=== PATIENT | female | born 1935 | race Hispanic/Latino ===

== ENCOUNTER 2020-12-16 18:44 | Inpatient (IN) | payer MEDICARE ==
[2020-12-16] MEDS ORDERED: SODIUM CHLORIDE 0.9% 1000 ML 1,000 ML ONE (18:53)
[2020-12-16] MEDS ORDERED: SODIUM CHLORIDE 0.9% 1000 ML 1,000 ML IV ONE ×3 (18:55→20:25)
[2020-12-16] MEDS ORDERED: methylPREDNISolone Sod Succinate 125 MG/2 ML INJ IV ONE (18:56)
[2020-12-16] MEDS ORDERED: IPRATROPIUM 0.02% NEBU 2.5 ML IH ONE (18:56)
[2020-12-16] MEDS ORDERED: ALBUTEROL 2.5 MG/3 ML NEBU IH ONE (18:56)
--- NOTE | 2020-12-16 19:00 | Emergency Department Report ---
ED Shortness of Breath HPI - General Stated Complaint: YENNY Time Seen by Provider: 12/16/20 18:53 Source: EMS - History of Present Illness Initial Comments: Patient is 85 years old female, longterm. Patient with history of COPD, dementia and recent diagnosis of COVID-19. Patient brought to the emergency room for evaluation of shortness of breath and tachypnea. Patient is not communicating. Patient found to have a blood pressure of 90/42. Sepsis protocol immediately initiated and patient started on normal saline, Zosyn, albuterol, Atrovent and Solu-Medrol. Complaint: shortness of breath -: days(s) Known History Of: COPD Context: recent URI - Related Data Allergies Allergy/AdvReac Type Severity Reaction Status Date / Time codeine AdvReac Unknown Verified 12/16/20 19:09 diphenhydramine AdvReac Unknown Verified 12/16/20 19:09 [From Benadryl] oxycodone AdvReac Unknown Verified 12/16/20 19:09 ED Review of Systems ROS: Stated complaint: YENNY Other details as noted in HPI Comment: Unobtainable due to pts medical conditions ED Physical Exam - General Limitations: Altered Mental Status General appearance: obtunded - Head Head exam: Present: atraumatic, normocephalic, normal inspection - Eye Eye exam: Present: normal appearance - ENT ENT exam: Present: mucous membranes dry - Neck Neck exam: Present: normal inspection, full ROM. Absent: tenderness, meningismus - Respiratory Respiratory exam: Present: respiratory distress, wheezes, rales, decreased breath sounds. Absent: rhonchi, accessory muscle use, prolonged expiratory - Cardiovascular Cardiovascular Exam: Present: tachycardia - GI/Abdominal GI/Abdominal exam: Present: soft, normal bowel sounds. Absent: distended, tenderness, guarding, rebound, rigid, organomegaly, mass, bruit, pulsatile mass, hernia - Extremities Exam Extremities exam: Absent: calf tenderness - Neurological Exam Neurological exam: Present: altered - Skin Skin exam: Present: warm, dry ED Course Vital Signs 12/16/20 12/16/20 12/16/20 18:48 19:00 19:02 Temperature 98.8 F Pulse Rate 125 H 119 H 118 H Pulse Rate [ Bilateral Throughout] Pulse Rate [ From Monitor] Respiratory 45 H 38 H 42 H Rate Respiratory Rate [Bilateral Throughout] Blood Pressure 101/37 81/43 O2 Sat by Pulse 96 91 Oximetry 12/16/20 12/16/20 12/16/20 19:10 19:15 19:20 Temperature Pulse Rate 118 H 115 H 114 H Pulse Rate [ 127 H Bilateral Throughout] Pulse Rate [ From Monitor] Respiratory 33 H 31 H 34 H Rate Respiratory 24 Rate [Bilateral Throughout] Blood Pressure 99/35 101/22 111/30 O2 Sat by Pulse 99 98 98 Oximetry 12/16/20 12/16/20 12/16/20 19:25 19:30 19:35 Temperature Pulse Rate 115 H 111 H 112 H Pulse Rate [ Bilateral Throughout] Pulse Rate [ From Monitor] Respiratory 32 H 54 H 39 H Rate Respiratory Rate [Bilateral Throughout] Blood Pressure 80/25 90/24 82/21 O2 Sat by Pulse 98 97 Oximetry 12/16/20 12/16/20 12/16/20 19:41 19:45 19:50 Temperature Pulse Rate 112 H 113 H 112 H Pulse Rate [ Bilateral Throughout] Pulse Rate [ From Monitor] Respiratory 53 H 40 H 74 H Rate Respiratory Rate [Bilateral Throughout] Blood Pressure 76/19 78/22 82/16 O2 Sat by Pulse 96 95 95 Oximetry 12/16/20 12/16/20 12/16/20 19:55 20:00 20:05 Temperature Pulse Rate 113 H 113 H 114 H Pulse Rate [ Bilateral Throughout] Pulse Rate [ From Monitor] Respiratory 68 H 55 H 48 H Rate Respiratory Rate [Bilateral Throughout] Blood Pressure 72/23 77/30 79/23 O2 Sat by Pulse 95 94 95 Oximetry 12/16/20 12/16/20 12/16/20 20:10 20:15 20:20 Temperature Pulse Rate 113 H 114 H 116 H Pulse Rate [ Bilateral Throughout] Pulse Rate [ From Monitor] Respiratory 69 H 54 H 39 H Rate Respiratory Rate [Bilateral Throughout] Blood Pressure 81/29 71/27 72/24 O2 Sat by Pulse 94 95 96 Oximetry 12/16/20 12/16/20 12/16/20 20:25 20:30 20:35 Temperature Pulse Rate 116 H 112 H 117 H Pulse Rate [ Bilateral Throughout] Pulse Rate [ From Monitor] Respiratory 69 H 37 H 35 H Rate Respiratory Rate [Bilateral Throughout] Blood Pressure 64/26 62/26 79/16 O2 Sat by Pulse 95 96 96 Oximetry 12/16/20 12/16/20 12/16/20 20:40 20:45 20:51 Temperature Pulse Rate 115 H 120 H 121 H Pulse Rate [ Bilateral Throughout] Pulse Rate [ From Monitor] Respiratory 36 H 37 H 78 H Rate Respiratory Rate [Bilateral Throughout] Blood Pressure 88/19 102/27 102/27 O2 Sat by Pulse 96 95 92 Oximetry 12/16/20 12/16/20 12/16/20 20:55 21:01 21:05 Temperature Pulse Rate 115 H 116 H 118 H Pulse Rate [ Bilateral Throughout] Pulse Rate [ From Monitor] Respiratory 34 H 29 H 28 H Rate Respiratory Rate [Bilateral Throughout] Blood Pressure 102/27 114/96 114/96 O2 Sat by Pulse 94 94 Oximetry 12/16/20 12/16/20 12/16/20 21:11 21:15 21:21 Temperature Pulse Rate 128 H 120 H 118 H Pulse Rate [ Bilateral Throughout] Pulse Rate [ From Monitor] Respiratory 33 H 27 H 34 H Rate Respiratory Rate [Bilateral Throughout] Blood Pressure 114/96 154/122 154/122 O2 Sat by Pulse 85 96 97 Oximetry 12/16/20 12/16/20 12/16/20 21:25 21:31 21:35 Temperature Pulse Rate 118 H 124 H 119 H Pulse Rate [ Bilateral Throughout] Pulse Rate [ From Monitor] Respiratory 49 H 41 H 28 H Rate Respiratory Rate [Bilateral Throughout] Blood Pressure 154/122 122/51 122/51 O2 Sat by Pulse 86 96 96 Oximetry 12/16/20 12/16/20 12/16/20 21:41 21:45 21:51 Temperature Pulse Rate 118 H 118 H 120 H Pulse Rate [ Bilateral Throughout] Pulse Rate [ From Monitor] Respiratory 63 H 25 H 23 Rate Respiratory Rate [Bilateral Throughout] Blood Pressure 113/13 113/13 113/13 O2 Sat by Pulse 97 97 95 Oximetry 12/16/20 12/16/20 12/16/20 21:55 22:01 22:05 Temperature Pulse Rate 120 H 120 H 120 H Pulse Rate [ Bilateral Throughout] Pulse Rate [ From Monitor] Respiratory 19 52 H 45 H Rate Respiratory Rate [Bilateral Throughout] Blood Pressure 95/25 95/25 95/25 O2 Sat by Pulse 96 96 98 Oximetry 12/16/20 12/16/20 12/16/20 22:11 22:15 22:21 Temperature Pulse Rate 124 H 124 H 117 H Pulse Rate [ Bilateral Throughout] Pulse Rate [ From Monitor] Respiratory 36 H 31 H 34 H Rate Respiratory Rate [Bilateral Throughout] Blood Pressure 56/13 56/13 56/13 O2 Sat by Pulse 95 95 96 Oximetry 12/16/20 12/16/20 12/16/20 22:25 22:31 22:35 Temperature Pulse Rate 120 H 121 H 121 H Pulse Rate [ Bilateral Throughout] Pulse Rate [ From Monitor] Respiratory 23 32 H 32 H Rate Respiratory Rate [Bilateral Throughout] Blood Pressure 84/33 84/33 80/26 O2 Sat by Pulse 96 94 96 Oximetry 12/16/20 12/16/20 12/16/20 22:41 22:45 22:51 Temperature Pulse Rate 120 H 124 H 124 H Pulse Rate [ Bilateral Throughout] Pulse Rate [ From Monitor] Respiratory 30 H 35 H 36 H Rate Respiratory Rate [Bilateral Throughout] Blood Pressure 80/26 80/26 80/26 O2 Sat by Pulse 96 97 97 Oximetry 12/16/20 12/16/20 12/16/20 22:55 23:00 23:05 Temperature Pulse Rate 124 H 118 H 115 H Pulse Rate [ Bilateral Throughout] Pulse Rate [ From Monitor] Respiratory 25 H 33 H 22 Rate Respiratory Rate [Bilateral Throughout] Blood Pressure 80/26 79/25 79/25 O2 Sat by Pulse 95 96 96 Oximetry 12/16/20 12/16/20 12/16/20 23:11 23:15 23:21 Temperature Pulse Rate 118 H 116 H 118 H Pulse Rate [ Bilateral Throughout] Pulse Rate [ From Monitor] Respiratory 33 H 24 43 H Rate Respiratory Rate [Bilateral Throughout] Blood Pressure 79/25 79/25 79/25 O2 Sat by Pulse 95 96 96 Oximetry 12/16/20 12/16/20 12/16/20 23:25 23:31 23:35 Temperature Pulse Rate 116 H 117 H 117 H Pulse Rate [ Bilateral Throughout] Pulse Rate [ From Monitor] Respiratory 31 H 23 21 Rate Respiratory Rate [Bilateral Throughout] Blood Pressure 79/25 84/48 84/48 O2 Sat by Pulse 97 96 96 Oximetry 12/16/20 12/16/20 12/16/20 23:41 23:45 23:51 Temperature Pulse Rate 121 H 120 H 121 H Pulse Rate [ Bilateral Throughout] Pulse Rate [ From Monitor] Respiratory 41 H 26 H 28 H Rate Respiratory Rate [Bilateral Throughout] Blood Pressure 84/48 84/48 72/42 O2 Sat by Pulse 95 96 96 Oximetry 12/16/20 12/17/20 12/17/20 23:55 00:01 00:05 Temperature Pulse Rate 121 H 122 H 122 H Pulse Rate [ Bilateral Throughout] Pulse Rate [ From Monitor] Respiratory 55 H 29 H 30 H Rate Respiratory Rate [Bilateral Throughout] Blood Pressure 72/42 72/42 78/28 O2 Sat by Pulse 96 96 96 Oximetry 12/17/20 12/17/20 12/17/20 00:11 00:15 00:21 Temperature Pulse Rate 122 H 122 H 121 H Pulse Rate [ Bilateral Throughout] Pulse Rate [ From Monitor] Respiratory 29 H 25 H 27 H Rate Respiratory Rate [Bilateral Throughout] Blood Pressure 58/37 84/48 84/48 O2 Sat by Pulse 96 96 96 Oximetry 12/17/20 12/17/20 12/17/20 00:25 00:31 00:35 Temperature Pulse Rate 117 H 114 H 116 H Pulse Rate [ Bilateral Throughout] Pulse Rate [ From Monitor] Respiratory 18 27 H 60 H Rate Respiratory Rate [Bilateral Throughout] Blood Pressure 84/48 96/38 96/38 O2 Sat by Pulse 95 97 97 Oximetry 12/17/20 12/17/20 12/17/20 00:41 00:51 01:01 Temperature Pulse Rate 116 H 114 H 112 H Pulse Rate [ Bilateral Throughout] Pulse Rate [ From Monitor] Respiratory 30 H 42 H 27 H Rate Respiratory Rate [Bilateral Throughout] Blood Pressure 96/38 92/48 84/34 O2 Sat by Pulse 96 98 98 Oximetry 12/17/20 12/17/20 12/17/20 01:10 01:55 01:57 Temperature 98.0 F Pulse Rate 114 H Pulse Rate [ Bilateral Throughout] Pulse Rate [ 119 H From Monitor] Respiratory 62 H Rate Respiratory Rate [Bilateral Throughout] Blood Pressure 84/34 O2 Sat by Pulse 97 95 Oximetry - Reevaluation(s) Reevaluation #1: 12/16/20 20:02 Patient blood pressure dropped to 69/40. Advised the nurse to start another IV lines and given another liter of fluids. Reevaluation #2: 12/16/20 21:03 Patient blood pressure now is improved significantly at 114/76. Oxygen saturation is 96% on 4 L. Patient improved after albuterol treatment. - Central Line Placement Right Femoral Consent Obtained: emergent situation Time Out Performed: Yes Patient Placed on Monitor/Pulse Ox: Yes MD Prep: mask, gown, gloves Central Line Prep: Povidone-Iodine 1%, Chlorhexidine scrub, sterile drapes applied Local Anesthesia Used: Lidocaine 1% Ultrasound Used for Placement: Yes Central Line Lumen Inserted: triple Reason for Insertion: Volume Resuscitation Bloods Obtained for Lab: No Central Line Position: good blood return, all ports aspirated, flus, sutured in place with 2-0 Dressing Applied: Tegaderm, sterile gauze/tape Patient Tolerated Procedure: well, no complications Complications: none ED Medical Decision Making - Lab Data Result diagrams: 12/17/20 07:59 12/17/20 07:59 - EKG Data -: EKG Interpreted by Me EKG shows normal: sinus rhythm Rate: tachycardia - EKG Data Interpretation: no acute changes - Radiology Data Radiology results: report reviewed - Medical Decision Making Patient is 85 years old female, longterm. Patient with history of COPD, dementia and recent diagnosis of COVID-19. Patient brought to the emergency room for evaluation of shortness of breath and tachypnea. Patient is not communicating. Patient found to have a blood pressure of 90/42. Sepsis protocol immediately initiated and patient started on normal saline, Zosyn, albuterol, Atrovent and Solu-Medrol. Chest x-ray showed right lower lobe pneumonia. Labs reviewed and showed a white blood cells of 18,000. Creatinine of 5.8 and potassium of 5.2. Patient is in acute renal failure secondary to sepsis. Patient received Zosyn and vancomycin. I discussed the patient with Dr. Garcia, he agreed to admit the patient to [facility] service for further management. Critical Care Time: Yes Critical care time in (mins) excluding proc time.: 30 Critical care attestation.: If time is entered above; I have spent that time in minutes in the direct care of this critically ill patient, excluding procedure time. ED Disposition Clinical Impression: Sepsis, Right lower lobe pneumonia, Acute renal failure, Acute hyperkalemia, Suspected COVID-19 virus infection Disposition: OP ADMIT IP TO THIS HOSP Is pt being admited?: Yes Condition: Stable
[2020-12-16 19:10] LABS: Basophils % (Auto) 0.2 % (0.0-1.8); Hematocrit 32.8 % (30.3-42.9); Hemoglobin 10.5 gm/dl (10.1-14.3); Lymphocytes # (Auto) 0.8 K/mm3 (1.2-5.4); Lymphocytes % (Auto) 4.1 % (13.4-35.0); Mean Corpuscular HGB Conc 32 % (30-34); Mean Corpuscular Volume 91 fl (79-97); Monocytes # (Auto) 1.1 K/mm3 (0.0-0.8); Monocytes % (Auto) 5.9 % (0.0-7.3)
[2020-12-16 19:11] LABS: Platelet Count 196 K/mm3 (140-440)
[2020-12-16] MEDS ORDERED: PIPERACILLIN/TAZOBACTAM 3.375 3.375 GM/50 ML BAG IV ONE (19:21)
--- NOTE | 2020-12-16 19:21 | XRay Report ---
CHEST 1 VIEW 12/16/2020 6:50 PM INDICATION / CLINICAL INFORMATION: Shortness of breath. COMPARISON: None available. FINDINGS: SUPPORT DEVICES: None. HEART / MEDIASTINUM: No significant abnormality. LUNGS / PLEURA: Hazy right basilar opacity that can indicate atelectasis and/or pneumonia. No pneumot horax. ADDITIONAL FINDINGS: No significant additional findings. IMPRESSION: 1. Hazy right basilar opacity that may indicate atelectasis and/or pneumonia. Signer Name: Edgar Nelson MD Signed: 12/16/2020 7:16 PM Workstation Name: [id number]
[2020-12-16 19:27] LABS: Alanine Aminotransferase 70 units/L (7-56); Albumin 3.1 g/dL (3.9-5); Calcium 8.8 mg/dL (8.4-10.2); Hemolysis Index 10
[2020-12-16 19:32] LABS: Bilirubin,Direct < 0.2 mg/dL (0-0.2)
[2020-12-16 19:33] LABS: BUN/Creatinine Ratio 33; Blood Urea Nitrogen 191 mg/dL (7-17)
[2020-12-16 19:36] LABS: ABG Base Excess -12.9 mmol/L (-2.0-3.0); ABG HCO3 12.7 mmol/L (20.0-26.0); ABG Methemoglobin 0.5 % (0.0-1.5); ABG Oxygen Saturation 93.4 % (95.0-99.0); ABG PCO2 28.5 mm Hg; ABG PH 7.266 pH Units (7.350-7.450); ABG PO2 72.2 mm Hg (80.0-90.0)
[2020-12-16 19:54] LABS: Chol/HDL Ratio 4.12 %
[2020-12-16] MEDS ORDERED: VANCOMYCIN/NS 1 GM/250 ML 1 GM/250 ML BAG IV ONE (20:26)
[2020-12-16 21:42] LABS: C-Reactive Protein 11.3 mg/dL (0.00-1.30)
[2020-12-16] MEDS ORDERED: ONDANSETRON 4 MG/2 ML INJ IV PRN (22:02)
[2020-12-16] MEDS ORDERED: MAGNESIUM HYDROXIDE (MOM) ORAL LIQD UDC PO PRN (22:02)
--- NOTE | 2020-12-16 22:15 | History and Physical Report ---
History of Present Illness Date of examination: 12/16/20 Date of admission: 12/16/2020 Chief complaint: Shortness of Breath History of present illness: 85-year-old female with known history of COPD, dementia and a recent history of COVID-19 who is resident of a intermediate presents to the emergency room today for evaluation of shortness of breath and tachypnea. Patient is nonverbal most of the history was obtained from the ER staff. Upon arrival in the emergency room patient was found to be hypotensive with a blood pressure of 69/40. Patient was immediately placed on IV fluid with improvement of blood pressure to the low 100s systolic. Work-up in the emergency room reveals a right lower lobe pneumonia. Labs reveals hyperkalemia of 5.2, elevated BUN and creatinine of 191 and 5.8 respectively. Patient is being admitted with pneumonia, acute renal failure and hyperkalemia. We will also rule out for COVID-19. Past History Past Medical History: COPD, other (Dementia,COVID-19 recently) Past Surgical History: No surgical history Social history: no significant social history, other ([facility] Resident) Family history: no significant family history Medications and Allergies Allergies Allergy/AdvReac Type Severity Reaction Status Date / Time codeine AdvReac Unknown Verified 12/16/20 19:09 diphenhydramine AdvReac Unknown Verified 12/16/20 19:09 [From Benadryl] oxycodone AdvReac Unknown Verified 12/16/20 19:09 Active Meds: Active Medications Acetaminophen (Acetaminophen 325 Mg Tab) 650 mg PO Q4H PRN PRN Reason: Pain MILD(1-3)/Fever >100.5/BUCKLEY Heparin Sodium (Porcine) (Heparin 5,000 Unit/1 Ml Vial) 5,000 unit SUB-Q Q8HR ZENIA Sodium Chloride (Nacl 0.9% 1000 Ml) 1,000 mls @ 125 mls/hr IV DIRECT ZENIA Piperacillin Sod/Tazobactam Sod (Zosyn/Ns 3.375gm/50ml) 3.375 gm in 50 mls @ 100 mls/hr IV Q8H ZENIA; Protocol Magnesium Hydroxide (Magnesium Hydroxide (Mom) Oral Liqd Udc) 30 ml PO Q4H PRN PRN Reason: Constipation Ondansetron HCl (Ondansetron 4 Mg/2 Ml Inj) 4 mg IV Q8H PRN PRN Reason: Nausea And Vomiting Sodium Chloride (Sodium Chloride 0.9% 10 Ml Flush Syringe) 10 ml IV BID ZENIA Sodium Chloride (Sodium Chloride 0.9% 10 Ml Flush Syringe) 10 ml IV PRN PRN PRN Reason: LINE FLUSH Review of Systems ROS unobtainable: due to mental status Exam - Constitutional Vitals: Temp Pulse Resp BP Pulse Ox 98.8 F 116 H 39 H 72/24 96 12/16/20 19:02 12/16/20 20:20 12/16/20 20:20 12/16/20 20:20 12/16/20 20:20 General appearance: Present: no acute distress, well-nourished, other (Dry Oral Mucosa) - EENT Eyes: Present: PERRL, EOM intact. Absent: scleral icterus ENT: hearing intact, clear oral mucosa, dentition normal - Neck Neck: Present: supple, normal ROM - Respiratory Respiratory effort: normal Respiratory: bilateral: diminished - Cardiovascular Heart Sounds: Present: S1 & S2. Absent: gallop, systolic murmur, diastolic murmur, rub, click - Extremities Extremities: no ischemia, pulses intact, pulses symmetrical, No edema, normal temperature, normal color, Full ROM Peripheral Pulses: within normal limits - Abdominal General gastrointestinal: Present: soft, non-tender, non-distended, normal bowel sounds. Absent: mass - Integumentary Integumentary: Present: clear, warm, dry. Absent: rash - Musculoskeletal Musculoskeletal: strength equal bilaterally - Psychiatric Psychiatric: appropriate mood/affect, intact judgment & insight, memory intact, cooperative - Neurologic Neurologic: CNII-XII intact, no focal deficits, moves all extremities HEART Score - HEART Score Troponin: Troponin T 0.113 ng/mL (0.00-0.029) H* 12/16/20 18:59 Results - Labs CBC & Chem 7: 12/16/20 18:59 12/16/20 21:03 Labs: Abnormal lab results 12/16/20 12/16/20 12/16/20 Range/Units 18:51 18:59 18:59 WBC 18.2 H (4.5-11.0) K/mm3 RBC 3.60 L (3.65-5.03) M/mm3 RDW 18.0 H (13.2-15.2) % Lymph % (Auto) 4.1 L (13.4-35.0) % Lymph # (Auto) 0.8 L (1.2-5.4) K/mm3 Leslie # (Auto) 1.1 H (0.0-0.8) K/mm3 Seg Neutrophils % 89.8 H (40.0-70.0) % Seg Neutrophils # 16.3 H (1.8-7.7) K/mm3 D-Dimer (0-234) ng/mlDDU ABG pH (7.350-7.450) pH Units ABG pO2 (80.0-90.0) mm Hg ABG HCO3 (20.0-26.0) mmol/L ABG O2 Saturation (95.0-99.0) % ABG Base Excess (-2.0-3.0) mmol/L ABG Hemoglobin (12.0-16.0) gm/dl Oxyhemoglobin (95.0-99.0) % Potassium (3.6-5.0) mmol/L Carbon Dioxide (22-30) mmol/L BUN (7-17) mg/dL Creatinine (0.6-1.2) mg/dL Glucose (65-100) mg/dL POC Glucose 160 H (70-105) mg/dL Ferritin (10.0-200.0) ng/mL ALT (7-56) units/L Lactate Dehydrogenase (91-180) units/L Troponin T 0.113 H* (0.00-0.029) ng/mL C-Reactive Protein (0.00-1.30) mg/dL NT-Pro-B Natriuret Pep (0-900) pg/mL Total Protein (6.3-8.2) g/dL Albumin (3.9-5) g/dL HDL Cholesterol 24 L (40-59) mg/dL 12/16/20 12/16/20 12/16/20 Range/Units 18:59 18:59 19:29 WBC (4.5-11.0) K/mm3 RBC (3.65-5.03) M/mm3 RDW (13.2-15.2) % Lymph % (Auto) (13.4-35.0) % Lymph # (Auto) (1.2-5.4) K/mm3 Leslie # (Auto) (0.0-0.8) K/mm3 Seg Neutrophils % (40.0-70.0) % Seg Neutrophils # (1.8-7.7) K/mm3 D-Dimer 3183.35 H (0-234) ng/mlDDU ABG pH 7.266 L (7.350-7.450) pH Units ABG pO2 72.2 L (80.0-90.0) mm Hg ABG HCO3 12.7 L (20.0-26.0) mmol/L ABG O2 Saturation 93.4 L (95.0-99.0) % ABG Base Excess -12.9 L (-2.0-3.0) mmol/L ABG Hemoglobin 11.4 L (12.0-16.0) gm/dl Oxyhemoglobin 91.6 L (95.0-99.0) % Potassium 5.2 H (3.6-5.0) mmol/L Carbon Dioxide 13 L (22-30) mmol/L BUN 191 H (7-17) mg/dL Creatinine 5.8 H (0.6-1.2) mg/dL Glucose 187 H (65-100) mg/dL POC Glucose (70-105) mg/dL Ferritin (10.0-200.0) ng/mL ALT 70 H (7-56) units/L Lactate Dehydrogenase (91-180) units/L Troponin T (0.00-0.029) ng/mL C-Reactive Protein (0.00-1.30) mg/dL NT-Pro-B Natriuret Pep 1116 H (0-900) pg/mL Total Protein 5.7 L (6.3-8.2) g/dL Albumin 3.1 L (3.9-5) g/dL HDL Cholesterol (40-59) mg/dL 12/16/20 12/16/20 Range/Units 21:03 21:03 WBC (4.5-11.0) K/mm3 RBC (3.65-5.03) M/mm3 RDW (13.2-15.2) % Lymph % (Auto) (13.4-35.0) % Lymph # (Auto) (1.2-5.4) K/mm3 Leslie # (Auto) (0.0-0.8) K/mm3 Seg Neutrophils % (40.0-70.0) % Seg Neutrophils # (1.8-7.7) K/mm3 D-Dimer (0-234) ng/mlDDU ABG pH (7.350-7.450) pH Units ABG pO2 (80.0-90.0) mm Hg ABG HCO3 (20.0-26.0) mmol/L ABG O2 Saturation (95.0-99.0) % ABG Base Excess (-2.0-3.0) mmol/L ABG Hemoglobin (12.0-16.0) gm/dl Oxyhemoglobin (95.0-99.0) % Potassium (3.6-5.0) mmol/L Carbon Dioxide (22-30) mmol/L BUN (7-17) mg/dL Creatinine (0.6-1.2) mg/dL Glucose 172 H (65-100) mg/dL POC Glucose (70-105) mg/dL Ferritin 559.4 H (10.0-200.0) ng/mL ALT (7-56) units/L Lactate Dehydrogenase 249 H (91-180) units/L Troponin T (0.00-0.029) ng/mL C-Reactive Protein 11.30 H (0.00-1.30) mg/dL NT-Pro-B Natriuret Pep (0-900) pg/mL Total Protein (6.3-8.2) g/dL Albumin (3.9-5) g/dL HDL Cholesterol (40-59) mg/dL Assessment and Plan - Patient Problems (1) Right lower lobe pneumonia Current Visit: Yes Status: Acute Plan to address problem: Patient placed on empiric antibiotics. Will await culture results. (2) Sepsis Current Visit: Yes Status: Acute Plan to address problem: Secondary to the pneumonia. Continue on IV fluid . Will monitor labs. (3) Acute hyperkalemia Current Visit: Yes Status: Acute Plan to address problem: Will monitor potassium levels. Continue on IV fluid. (4) Acute renal failure Current Visit: Yes Status: Acute Plan to address problem: Possible pre-renal. Patient placed on IV fluid. However, consult placed to nephrology for further recommendation. (5) Suspected COVID-19 virus infection Current Visit: Yes Status: Acute Plan to address problem: Patient placed on isolation precaution. Consult placed to infectious disease for evaluation. (6) DVT prophylaxis Current Visit: Yes Status: Acute Plan to address problem: Patient placed on SQ heparin (7) Full code status Current Visit: Yes Status: Acute Plan to address problem: Full Code
[2020-12-16] MEDS ORDERED: VANCOMYCIN PHARMACY TO DOSE IV SCH (23:00)
[2020-12-16] MEDS ORDERED: VANCOMYCIN 750 MG in SODIUM CHLORIDE 0.9% 250ML 250 ML IV ONE (23:00)
[2020-12-16] MEDS ORDERED: PIPERACILLIN/TAZOBACTAM 3.375 3.375 GM/50 ML BAG IV SCH (23:00)
[2020-12-16] MEDS: NORepinephrine/NS 8 MG-250 ML 8 MG/250 ML INFUS..BTL IV SCH (23:45)
[2020-12-17] MEDS: NORepinephrine/NS 8 MG-250 ML 8 MG/250 ML INFUS..BTL IV SCH ×2 (00:15→00:45)
[2020-12-17] MEDS: SODIUM CHLORIDE 0.9% 1000 ML 1,000 ML IV SCH ×2 (01:51→09:58)
[2020-12-17] MEDS: HEPARIN 5,000 UNIT/1 ML VIAL SUB-Q SCH ×3 (07:47→21:33)
[2020-12-17 08:24] LABS: Hematocrit 31.4 % (30.3-42.9); Hemoglobin 10.1 gm/dl (10.1-14.3); Mean Corpuscular HGB Conc 32 % (30-34); Mean Corpuscular Volume 91 fl (79-97); Platelet Count 149 K/mm3 (140-440); Red Blood Count 3.45 M/mm3 (3.65-5.03); Red Cell Distribution Width 17.4 % (13.2-15.2)
[2020-12-17 08:30] LABS: INR 1.3 (0.87-1.13)
[2020-12-17 08:40] LABS: Calcium 7.7 mg/dL (8.4-10.2)
[2020-12-17] MEDS ORDERED: PIPERACILLIN/TAZOBACTAM 3.375 3.375 GM/50 ML BAG IV SCH (09:00)
[2020-12-17] MEDS: CEFEPIME/NS 2 GM/100 ML 2 GM/100 ML BAG IV SCH (09:57)
[2020-12-17] MEDS ORDERED: dexAMETHasone 4 MG/ML VIAL IV SCH (10:00)
[2020-12-17 11:15] LABS: Total Cells Counted 100
[2020-12-17 11:19] LABS: Burr Cells Rare; Platelet Estimate Consistent w Auto
--- NOTE | 2020-12-17 13:12 | Consultation ---
History of Present Illness - Reason for Consult acute renal failure - History of Present Illness 85-year-old frail female with past medical history of advanced dementia and COPD along with history of diabetes, coming from a [facility] facility, with a recent COVID-19 pneumonia infection per history, presented to emergency department at this time secondary to worsening shortness of breath, weakness, and generalized fatigue. Chest x-ray concerning for possible underlying pneumonia. She is under isolation for COVID-19 pneumonia precautions. She had the testing done this morning and we are pending results at this time. Nephrology was consulted secondary to acute kidney injury that was noted upon admission. Renal function is slowly showing improvement with IV fluid hydration. She is nonoliguric with Dexter catheter in place. Past History Past Medical History: COPD, other (Dementia,COVID-19 recently) Past Surgical History: No surgical history Social history: no significant social history, other ([facility] Resident) Family history: no significant family history Medications and Allergies Allergies Allergy/AdvReac Type Severity Reaction Status Date / Time codeine AdvReac Unknown Verified 12/16/20 19:09 diphenhydramine AdvReac Unknown Verified 12/16/20 19:09 [From Benadryl] oxycodone AdvReac Unknown Verified 12/16/20 19:09 Active Meds: Active Medications Acetaminophen (Acetaminophen 325 Mg Tab) 650 mg PO Q4H PRN PRN Reason: Pain MILD(1-3)/Fever >100.5/BUCKLEY Dexamethasone (Dexamethasone 4 Mg/Ml Vial) 6 mg IV Q24HR ZENIA Last Admin: 12/17/20 09:57 Dose: 6 mg Documented by: Heparin Sodium (Porcine) (Heparin 5,000 Unit/1 Ml Vial) 5,000 unit SUB-Q Q8HR ZENIA Last Admin: 12/17/20 07:47 Dose: Not Given Documented by: Sodium Chloride (Nacl 0.9% 1000 Ml) 1,000 mls @ 125 mls/hr IV DIRECT ZENIA Last Admin: 12/17/20 09:58 Dose: 125 mls/hr Documented by: NORepinephrine/NS 8 MG-250 ML (Norepinephrine/Ns 8 Mg-250 Ml (Double Conc)) 8 mg in 250 mls @ 3.75 mls/hr IV TITRATE ZENIA; Protocol Last Titration: 12/17/20 09:55 Dose: 0 mcg/min, 0 mls/hr Documented by: Cefepime HCl (Cefepime/Ns 2 Gm/100 Ml) 2 gm in 100 mls @ 200 mls/hr IV Q24H [facility]; Protocol Last Admin: 12/17/20 09:57 Dose: 200 mls/hr Documented by: Magnesium Hydroxide (Magnesium Hydroxide (Mom) Oral Liqd Udc) 30 ml PO Q4H PRN PRN Reason: Constipation Ondansetron HCl (Ondansetron 4 Mg/2 Ml Inj) 4 mg IV Q8H PRN PRN Reason: Nausea And Vomiting Sodium Chloride (Sodium Chloride 0.9% 10 Ml Flush Syringe) 10 ml IV BID [facility] Last Admin: 12/17/20 09:57 Dose: 10 ml Documented by: Sodium Chloride (Sodium Chloride 0.9% 10 Ml Flush Syringe) 10 ml IV PRN PRN PRN Reason: LINE FLUSH Review of Systems ROS unobtainable: due to mental status Exam - Vital Signs Vital signs: Vital Signs Pulse Resp 125 H 45 H 12/16/20 18:48 12/16/20 18:48 - General Appearance General appearance: chronically ill EENT: ATNC Neck: Present: neck supple Respiratory: Decreased Breath Sounds Heart: regular Gastrointestinal: Present: normal Integumentary: ulcer (Decubitus ulcer) Neurologic: other (Nonverbal) Musculoskeletal: Present: deferred Results - Lab Results 12/17/20 07:59 12/17/20 07:59 Most recent lab results ABG pH 7.266 pH Units (7.350-7.450) L 12/16/20 19:29 ABG pCO2 28.5 mm Hg 12/16/20 19:29 ABG pO2 72.2 mm Hg (80.0-90.0) L 12/16/20 19:29 ABG HCO3 12.7 mmol/L (20.0-26.0) L 12/16/20 19:29 ABG O2 Saturation 93.4 % (95.0-99.0) L 12/16/20 19:29 Calcium 7.7 mg/dL (8.4-10.2) L 12/17/20 07:59 Assessment and Plan - Patient Problems (1) Acute renal failure Current Visit: Yes Status: Acute Plan to address problem: Likely prerenal injury versus possible acute tubular necrosis in the setting of pneumonia and sepsis. With gentle IV fluid hydration it seems that her renal function is slowly starting to improve. We will continue with conservative management. Would adjust her IV fluids to D5 half-normal saline given her worsening hypernatremia. Otherwise would continue with current regimen at this time. We will obtain renal ultrasound for further evaluation and will also add urine electrolytes to current study. We will also add urine analysis for further evaluation. (2) Acute hyperkalemia Current Visit: Yes Status: Acute Plan to address problem: In the setting of acute kidney injury. With appropriate fluid hydration her serum potassium levels have improved at this time. We will continue to monitor. (3) Right lower lobe pneumonia Current Visit: Yes Status: Acute Plan to address problem: Infectious disease consultation appreciated. Patient is under contact precautions for possible underlying COVID-19 pneumonia. We will follow up with further recommendation this time. Please ensure that antibiotics are dosed appropriately for patient's decreased renal function at this time. (4) Suspected COVID-19 virus infection Current Visit: Yes Status: Acute Plan to address problem: We will follow up results of her COVID-19 test at this time.
--- NOTE | 2020-12-17 14:06 | Progress Note ---
Assessment and Plan Assessment and plan: 85-year-old female with known history of COPD, dementia and a recent history of COVID-19 who is resident of a snf presents to the emergency room today for evaluation of shortness of breath and tachypnea. Patient is nonverbal most of the history was obtained from the ER staff. Upon arrival in the emergency room patient was found to be hypotensive with a blood pressure of 69/40. Patient was immediately placed on IV fluid with improvement of blood pressure to the low 100s systolic. Work-up in the emergency room reveals a right lower lobe pneumonia. Labs reveals hyperkalemia of 5.2, elevated BUN and creatinine of 191 and 5.8 respectively. Patient is being admitted with pneumonia, acute renal failure and hyperkalemia. We will also rule out for COVID-19. 12/18/20 - Will check ECHO, obtain Psych consultation for medications management. - Reviewed chest xray, will transfer patient to the [facility] - Obtain ID consultation. - Renal function improving, and Hyperkalemia improved. (1) Right lower lobe pneumonia Current Visit: Yes Status: Acute Plan to address problem: Patient placed on empiric antibiotics. Will await culture results. (2) Sepsis Current Visit: Yes Status: Acute Plan to address problem: Secondary to the pneumonia. Continue on IV fluid . Will monitor labs. (3) Acute hyperkalemia Current Visit: Yes Status: Acute Plan to address problem: Will monitor potassium levels. Continue on IV fluid. (4) Acute renal failure likely ATN from hypotension Current Visit: Yes Status: Acute Plan to address problem: Possible pre-renal. Patient placed on IV fluid. However, consult placed to nephrology for further recommendation. (5) Suspected COVID-19 virus infection Current Visit: Yes Status: Acute Plan to address problem: Patient placed on isolation precaution. Consult placed to infectious disease for evaluation. (6) DVT prophylaxis Current Visit: Yes Status: Acute Plan to address problem: Patient placed on SQ heparin (7) Full code status Current Visit: Yes Status: Acute Plan to address problem: Full Code History Interval history: Patient seen and examined, no clinical change, still with tachycardia. Reviewed medication from outside records it appears the patient is on some chronic psych medications. Hospitalist Physical - Physical exam Narrative exam: General appearance: Present: no acute distress, well-nourished, other (Dry Oral Mucosa) - EENT Eyes: Present: PERRL, EOM intact. Absent: scleral icterus ENT: hearing intact, clear oral mucosa, dentition normal - Neck Neck: Present: supple, normal ROM - Respiratory Respiratory effort: normal Respiratory: bilateral: diminished - Cardiovascular Heart Sounds: Present: S1 & S2. Absent: gallop, systolic murmur, diastolic murmur, rub, click - Extremities Extremities: no ischemia, pulses intact, pulses symmetrical, No edema, normal temperature, normal color, Full ROM Peripheral Pulses: within normal limits - Abdominal General gastrointestinal: Present: soft, non-tender, non-distended, normal bowel sounds. Absent: mass - Integumentary Integumentary: Present: clear, warm, dry. Absent: rash - Musculoskeletal Musculoskeletal: strength equal bilaterally - Psychiatric Psychiatric: appropriate mood/affect, intact judgment & insight, memory intact, cooperative - Neurologic Neurologic: CNII-XII intact, no focal deficits, moves all extremities - Constitutional Vitals: Temp Pulse Resp BP Pulse Ox 98.4 F 110 H 24 111/45 98 12/17/20 12:00 12/17/20 14:00 12/17/20 14:00 12/17/20 14:00 12/17/20 14:00 General appearance: Present: no acute distress, well-nourished, other (Dry Oral Mucosa) HEART Score - HEART Score Troponin: Troponin T 0.070 ng/mL (0.00-0.029) H D 12/17/20 10:15 Results - Labs CBC & Chem 7: 12/18/20 05:01 12/18/20 05:01 Labs: Laboratory Last Values WBC 15.5 K/mm3 (4.5-11.0) H 12/17/20 07:59 RBC 3.45 M/mm3 (3.65-5.03) L 12/17/20 07:59 Hgb 10.1 gm/dl (10.1-14.3) 12/17/20 07:59 Hct 31.4 % (30.3-42.9) 12/17/20 07:59 MCV 91 fl (79-97) 12/17/20 07:59 MCH 29 pg (28-32) 12/17/20 07:59 MCHC 32 % (30-34) 12/17/20 07:59 RDW 17.4 % (13.2-15.2) H 12/17/20 07:59 Plt Count 149 K/mm3 (140-440) 12/17/20 07:59 Lymph % (Auto) 4.1 % (13.4-35.0) L 12/16/20 18:59 Ector % (Auto) 5.9 % (0.0-7.3) 12/16/20 18:59 Eos % (Auto) 0.0 % (0.0-4.3) 12/16/20 18:59 Baso % (Auto) 0.2 % (0.0-1.8) 12/16/20 18:59 Lymph # (Auto) 0.8 K/mm3 (1.2-5.4) L 12/16/20 18:59 Ector # (Auto) 1.1 K/mm3 (0.0-0.8) H 12/16/20 18:59 Eos # (Auto) 0.0 K/mm3 (0.0-0.4) 12/16/20 18:59 Baso # (Auto) 0.0 K/mm3 (0.0-0.1) 12/16/20 18:59 Add Manual Diff Complete 12/17/20 07:59 Total Counted 100 12/17/20 07:59 Seg Neutrophils % Spanish Tutor 12/17/20 07:59 Seg Neuts % (Manual) 98.0 % (40.0-70.0) H 12/17/20 07:59 Lymphocytes % (Manual) 1.0 % (13.4-35.0) L 12/17/20 07:59 Monocytes % (Manual) 1.0 % (0.0-7.3) 12/17/20 07:59 Nucleated RBC % Not Reportable 12/17/20 07:59 Seg Neutrophils # 16.3 K/mm3 (1.8-7.7) H 12/16/20 18:59 Seg Neutrophils # Man 15.2 K/mm3 (1.8-7.7) H 12/17/20 07:59 Band Neutrophils # 0.0 K/mm3 12/17/20 07:59 Lymphocytes # (Manual) 0.2 K/mm3 (1.2-5.4) L 12/17/20 07:59 Abs React Lymphs (Man) 0.0 K/mm3 12/17/20 07:59 Monocytes # (Manual) 0.2 K/mm3 (0.0-0.8) 12/17/20 07:59 Eosinophils # (Manual) 0.0 K/mm3 (0.0-0.4) 12/17/20 07:59 Basophils # (Manual) 0.0 K/mm3 (0.0-0.1) 12/17/20 07:59 Metamyelocytes # 0.0 K/mm3 12/17/20 07:59 Myelocytes # 0.0 K/mm3 12/17/20 07:59 Promyelocytes # 0.0 K/mm3 12/17/20 07:59 Blast Cells # 0.0 K/mm3 12/17/20 07:59 WBC Morphology Not Reportable 12/17/20 07:59 Hypersegmented Neuts Not Reportable 12/17/20 07:59 Hyposegmented Neuts Not Reportable 12/17/20 07:59 Hypogranular Neuts Not Reportable 12/17/20 07:59 Smudge Cells Not Reportable 12/17/20 07:59 Toxic Granulation Not Reportable 12/17/20 07:59 Toxic Vacuolation Not Reportable 12/17/20 07:59 Dohle Bodies Not Reportable 12/17/20 07:59 Pelger-Huet Anomaly Not Reportable 12/17/20 07:59 Dave Rods Not Reportable 12/17/20 07:59 Platelet Estimate Consistent w auto 12/17/20 07:59 Clumped Platelets Not Reportable 12/17/20 07:59 Plt Clumps, EDTA Not Reportable 12/17/20 07:59 Large Platelets Not Reportable 12/17/20 07:59 Giant Platelets Not Reportable 12/17/20 07:59 Platelet Satelliting Not Reportable 12/17/20 07:59 Plt Morphology Comment Not Reportable 12/17/20 07:59 RBC Morphology Not Reportable 12/17/20 07:59 Dimorphic RBCs Not Reportable 12/17/20 07:59 Polychromasia Not Reportable 12/17/20 07:59 Hypochromasia Not Reportable 12/17/20 07:59 Poikilocytosis Not Reportable 12/17/20 07:59 Anisocytosis Not Reportable 12/17/20 07:59 Microcytosis Not Reportable 12/17/20 07:59 Macrocytosis Not Reportable 12/17/20 07:59 Spherocytes Not Reportable 12/17/20 07:59 Pappenheimer Bodies Not Reportable 12/17/20 07:59 Sickle Cells Not Reportable 12/17/20 07:59 Target Cells Not Reportable 12/17/20 07:59 Tear Drop Cells Not Reportable 12/17/20 07:59 Ovalocytes Not Reportable 12/17/20 07:59 Helmet Cells Not Reportable 12/17/20 07:59 [place] Bodies Not Reportable 12/17/20 07:59 [place] Rings Not Reportable 12/17/20 07:59 Lisa Cells Rare 12/17/20 07:59 Bite Cells Not Reportable 12/17/20 07:59 Crenated Cell Not Reportable 12/17/20 07:59 Elliptocytes Few 12/17/20 07:59 Acanthocytes (Spur) Not Reportable 12/17/20 07:59 Rouleaux Not Reportable 12/17/20 07:59 Hemoglobin C Crystals Not Reportable 12/17/20 07:59 Schistocytes Not Reportable 12/17/20 07:59 Malaria parasites Not Reportable 12/17/20 07:59 Ant Bodies Not Reportable 12/17/20 07:59 Hem Pathologist Commnt No 12/17/20 07:59 PT 16.0 Sec. (12.2-14.9) H 12/17/20 07:59 INR 1.30 (0.87-1.13) H 12/17/20 07:59 APTT 26.6 Sec. (24.2-36.6) 12/16/20 18:59 D-Dimer 3183.35 ng/mlDDU (0-234) H 12/16/20 18:59 ABG pH 7.266 pH Units (7.350-7.450) L 12/16/20 19:29 ABG pCO2 28.5 mm Hg 12/16/20 19:29 ABG pO2 72.2 mm Hg (80.0-90.0) L 12/16/20 19:29 ABG HCO3 12.7 mmol/L (20.0-26.0) L 12/16/20 19:29 ABG O2 Saturation 93.4 % (95.0-99.0) L 12/16/20 19:29 ABG O2 Content 14.7 (0.0-44) 12/16/20 19:29 ABG Base Excess -12.9 mmol/L (-2.0-3.0) L 12/16/20 19:29 ABG Hemoglobin 11.4 gm/dl (12.0-16.0) L 12/16/20 19:29 ABG Carboxyhemoglobin 1.4 % (0.0-5.0) 12/16/20 19: ABG Methemoglobin 0.5 % (0.0-1.5) 12/16/20 19: Oxyhemoglobin 91.6 % (95.0-99.0) L 12/16/20 19: FiO2 32 % 12/16/20 19:29 Sodium 147 mmol/L (137-145) H D 12/17/20 07:59 Potassium 4.7 mmol/L (3.6-5.0) 12/17/20 07:59 Chloride 119.5 mmol/L (98-107) H 12/17/20 07:59 Carbon Dioxide 10 mmol/L (22-30) L 12/17/20 07:59 Anion Gap 22 mmol/L 12/17/20 07:59 BUN 152 mg/dL (7-17) H 12/17/20 07:59 Creatinine 4.2 mg/dL (0.6-1.2) H 12/17/20 07:59 Estimated GFR 10 ml/min 12/17/20 07:59 BUN/Creatinine Ratio 36 % 12/17/20 07:59 Glucose 168 mg/dL (65-100) H 12/17/20 07:59 POC Glucose 116 mg/dL (70-105) H 12/17/20 11:34 Lactic Acid 1.90 mmol/L (0.7-2.0) 12/16/20 22:10 Calcium 7.7 mg/dL (8.4-10.2) L 12/17/20 07:59 Ferritin 559.4 ng/mL (10.0-200.0) H 12/16/20 21:03 Total Bilirubin 0.30 mg/dL (0.1-1.2) 12/16/20 18:59 Direct Bilirubin < 0.2 mg/dL (0-0.2) 12/16/20 18:59 Indirect Bilirubin 0.1 mg/dL 12/16/20 18:59 AST 21 units/L (5-40) 12/16/20 18:59 ALT 70 units/L (7-56) H 12/16/20 18:59 Alkaline Phosphatase 94 units/L (35-129) 12/16/20 18:59 Lactate Dehydrogenase 249 units/L (91-180) H 12/16/20 21:03 Troponin T 0.070 ng/mL (0.00-0.029) H D 12/17/20 10:15 C-Reactive Protein 11.30 mg/dL (0.00-1.30) H 12/16/20 21:03 NT-Pro-B Natriuret Pep 1116 pg/mL (0-900) H 12/16/20 18:59 Total Protein 5.7 g/dL (6.3-8.2) L 12/16/20 18:59 Albumin 3.1 g/dL (3.9-5) L 12/16/20 18:59 Albumin/Globulin Ratio 1.2 % 12/16/20 18:59 Triglycerides 104 mg/dL (2-149) 12/16/20 18:59 Cholesterol 99 mg/dL (50-199) 12/16/20 18:59 LDL Cholesterol Direct 59 mg/dL (50-130) 12/16/20 18:59 HDL Cholesterol 24 mg/dL (40-59) L 12/16/20 18:59 Cholesterol/HDL Ratio 4.12 % 12/16/20 18:59 Procalcitonin 0.99 ng/mL (<0.15) 12/16/20 21:03 Microbiology: Microbiology 12/16/20 18:59 Peripheral/Venous Blood Culture - Preliminary Culture in Progress 12/16/20 18:59 Peripheral/Venous Blood Culture - Preliminary Culture in Progress Dexter/IV: Voiding Method Indwelling Catheter Active Medications - Current Medications Current Medications: Generic Name Dose Route Start Last Admin Trade Name Freq PRN Reason Stop Dose Admin Acetaminophen 650 mg 12/16/20 22:02 Acetaminophen 325 Mg Tab PO Q4H PRN Pain MILD(1-3)/Fever >100.5/BUCKLEY Dexamethasone 6 mg 12/17/20 10:00 12/17/20 09:57 Dexamethasone 4 Mg/Ml Vial IV 6 mg Q24HR ZENIA Administration Heparin Sodium (Porcine) 5,000 unit 12/17/20 06:00 12/17/20 13:21 Heparin 5,000 Unit/1 Ml Vial SUB-Q 5,000 unit Q8HR ZENIA Administration NORepinephrine/NS 8 MG-250 ML 8 mg in 250 mls @ 3.75 mls/hr 12/16/20 23:45 12/17/20 09:55 Norepinephrine/Ns 8 Mg-250 Ml (Double Conc) IV 0 mcg/min TITRATE ZENIA 0 mls/hr Titration Protocol 2 MCG/MIN Cefepime HCl 2 gm in 100 mls @ 200 mls/hr 12/17/20 10:00 12/17/20 09:57 Cefepime/Ns 2 Gm/100 Ml IV 200 mls/hr Q24H ZENIA Administration Protocol Dextrose/Sodium Chloride 1,000 mls @ 125 mls/hr 12/17/20 14:00 D5/0.45ns IV DIRECT ZENIA Magnesium Hydroxide 30 ml 12/16/20 22:02 Magnesium Hydroxide (Mom) Oral Liqd Udc PO Q4H PRN Constipation Ondansetron HCl 4 mg 12/16/20 22:02 Ondansetron 4 Mg/2 Ml Inj IV Q8H PRN Nausea And Vomiting Sodium Chloride 10 ml 12/17/20 10:00 12/17/20 09:57 Sodium Chloride 0.9% 10 Ml Flush Syringe IV 10 ml BID ZENIA Administration Sodium Chloride 10 ml 12/16/20 22:02 Sodium Chloride 0.9% 10 Ml Flush Syringe IV PRN PRN LINE FLUSH Nutrition/Malnutrition Assess - Dietary Evaluation Nutrition/Malnutrition Findings: Nutrition Notes Start: 12/17/20 10:35 Freq: Status: Active Protocol: Document 12/17/20 10:35 URSULA (Rec: 12/17/20 10:45 [email or web address] [id number]) Nutrition Notes 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 Pt from [place] with PMHx of COVID-19. Nephrology consulted. Burn Absent Trauma Absent Skin Integrity/Comment Pt with pressure ulcers Minimum of two criteria No #1 Nutrition Diagnosis Predicted suboptimal energy intake Etiology advanced age, medical dx As Evidenced by Signs and Symptoms pt with dementia, ? dx of COVID-19 Is patient on ventilator? No Is Patient Ambulatory and/or Out of Bed No REE-([facility]-confined to bed) 1635.060 Kcal/Kg value to use for calculation 14 Approximate Energy Requirements Using 1231 kcal/Kg Calculation Used for Recommendations Kcal/kg Additional Notes Pro needs 2g/kg IBW: up to 123g/day Fluid needs per MD Nutrition Intervention Change Diet Order: Continue current diet order as tolerated; add mech soft restriction Goal #1 PO tolerance Goal #2 PO intakes to meet at least 75 % energy and pro needs Anticipated Discharge Needs: Unable to identify at this time Follow-Up By: 12/20/20 Additional Comments F/U: intakes, renal function/ need for HD
--- NOTE | 2020-12-17 14:14 | Consultation ---
History of Present Illness - Reason for Consult Consult date: 12/17/20 r/o COVID Requesting physician: JUAN PABLO PEDRAZA - History of Present Illness 85-year-old female with known history of COPD, dementia and a recent history of COVID-19 who is resident of a intermediate, admitted on 12/17/2019 secondary to worsening shortness of breath and tachypnea. Patient is not the best historian, unable to provide history. On arrival, temperature 98.8, HR 125, RR 45, O2 sat 96%, BP 101/37--><81/43. Initial WBC 18.2. Hemoglobin 10.8. 25.8. PaO2 72. ALT 70. Troponin 0.113. CRP 11.3. Procalcitonin 0.9. BNP 1116. Culture 12/16/2020 no growth today. Chest x-ray shows right extremity asymmetry\density. Review of Systems: Unable to obtain due to confusion Past History Past Medical History: COPD, other (Dementia,COVID-19 recently) Past Surgical History: No surgical history Social history: no significant social history, other (Jail Resident) Family history: no significant family history Medications and Allergies Allergies Allergy/AdvReac Type Severity Reaction Status Date / Time codeine AdvReac Unknown Verified 12/16/20 19:09 diphenhydramine AdvReac Unknown Verified 12/16/20 19:09 [From Benadryl] oxycodone AdvReac Unknown Verified 12/16/20 19:09 Active Meds: Active Medications Acetaminophen (Acetaminophen 325 Mg Tab) 650 mg PO Q4H PRN PRN Reason: Pain MILD(1-3)/Fever >100.5/[place]LEY Dexamethasone (Dexamethasone 4 Mg/Ml Vial) 6 mg IV Q24HR ZENIA Last Admin: 12/17/20 09:57 Dose: 6 mg Documented by: Heparin Sodium (Porcine) (Heparin 5,000 Unit/1 Ml Vial) 5,000 unit SUB-Q Q8HR ZENIA Last Admin: 12/17/20 13:21 Dose: 5,000 unit Documented by: NORepinephrine/NS 8 MG-250 ML (Norepinephrine/Ns 8 Mg-250 Ml (Double Conc)) 8 mg in 250 mls @ 3.75 mls/hr IV TITRATE ZENIA; Protocol Last Titration: 12/17/20 09:55 Dose: 0 mcg/min, 0 mls/hr Documented by: Cefepime HCl (Cefepime/Ns 2 Gm/100 Ml) 2 gm in 100 mls @ 200 mls/hr IV Q24H [facility]; Protocol Last Admin: 12/17/20 09:57 Dose: 200 mls/hr Documented by: Dextrose/Sodium Chloride (D5/0.45ns) 1,000 mls @ 125 mls/hr IV DIRECT ZENIA Magnesium Hydroxide (Magnesium Hydroxide (Mom) Oral Liqd Udc) 30 ml PO Q4H PRN PRN Reason: Constipation Ondansetron HCl (Ondansetron 4 Mg/2 Ml Inj) 4 mg IV Q8H PRN PRN Reason: Nausea And Vomiting Sodium Chloride (Sodium Chloride 0.9% 10 Ml Flush Syringe) 10 ml IV BID [facility] Last Admin: 12/17/20 09:57 Dose: 10 ml Documented by: Sodium Chloride (Sodium Chloride 0.9% 10 Ml Flush Syringe) 10 ml IV PRN PRN PRN Reason: LINE FLUSH Physical Examination - Physical Exam Narrative exam: General appearance: Alert, debilitated, confused in no acute distress Eyes: anicteric sclerae, moist conjunctivae; no lid-lag; PERRLA HENT: Normocephalic, Atraumatic; normal external ears, nares open, oropharynx limited Neck: supple, tracheal midline, no JVD Lungs: Clear to auscultation bilaterally CV: RRR no murmur Abdomen: Soft, nontender Extremities: no edema, no cyanosis Skin: No rash. Psych: Mildly agitated Neuro: Alert, confused, does not follow commands - Constitutional Vitals: Vital Signs Temp Pulse Resp BP Pulse Ox 98.4 F 110 H 24 111/45 98 12/17/20 12:00 12/17/20 14:00 12/17/20 14:00 12/17/20 14:00 12/17/20 14:00 Temperature -Last 24 Hours Temperature 98.4 F Temperature 98.4 F Temperature 98.2 F Temperature 98.0 F Temperature 98.8 F Results - Labs CBC & Chem 7: 12/17/20 07:59 12/17/20 07:59 Labs: Abnormal lab results 12/16/20 12/16/20 12/16/20 Range/Units 18:51 18:59 18:59 WBC 18.2 H (4.5-11.0) K/mm3 RBC 3.60 L (3.65-5.03) M/mm3 RDW 18.0 H (13.2-15.2) % Lymph % (Auto) 4.1 L (13.4-35.0) % Lymph # (Auto) 0.8 L (1.2-5.4) K/mm3 [place] # (Auto) 1.1 H (0.0-0.8) K/mm3 Seg Neutrophils % 89.8 H (40.0-70.0) % Seg Neuts % (Manual) (40.0-70.0) % Lymphocytes % (Manual) (13.4-35.0) % Seg Neutrophils # 16.3 H (1.8-7.7) K/mm3 Seg Neutrophils # Man (1.8-7.7) K/mm3 Lymphocytes # (Manual) (1.2-5.4) K/mm3 PT (12.2-14.9) Sec. INR (0.87-1.13) D-Dimer (0-234) ng/mlDDU ABG pH (7.350-7.450) pH Units ABG pO2 (80.0-90.0) mm Hg ABG HCO3 (20.0-26.0) mmol/L ABG O2 Saturation (95.0-99.0) % ABG Base Excess (-2.0-3.0) mmol/L ABG Hemoglobin (12.0-16.0) gm/dl Oxyhemoglobin (95.0-99.0) % Sodium (137-145) mmol/L Potassium (3.6-5.0) mmol/L Chloride (98-107) mmol/L Carbon Dioxide (22-30) mmol/L BUN (7-17) mg/dL Creatinine (0.6-1.2) mg/dL Glucose (65-100) mg/dL POC Glucose 160 H (70-105) mg/dL Calcium (8.4-10.2) mg/dL Ferritin (10.0-200.0) ng/mL ALT (7-56) units/L Lactate Dehydrogenase (91-180) units/L Troponin T 0.113 H* (0.00-0.029) ng/mL C-Reactive Protein (0.00-1.30) mg/dL NT-Pro-B Natriuret Pep (0-900) pg/mL Total Protein (6.3-8.2) g/dL Albumin (3.9-5) g/dL HDL Cholesterol 24 L (40-59) mg/dL 12/16/20 12/16/20 12/16/20 Range/Units 18:59 18:59 19:29 WBC (4.5-11.0) K/mm3 RBC (3.65-5.03) M/mm3 RDW (13.2-15.2) % Lymph % (Auto) (13.4-35.0) % Lymph # (Auto) (1.2-5.4) K/mm3 [place] # (Auto) (0.0-0.8) K/mm3 Seg Neutrophils % (40.0-70.0) % Seg Neuts % (Manual) (40.0-70.0) % Lymphocytes % (Manual) (13.4-35.0) % Seg Neutrophils # (1.8-7.7) K/mm3 Seg Neutrophils # Man (1.8-7.7) K/mm3 Lymphocytes # (Manual) (1.2-5.4) K/mm3 PT (12.2-14.9) Sec. INR (0.87-1.13) D-Dimer 3183.35 H (0-234) ng/mlDDU ABG pH 7.266 L (7.350-7.450) pH Units ABG pO2 72.2 L (80.0-90.0) mm Hg ABG HCO3 12.7 L (20.0-26.0) mmol/L ABG O2 Saturation 93.4 L (95.0-99.0) % ABG Base Excess -12.9 L (-2.0-3.0) mmol/L ABG Hemoglobin 11.4 L (12.0-16.0) gm/dl Oxyhemoglobin 91.6 L (95.0-99.0) % Sodium (137-145) mmol/L Potassium 5.2 H (3.6-5.0) mmol/L Chloride (98-107) mmol/L Carbon Dioxide 13 L (22-30) mmol/L BUN 191 H (7-17) mg/dL Creatinine 5.8 H (0.6-1.2) mg/dL Glucose 187 H (65-100) mg/dL POC Glucose (70-105) mg/dL Calcium (8.4-10.2) mg/dL Ferritin (10.0-200.0) ng/mL ALT 70 H (7-56) units/L Lactate Dehydrogenase (91-180) units/L Troponin T (0.00-0.029) ng/mL C-Reactive Protein (0.00-1.30) mg/dL NT-Pro-B Natriuret Pep 1116 H (0-900) pg/mL Total Protein 5.7 L (6.3-8.2) g/dL Albumin 3.1 L (3.9-5) g/dL HDL Cholesterol (40-59) mg/dL 12/16/20 12/16/20 12/17/20 Range/Units 21:03 21:03 06:28 WBC (4.5-11.0) K/mm3 RBC (3.65-5.03) M/mm3 RDW (13.2-15.2) % Lymph % (Auto) (13.4-35.0) % Lymph # (Auto) (1.2-5.4) K/mm3 [place] # (Auto) (0.0-0.8) K/mm3 Seg Neutrophils % (40.0-70.0) % Seg Neuts % (Manual) (40.0-70.0) % Lymphocytes % (Manual) (13.4-35.0) % Seg Neutrophils # (1.8-7.7) K/mm3 Seg Neutrophils # Man (1.8-7.7) K/mm3 Lymphocytes # (Manual) (1.2-5.4) K/mm3 PT (12.2-14.9) Sec. INR (0.87-1.13) D-Dimer (0-234) ng/mlDDU ABG pH (7.350-7.450) pH Units ABG pO2 (80.0-90.0) mm Hg ABG HCO3 (20.0-26.0) mmol/L ABG O2 Saturation (95.0-99.0) % ABG Base Excess (-2.0-3.0) mmol/L ABG Hemoglobin (12.0-16.0) gm/dl Oxyhemoglobin (95.0-99.0) % Sodium (137-145) mmol/L Potassium (3.6-5.0) mmol/L Chloride (98-107) mmol/L Carbon Dioxide (22-30) mmol/L BUN (7-17) mg/dL Creatinine (0.6-1.2) mg/dL Glucose 172 H (65-100) mg/dL POC Glucose 167 H (70-105) mg/dL Calcium (8.4-10.2) mg/dL Ferritin 559.4 H (10.0-200.0) ng/mL ALT (7-56) units/L Lactate Dehydrogenase 249 H (91-180) units/L Troponin T (0.00-0.029) ng/mL C-Reactive Protein 11.30 H (0.00-1.30) mg/dL NT-Pro-B Natriuret Pep (0-900) pg/mL Total Protein (6.3-8.2) g/dL Albumin (3.9-5) g/dL HDL Cholesterol (40-59) mg/dL 12/17/20 12/17/20 12/17/20 Range/Units 07:59 07:59 07:59 WBC 15.5 H (4.5-11.0) K/mm3 RBC 3.45 L (3.65-5.03) M/mm3 RDW 17.4 H (13.2-15.2) % Lymph % (Auto) (13.4-35.0) % Lymph # (Auto) (1.2-5.4) K/mm3 [place] # (Auto) (0.0-0.8) K/mm3 Seg Neutrophils % (40.0-70.0) % Seg Neuts % (Manual) 98.0 H (40.0-70.0) % Lymphocytes % (Manual) 1.0 L (13.4-35.0) % Seg Neutrophils # (1.8-7.7) K/mm3 Seg Neutrophils # Man 15.2 H (1.8-7.7) K/mm3 Lymphocytes # (Manual) 0.2 L (1.2-5.4) K/mm3 PT 16.0 H (12.2-14.9) Sec. INR 1.30 H (0.87-1.13) D-Dimer (0-234) ng/mlDDU ABG pH (7.350-7.450) pH Units ABG pO2 (80.0-90.0) mm Hg ABG HCO3 (20.0-26.0) mmol/L ABG O2 Saturation (95.0-99.0) % ABG Base Excess (-2.0-3.0) mmol/L ABG Hemoglobin (12.0-16.0) gm/dl Oxyhemoglobin (95.0-99.0) % Sodium 147 H D (137-145) mmol/L Potassium (3.6-5.0) mmol/L Chloride 119.5 H (98-107) mmol/L Carbon Dioxide 10 L (22-30) mmol/L BUN 152 H (7-17) mg/dL Creatinine 4.2 H (0.6-1.2) mg/dL Glucose 168 H (65-100) mg/dL POC Glucose (70-105) mg/dL Calcium 7.7 L (8.4-10.2) mg/dL Ferritin (10.0-200.0) ng/mL ALT (7-56) units/L Lactate Dehydrogenase (91-180) units/L Troponin T (0.00-0.029) ng/mL C-Reactive Protein (0.00-1.30) mg/dL NT-Pro-B Natriuret Pep (0-900) pg/mL Total Protein (6.3-8.2) g/dL Albumin (3.9-5) g/dL HDL Cholesterol (40-59) mg/dL 12/17/20 12/17/20 Range/Units 10:15 11:34 WBC (4.5-11.0) K/mm3 RBC (3.65-5.03) M/mm3 RDW (13.2-15.2) % Lymph % (Auto) (13.4-35.0) % Lymph # (Auto) (1.2-5.4) K/mm3 [place] # (Auto) (0.0-0.8) K/mm3 Seg Neutrophils % (40.0-70.0) % Seg Neuts % (Manual) (40.0-70.0) % Lymphocytes % (Manual) (13.4-35.0) % Seg Neutrophils # (1.8-7.7) K/mm3 Seg Neutrophils # Man (1.8-7.7) K/mm3 Lymphocytes # (Manual) (1.2-5.4) K/mm3 PT (12.2-14.9) Sec. INR (0.87-1.13) D-Dimer (0-234) ng/mlDDU ABG pH (7.350-7.450) pH Units ABG pO2 (80.0-90.0) mm Hg ABG HCO3 (20.0-26.0) mmol/L ABG O2 Saturation (95.0-99.0) % ABG Base Excess (-2.0-3.0) mmol/L ABG Hemoglobin (12.0-16.0) gm/dl Oxyhemoglobin (95.0-99.0) % Sodium (137-145) mmol/L Potassium (3.6-5.0) mmol/L Chloride (98-107) mmol/L Carbon Dioxide (22-30) mmol/L BUN (7-17) mg/dL Creatinine (0.6-1.2) mg/dL Glucose (65-100) mg/dL POC Glucose 116 H (70-105) mg/dL Calcium (8.4-10.2) mg/dL Ferritin (10.0-200.0) ng/mL ALT (7-56) units/L Lactate Dehydrogenase (91-180) units/L Troponin T 0.070 H D (0.00-0.029) ng/mL C-Reactive Protein (0.00-1.30) mg/dL NT-Pro-B Natriuret Pep (0-900) pg/mL Total Protein (6.3-8.2) g/dL Albumin (3.9-5) g/dL HDL Cholesterol (40-59) mg/dL Assessment and Plan Cultures: Blood culture 12/16/2020 pending Assessment: 85-year-old female with known history of COPD, dementia and a recent history of COVID-19 who is resident of a intermediate, admitted on 12/17/2019 secondary to worsening shortness of breath and tachypnea: #Sepsis with initial septic shock: present on admission with leukocytosis, tachycardia, hypotension; likely secondary to pneumonia. Currently off pressors. #Right-sided pneumonia: Likely healthcare associated pneumonia versus COVID-19 pneumonia. #Recent COVID-19 infection: Noted elevated markers, CRP 11.3 #YULI: Initial creatinine 5.8. #Transaminitis: Mild, likely secondary to sepsis. Recommendations: -Continue cefepime and vancomycin renally adjusted, duration 7 days -Check MRSA PCR -Follow-up blood cultures -Monitor creatinine -Follow-up SARS-CoV-2 PCR -Aspiration precautions Will follow. Rianna Bajwa MD Infectious Diseases [facility] ([facility] M [phone] O [phone]
[2020-12-17] MEDS ORDERED: SODIUM CHLORIDE 0.9% 1000 ML 1,000 ML IV ONE (15:51)
--- NOTE | 2020-12-17 16:57 | Consultation ---
History of Present Illness Consult date: 12/17/20 Requesting physician: LUIGI DAMIAN Reason for consult: dyspnea, pneumonia History of present illness: 85-year-old female with known history of COPD, dementia who is resident of a residential presents to the emergency room for evaluation of shortness of breath and tachypnea. Patient is nonverbal most of the history was obtained from the chart. Upon arrival in the emergency room patient was found to be hypotensive with a blood pressure of 69/40. Patient was immediately placed on IV fluid with improvement of blood pressure to the low 100s systolic. She is currently off pressors but borderline MAPs and receiving IVF bolus. Not taking any PO. Active Medications Acetaminophen (Acetaminophen 325 Mg Tab) 650 mg PO Q4H PRN PRN Reason: Pain MILD(1-3)/Fever >100.5/[facility] Heparin Sodium (Porcine) (Heparin 5,000 Unit/1 Ml Vial) 5,000 unit SUB-Q Q8HR ZENIA Last Admin: 12/17/20 21:33 Dose: 5,000 unit Documented by: NORepinephrine/NS 8 MG-250 ML (Norepinephrine/Ns 8 Mg-250 Ml (Double Conc)) 8 mg in 250 mls @ 3.75 mls/hr IV TITRATE ZENIA; Protocol Last Titration: 12/17/20 09:55 Dose: 0 mcg/min, 0 mls/hr Documented by: Cefepime HCl (Cefepime/Ns 2 Gm/100 Ml) 2 gm in 100 mls @ 200 mls/hr IV Q24H ZENIA; Protocol Last Infusion: 12/17/20 10:30 Dose: Infused Documented by: Dextrose/Sodium Chloride (D5/0.45ns) 1,000 mls @ 125 mls/hr IV DIRECT ZENIA Last Admin: 12/17/20 19:00 Dose: 125 mls/hr Documented by: Magnesium Hydroxide (Magnesium Hydroxide (Mom) Oral Liqd Udc) 30 ml PO Q4H PRN PRN Reason: Constipation Ondansetron HCl (Ondansetron 4 Mg/2 Ml Inj) 4 mg IV Q8H PRN PRN Reason: Nausea And Vomiting Sodium Chloride (Sodium Chloride 0.9% 10 Ml Flush Syringe) 10 ml IV BID ZENIA Last Admin: 12/17/20 21:33 Dose: 10 ml Documented by: Sodium Chloride (Sodium Chloride 0.9% 10 Ml Flush Syringe) 10 ml IV PRN PRN PRN Reason: LINE FLUSH Past History Past Medical History: COPD, other (Dementia,COVID-19 recently) Past Surgical History: No surgical history Social history: no significant social history, other (Assisted Resident). denies: smoking, alcohol abuse, prescription drug abuse Family history: no significant family history (No pulm issues reported) Medications and Allergies Allergies Allergy/AdvReac Type Severity Reaction Status Date / Time codeine AdvReac Unknown Verified 12/16/20 19:09 diphenhydramine AdvReac Unknown Verified 12/16/20 19:09 [From Benadryl] oxycodone AdvReac Unknown Verified 12/16/20 19:09 Active Meds: Active Medications Acetaminophen (Acetaminophen 325 Mg Tab) 650 mg PO Q4H PRN PRN Reason: Pain MILD(1-3)/Fever >100.5/[place] Dexamethasone (Dexamethasone 4 Mg/Ml Vial) 6 mg IV Q24HR ZENIA Last Admin: 12/17/20 09:57 Dose: 6 mg Documented by: Heparin Sodium (Porcine) (Heparin 5,000 Unit/1 Ml Vial) 5,000 unit SUB-Q Q8HR ZENIA Last Admin: 12/17/20 13:21 Dose: 5,000 unit Documented by: NORepinephrine/NS 8 MG-250 ML (Norepinephrine/Ns 8 Mg-250 Ml (Double Conc)) 8 mg in 250 mls @ 3.75 mls/hr IV TITRATE ZENIA; Protocol Last Titration: 12/17/20 09:55 Dose: 0 mcg/min, 0 mls/hr Documented by: Cefepime HCl (Cefepime/Ns 2 Gm/100 Ml) 2 gm in 100 mls @ 200 mls/hr IV Q24H ZENIA; Protocol Last Admin: 12/17/20 09:57 Dose: 200 mls/hr Documented by: Dextrose/Sodium Chloride (D5/0.45ns) 1,000 mls @ 125 mls/hr IV DIRECT ZENIA Magnesium Hydroxide (Magnesium Hydroxide (Mom) Oral Liqd Udc) 30 ml PO Q4H PRN PRN Reason: Constipation Ondansetron HCl (Ondansetron 4 Mg/2 Ml Inj) 4 mg IV Q8H PRN PRN Reason: Nausea And Vomiting Sodium Chloride (Sodium Chloride 0.9% 10 Ml Flush Syringe) 10 ml IV BID ZENIA Last Admin: 12/17/20 09:57 Dose: 10 ml Documented by: Sodium Chloride (Sodium Chloride 0.9% 10 Ml Flush Syringe) 10 ml IV PRN PRN PRN Reason: LINE FLUSH Review of Systems ROS unobtainable: due to mental status Physical Examination Vital signs: Vital Signs Pulse Resp 125 H 45 H 12/16/20 18:48 12/16/20 18:48 Vital Signs - 24 hr 12/16/20 12/16/20 12/16/20 22:51 22:55 23:00 Temperature Pulse Rate 124 H 124 H 118 H Pulse Rate [ From Monitor] Respiratory 36 H 25 H 33 H Rate Blood Pressure 80/26 80/26 79/25 O2 Sat by Pulse 97 95 96 Oximetry 12/16/20 12/16/20 12/16/20 23:05 23:11 23:15 Temperature Pulse Rate 115 H 118 H 116 H Pulse Rate [ From Monitor] Respiratory 22 33 H 24 Rate Blood Pressure 79/25 79/25 79/25 O2 Sat by Pulse 96 95 96 Oximetry 12/16/20 12/16/20 12/16/20 23:21 23:25 23:31 Temperature Pulse Rate 118 H 116 H 117 H Pulse Rate [ From Monitor] Respiratory 43 H 31 H 23 Rate Blood Pressure 79/25 79/25 84/48 O2 Sat by Pulse 96 97 96 Oximetry 12/16/20 12/16/20 12/16/20 23:35 23:41 23:45 Temperature Pulse Rate 117 H 121 H 120 H Pulse Rate [ From Monitor] Respiratory 21 41 H 26 H Rate Blood Pressure 84/48 84/48 84/48 O2 Sat by Pulse 96 95 96 Oximetry 12/16/20 12/16/20 12/17/20 23:51 23:55 00:01 Temperature Pulse Rate 121 H 121 H 122 H Pulse Rate [ From Monitor] Respiratory 28 H 55 H 29 H Rate Blood Pressure 72/42 72/42 72/42 O2 Sat by Pulse 96 96 96 Oximetry 12/17/20 12/17/20 12/17/20 00:05 00:11 00:15 Temperature Pulse Rate 122 H 122 H 122 H Pulse Rate [ From Monitor] Respiratory 30 H 29 H 25 H Rate Blood Pressure 78/28 58/37 84/48 O2 Sat by Pulse 96 96 96 Oximetry 12/17/20 12/17/20 12/17/20 00:21 00:25 00:31 Temperature Pulse Rate 121 H 117 H 114 H Pulse Rate [ From Monitor] Respiratory 27 H 18 27 H Rate Blood Pressure 84/48 84/48 96/38 O2 Sat by Pulse 96 95 97 Oximetry 12/17/20 12/17/20 12/17/20 00:35 00:41 00:51 Temperature Pulse Rate 116 H 116 H 114 H Pulse Rate [ From Monitor] Respiratory 60 H 30 H 42 H Rate Blood Pressure 96/38 96/38 92/48 O2 Sat by Pulse 97 96 98 Oximetry 12/17/20 12/17/20 12/17/20 01:01 01:10 01:55 Temperature 98.0 F Pulse Rate 112 H 114 H Pulse Rate [ From Monitor] Respiratory 27 H 62 H Rate Blood Pressure 84/34 84/34 O2 Sat by Pulse 98 97 Oximetry 12/17/20 12/17/20 12/17/20 01:57 03:00 03:11 Temperature Pulse Rate 73 92 H Pulse Rate [ 119 H From Monitor] Respiratory 12 24 Rate Blood Pressure 84/34 84/34 O2 Sat by Pulse 95 95 99 Oximetry 12/17/20 12/17/20 12/17/20 03:21 03:30 03:41 Temperature Pulse Rate 84 115 H 115 H Pulse Rate [ From Monitor] Respiratory 27 H 32 H 13 Rate Blood Pressure 84/34 120/45 120/45 O2 Sat by Pulse 100 95 96 Oximetry 12/17/20 12/17/20 12/17/20 03:51 04:00 04:11 Temperature Pulse Rate 114 H 110 H 119 H Pulse Rate [ From Monitor] Respiratory 19 22 29 H Rate Blood Pressure 120/45 135/48 135/48 O2 Sat by Pulse 96 96 95 Oximetry 12/17/20 12/17/20 12/17/20 04:21 04:30 04:41 Temperature Pulse Rate 112 H 113 H 122 H Pulse Rate [ From Monitor] Respiratory 28 H 23 27 H Rate Blood Pressure 135/48 131/51 131/51 O2 Sat by Pulse 97 98 97 Oximetry 12/17/20 12/17/20 12/17/20 04:51 05:00 05:06 Temperature 98.2 F Pulse Rate 117 H 127 H Pulse Rate [ From Monitor] Respiratory 25 H 18 Rate Blood Pressure 131/51 136/58 O2 Sat by Pulse 99 99 Oximetry 12/17/20 12/17/20 12/17/20 05:11 05:21 05:31 Temperature Pulse Rate 124 H 129 H 121 H Pulse Rate [ From Monitor] Respiratory 25 H 22 27 H Rate Blood Pressure 136/58 136/58 130/54 O2 Sat by Pulse 90 90 98 Oximetry 12/17/20 12/17/20 12/17/20 05:41 05:51 06:00 Temperature Pulse Rate 123 H 123 H 112 H Pulse Rate [ From Monitor] Respiratory 27 H 33 H 28 H Rate Blood Pressure 130/54 130/54 128/58 O2 Sat by Pulse 99 99 99 Oximetry 12/17/20 12/17/20 12/17/20 06:11 06:21 06:30 Temperature Pulse Rate 115 H 116 H 117 H Pulse Rate [ From Monitor] Respiratory 30 H 30 H 23 Rate Blood Pressure 128/58 128/58 129/59 O2 Sat by Pulse 98 99 98 Oximetry 12/17/20 12/17/20 12/17/20 06:41 06:50 07:00 Temperature Pulse Rate 117 H 112 H 112 H Pulse Rate [ From Monitor] Respiratory 26 H 28 H 29 H Rate Blood Pressure 129/59 136/58 125/49 O2 Sat by Pulse 96 99 96 Oximetry 12/17/20 12/17/20 12/17/20 07:11 07:21 07:30 Temperature Pulse Rate 118 H 117 H 112 H Pulse Rate [ From Monitor] Respiratory 29 H 25 H 27 H Rate Blood Pressure 125/49 125/49 122/56 O2 Sat by Pulse 98 97 98 Oximetry 12/17/20 12/17/20 12/17/20 07:41 07:51 08:00 Temperature Pulse Rate 114 H 108 H 115 H Pulse Rate [ 120 H From Monitor] Respiratory 27 H 28 H 20 Rate Blood Pressure 122/56 122/56 O2 Sat by Pulse 99 98 96 Oximetry 12/17/20 12/17/20 12/17/20 08:01 08:11 08:21 Temperature Pulse Rate 120 H 105 H 111 H Pulse Rate [ From Monitor] Respiratory 20 26 H 26 H Rate Blood Pressure 132/50 132/50 132/50 O2 Sat by Pulse 96 98 98 Oximetry 12/17/20 12/17/20 12/17/20 08:30 08:41 08:42 Temperature 98.4 F Pulse Rate 111 H 109 H Pulse Rate [ From Monitor] Respiratory 26 H 25 H Rate Blood Pressure 120/48 120/48 O2 Sat by Pulse 96 98 Oximetry 12/17/20 12/17/20 12/17/20 08:51 09:00 09:11 Temperature Pulse Rate 105 H 118 H 122 H Pulse Rate [ From Monitor] Respiratory 27 H 27 H 14 Rate Blood Pressure 120/48 130/50 130/50 O2 Sat by Pulse 97 97 97 Oximetry 12/17/20 12/17/20 12/17/20 09:21 09:30 09:41 Temperature Pulse Rate 112 H 111 H 112 H Pulse Rate [ From Monitor] Respiratory 28 H 19 24 Rate Blood Pressure 109/43 104/38 104/38 O2 Sat by Pulse 97 95 96 Oximetry 12/17/20 12/17/20 12/17/20 09:51 10:00 10:01 Temperature Pulse Rate 106 H 113 H Pulse Rate [ From Monitor] Respiratory 24 21 Rate Blood Pressure 106/48 99/57 O2 Sat by Pulse 97 96 96 Oximetry 12/17/20 12/17/20 12/17/20 10:11 10:21 10:30 Temperature Pulse Rate 118 H 102 H 107 H Pulse Rate [ From Monitor] Respiratory 14 24 46 H Rate Blood Pressure 99/57 100/52 112/43 O2 Sat by Pulse 96 96 96 Oximetry 12/17/20 12/17/20 12/17/20 10:41 10:51 11:00 Temperature Pulse Rate 117 H 113 H 115 H Pulse Rate [ From Monitor] Respiratory 27 H 35 H 38 H Rate Blood Pressure 112/43 112/60 117/51 O2 Sat by Pulse 97 96 95 Oximetry 12/17/20 12/17/20 12/17/20 11:11 11:21 11:30 Temperature Pulse Rate 117 H 115 H 122 H Pulse Rate [ From Monitor] Respiratory 26 H 21 21 Rate Blood Pressure 117/51 115/48 122/53 O2 Sat by Pulse 96 97 95 Oximetry 12/17/20 12/17/20 12/17/20 11:41 11:51 12:00 Temperature 98.4 F Pulse Rate 114 H 116 H 111 H Pulse Rate [ 111 H From Monitor] Respiratory 24 24 26 H Rate Blood Pressure 122/53 119/46 120/51 O2 Sat by Pulse 96 97 95 Oximetry 12/17/20 12/17/20 12/17/20 12:11 12:21 12:30 Temperature Pulse Rate 117 H 117 H 118 H Pulse Rate [ From Monitor] Respiratory 21 23 25 H Rate Blood Pressure 120/51 118/54 113/52 O2 Sat by Pulse 97 97 95 Oximetry 12/17/20 12/17/20 12/17/20 12:41 12:51 13:00 Temperature Pulse Rate 110 H 114 H 113 H Pulse Rate [ From Monitor] Respiratory 26 H 18 24 Rate Blood Pressure 113/52 103/47 104/53 O2 Sat by Pulse 97 97 96 Oximetry 12/17/20 12/17/20 12/17/20 13:11 13:21 13:30 Temperature Pulse Rate 111 H 115 H 110 H Pulse Rate [ From Monitor] Respiratory 26 H 26 H 25 H Rate Blood Pressure 104/53 120/54 118/40 O2 Sat by Pulse 97 97 97 Oximetry 12/17/20 12/17/20 12/17/20 13:41 13:51 14:00 Temperature Pulse Rate 114 H 111 H 110 H Pulse Rate [ From Monitor] Respiratory 29 H 21 24 Rate Blood Pressure 118/40 120/36 111/45 O2 Sat by Pulse 97 98 98 Oximetry 12/17/20 12/17/20 12/17/20 14:11 14:21 14:30 Temperature Pulse Rate 111 H 111 H 116 H Pulse Rate [ From Monitor] Respiratory 25 H 24 26 H Rate Blood Pressure 111/45 115/49 114/46 O2 Sat by Pulse 98 97 97 Oximetry 12/17/20 12/17/20 12/17/20 14:41 14:50 15:00 Temperature Pulse Rate 112 H 113 H 113 H Pulse Rate [ From Monitor] Respiratory 20 23 26 H Rate Blood Pressure 115/49 114/40 117/39 O2 Sat by Pulse 98 98 97 Oximetry 12/17/20 12/17/20 12/17/20 15:11 15:21 15:30 Temperature Pulse Rate 117 H 127 H 120 H Pulse Rate [ From Monitor] Respiratory 24 17 36 H Rate Blood Pressure 114/40 106/39 102/38 O2 Sat by Pulse 97 98 96 Oximetry 12/17/20 12/17/20 12/17/20 15:40 15:51 16:00 Temperature 98.2 F Pulse Rate 124 H 109 H 113 H Pulse Rate [ 113 H From Monitor] Respiratory 21 22 21 Rate Blood Pressure 105/45 104/46 105/45 O2 Sat by Pulse 97 98 97 Oximetry 12/17/20 12/17/20 12/17/20 16:11 16:21 16:31 Temperature Pulse Rate 111 H 115 H 116 H Pulse Rate [ From Monitor] Respiratory 23 21 24 Rate Blood Pressure 105/45 121/39 116/41 O2 Sat by Pulse 99 98 98 Oximetry 12/17/20 12/17/20 12/17/20 16:41 16:51 17:00 Temperature Pulse Rate 121 H 119 H 114 H Pulse Rate [ From Monitor] Respiratory 19 39 H 28 H Rate Blood Pressure 116/41 123/54 120/54 O2 Sat by Pulse 98 99 98 Oximetry 12/17/20 12/17/20 12/17/20 17:11 17:21 17:30 Temperature Pulse Rate 115 H 117 H 120 H Pulse Rate [ From Monitor] Respiratory 25 H 19 19 Rate Blood Pressure 120/54 122/62 125/54 O2 Sat by Pulse 98 98 98 Oximetry 12/17/20 12/17/20 12/17/20 17:41 17:51 18:00 Temperature Pulse Rate 114 H 120 H 111 H Pulse Rate [ From Monitor] Respiratory 26 H 25 H 26 H Rate Blood Pressure 125/54 125/46 114/53 O2 Sat by Pulse 98 97 98 Oximetry 12/17/20 12/17/20 12/17/20 18:11 18:21 18:30 Temperature Pulse Rate 117 H 127 H 124 H Pulse Rate [ From Monitor] Respiratory 22 17 37 H Rate Blood Pressure 114/53 125/54 124/40 O2 Sat by Pulse 97 98 96 Oximetry 12/17/20 12/17/20 12/17/20 18:41 18:51 19:00 Temperature Pulse Rate 127 H 126 H 134 H Pulse Rate [ From Monitor] Respiratory 22 19 20 Rate Blood Pressure 124/40 131/46 123/54 O2 Sat by Pulse 93 94 96 Oximetry 12/17/20 12/17/20 20:00 20:34 Temperature 99.2 F Pulse Rate Pulse Rate [ From Monitor] Respiratory Rate Blood Pressure O2 Sat by Pulse 99 Oximetry General appearance: other (critically ill, awake, non-verbal) Eyes: non-icteric ENT: oropharynx dry Neck: supple Effort: other (tachypneic) Ascultation: Bilateral: clear Cardiovascular: other (RR, tachy, no mrg) Gastrointestinal: normoactive bowel sounds, soft, non-tender, non-distended Extremities: no cyanosis, no edema, pink and warm unable to assess other (unable to assess) Results - Laboratory Findings CBC and BMP: 12/17/20 07:59 12/17/20 07:59 ABG ABG pH 7.266 pH Units (7.350-7.450) L 12/16/20 19:29 ABG pCO2 28.5 mm Hg 12/16/20 19:29 ABG pO2 72.2 mm Hg (80.0-90.0) L 12/16/20 19:29 ABG O2 Saturation 93.4 % (95.0-99.0) L 12/16/20 19:29 PT/INR, D-dimer PT 16.0 Sec. (12.2-14.9) H 12/17/20 07:59 INR 1.30 (0.87-1.13) H 12/17/20 07:59 D-Dimer 3183.35 ng/mlDDU (0-234) H 12/16/20 18:59 Abnormal lab findings: Abnormal Labs 12/16/20 12/16/20 12/16/20 18:51 18:59 18:59 WBC 18.2 H RBC 3.60 L RDW 18.0 H Lymph % (Auto) 4.1 L Lymph # (Auto) 0.8 L [place] # (Auto) 1.1 H Seg Neutrophils % 89.8 H Seg Neuts % (Manual) Lymphocytes % (Manual) Seg Neutrophils # 16.3 H Seg Neutrophils # Man Lymphocytes # (Manual) PT INR D-Dimer ABG pH ABG pO2 ABG HCO3 ABG O2 Saturation ABG Base Excess ABG Hemoglobin Oxyhemoglobin Sodium Potassium Chloride Carbon Dioxide BUN Creatinine Glucose POC Glucose 160 H Calcium Ferritin ALT Lactate Dehydrogenase Troponin T 0.113 H* C-Reactive Protein NT-Pro-B Natriuret Pep Total Protein Albumin HDL Cholesterol 24 L 12/16/20 12/16/20 12/16/20 18:59 18:59 19:29 WBC RBC RDW Lymph % (Auto) Lymph # (Auto) [place] # (Auto) Seg Neutrophils % Seg Neuts % (Manual) Lymphocytes % (Manual) Seg Neutrophils # Seg Neutrophils # Man Lymphocytes # (Manual) PT INR D-Dimer 3183.35 H ABG pH 7.266 L ABG pO2 72.2 L ABG HCO3 12.7 L ABG O2 Saturation 93.4 L ABG Base Excess -12.9 L ABG Hemoglobin 11.4 L Oxyhemoglobin 91.6 L Sodium Potassium 5.2 H Chloride Carbon Dioxide 13 L BUN 191 H Creatinine 5.8 H Glucose 187 H POC Glucose Calcium Ferritin ALT 70 H Lactate Dehydrogenase Troponin T C-Reactive Protein NT-Pro-B Natriuret Pep 1116 H Total Protein 5.7 L Albumin 3.1 L HDL Cholesterol 12/16/20 12/16/20 12/17/20 21:03 21:03 06:28 WBC RBC RDW Lymph % (Auto) Lymph # (Auto) [place] # (Auto) Seg Neutrophils % Seg Neuts % (Manual) Lymphocytes % (Manual) Seg Neutrophils # Seg Neutrophils # Man Lymphocytes # (Manual) PT INR D-Dimer ABG pH ABG pO2 ABG HCO3 ABG O2 Saturation ABG Base Excess ABG Hemoglobin Oxyhemoglobin Sodium Potassium Chloride Carbon Dioxide BUN Creatinine Glucose 172 H POC Glucose 167 H Calcium Ferritin 559.4 H ALT Lactate Dehydrogenase 249 H Troponin T C-Reactive Protein 11.30 H NT-Pro-B Natriuret Pep Total Protein Albumin HDL Cholesterol 12/17/20 12/17/20 12/17/20 07:59 07:59 07:59 WBC 15.5 H RBC 3.45 L RDW 17.4 H Lymph % (Auto) Lymph # (Auto) [place] # (Auto) Seg Neutrophils % Seg Neuts % (Manual) 98.0 H Lymphocytes % (Manual) 1.0 L Seg Neutrophils # Seg Neutrophils # Man 15.2 H Lymphocytes # (Manual) 0.2 L PT 16.0 H INR 1.30 H D-Dimer ABG pH ABG pO2 ABG HCO3 ABG O2 Saturation ABG Base Excess ABG Hemoglobin Oxyhemoglobin Sodium 147 H D Potassium Chloride 119.5 H Carbon Dioxide 10 L BUN 152 H Creatinine 4.2 H Glucose 168 H POC Glucose Calcium 7.7 L Ferritin ALT Lactate Dehydrogenase Troponin T C-Reactive Protein NT-Pro-B Natriuret Pep Total Protein Albumin HDL Cholesterol 12/17/20 12/17/20 10:15 11:34 WBC RBC RDW Lymph % (Auto) Lymph # (Auto) [place] # (Auto) Seg Neutrophils % Seg Neuts % (Manual) Lymphocytes % (Manual) Seg Neutrophils # Seg Neutrophils # Man Lymphocytes # (Manual) PT INR D-Dimer ABG pH ABG pO2 ABG HCO3 ABG O2 Saturation ABG Base Excess ABG Hemoglobin Oxyhemoglobin Sodium Potassium Chloride Carbon Dioxide BUN Creatinine Glucose POC Glucose 116 H Calcium Ferritin ALT Lactate Dehydrogenase Troponin T 0.070 H D C-Reactive Protein NT-Pro-B Natriuret Pep Total Protein Albumin HDL Cholesterol - Diagnostic Findings Chest x-ray: report reviewed, image reviewed Assessment and Plan Imp: 1. UTI 2. RLL pneumonia, ? aspiration 3. Severe sepsis 4. Severe volume depletion 5. Hypernatremia 6. YULI 7. Metabolic encephalopathy 8. Covid-19 08/2020 at [facility] Rec: 1. Covid-19 episode was 08/2020 at [facility]; PCR negative here; d/c Decadron 2. ABX per ID; urine is turbid -> send culture 3. NPO until can be evaluated by ST 4. IVFs; Levophed prn to keep MAP > 65 5. DVT PPx 6. Prognosis guarded CCt 31 minutes
[2020-12-17 18:10] LABS: Bacteria,Urine 2+ /HPF (Negative); Bilirubin,Urine NEG (Negative); Blood,Urine MOD (Negative); Color,Urine Yellow (Yellow); Mucus,Urine 2+ /HPF; Urobilinogen,Urine < 2.0 mg/dL (<2.0)
[2020-12-17 18:19] LABS: WBC,Urine > 182.0 /HPF (0.0-6.0)
[2020-12-17] MEDS: D5W/0.45% NACL 1,000 ML IV SCH (19:00)
[2020-12-18] MEDS: D5W/0.45% NACL 1,000 ML IV SCH ×3 (03:00→17:15)
[2020-12-18 05:20] LABS: Hematocrit 27.5 % (30.3-42.9); Hemoglobin 9.2 gm/dl (10.1-14.3); Mean Corpuscular HGB Conc 33 % (30-34); Mean Corpuscular Volume 90 fl (79-97); Platelet Count 151 K/mm3 (140-440); Red Blood Count 3.06 M/mm3 (3.65-5.03); Red Cell Distribution Width 17.6 % (13.2-15.2)
[2020-12-18 05:38] LABS: Calcium 8.2 mg/dL (8.4-10.2)
[2020-12-18] MEDS: HEPARIN 5,000 UNIT/1 ML VIAL SUB-Q SCH ×3 (06:22→23:28)
--- NOTE | 2020-12-18 08:13 | Electrocardiograph Report ---
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
--- NOTE | 2020-12-18 08:59 | Progress Note ---
Assessment and Plan - Patient Problems (1) Acute hyperkalemia Current Visit: Yes Status: Acute (2) Acute renal failure Current Visit: Yes Status: Acute (3) Right lower lobe pneumonia Current Visit: Yes Status: Acute (4) Sepsis Current Visit: Yes Status: Acute Subjective Interval history: awake wants to drink. nurse swallow eval done Objective Vital Signs - 12hr 12/17/20 12/17/20 12/17/20 21:00 21:11 21:21 Temperature Pulse Rate 107 H 109 H 108 H Pulse Rate [ From Monitor] Respiratory 23 22 23 Rate Blood Pressure 112/46 112/46 104/55 O2 Sat by Pulse 98 99 99 Oximetry 12/17/20 12/17/20 12/17/20 21:30 21:41 21:51 Temperature Pulse Rate 112 H 115 H 113 H Pulse Rate [ From Monitor] Respiratory 24 26 H 42 H Rate Blood Pressure 124/59 124/59 120/48 O2 Sat by Pulse 98 99 99 Oximetry 12/17/20 12/17/20 12/17/20 22:00 22:11 22:21 Temperature Pulse Rate 115 H 105 H 104 H Pulse Rate [ From Monitor] Respiratory 26 H 22 23 Rate Blood Pressure 115/48 115/48 107/47 O2 Sat by Pulse 97 99 99 Oximetry 12/17/20 12/17/20 12/17/20 22:30 22:41 22:51 Temperature Pulse Rate 111 H 101 H 110 H Pulse Rate [ From Monitor] Respiratory 27 H 25 H 25 H Rate Blood Pressure 103/51 103/51 100/50 O2 Sat by Pulse 98 99 99 Oximetry 12/17/20 12/17/20 12/17/20 23:00 23:11 23:21 Temperature Pulse Rate 116 H 111 H 107 H Pulse Rate [ From Monitor] Respiratory 22 32 H 24 Rate Blood Pressure 103/54 103/54 92/56 O2 Sat by Pulse 97 98 99 Oximetry 12/17/20 12/17/20 12/17/20 23:30 23:39 23:41 Temperature 99.2 F Pulse Rate 114 H 104 H 108 H Pulse Rate [ From Monitor] Respiratory 22 22 23 Rate Blood Pressure 102/51 102/51 102/51 O2 Sat by Pulse 97 98 97 Oximetry 12/17/20 12/18/20 12/18/20 23:51 00:00 00:11 Temperature Pulse Rate 102 H 111 H 115 H Pulse Rate [ 111 H From Monitor] Respiratory 23 23 21 Rate Blood Pressure 111/50 107/45 107/45 O2 Sat by Pulse 97 97 95 Oximetry 12/18/20 12/18/20 12/18/20 00:21 00:31 00:41 Temperature Pulse Rate 116 H 121 H 122 H Pulse Rate [ From Monitor] Respiratory 21 21 21 Rate Blood Pressure 116/41 110/41 110/41 O2 Sat by Pulse 97 97 97 Oximetry 12/18/20 12/18/20 12/18/20 00:51 01:00 01:11 Temperature Pulse Rate 125 H 124 H 123 H Pulse Rate [ From Monitor] Respiratory 21 21 19 Rate Blood Pressure 117/42 123/41 123/41 O2 Sat by Pulse 95 97 96 Oximetry 12/18/20 12/18/20 12/18/20 01:21 01:30 01:41 Temperature Pulse Rate 123 H 121 H 126 H Pulse Rate [ From Monitor] Respiratory 18 20 19 Rate Blood Pressure 114/45 109/40 109/40 O2 Sat by Pulse 98 96 96 Oximetry 12/18/20 12/18/20 12/18/20 01:51 02:00 02:11 Temperature Pulse Rate 118 H 123 H 114 H Pulse Rate [ From Monitor] Respiratory 18 19 17 Rate Blood Pressure 112/40 111/48 111/48 O2 Sat by Pulse 99 96 96 Oximetry 12/18/20 12/18/20 12/18/20 02:21 02:31 02:41 Temperature Pulse Rate 121 H 121 H 121 H Pulse Rate [ From Monitor] Respiratory 16 18 18 Rate Blood Pressure 122/51 97/36 97/36 O2 Sat by Pulse 99 98 97 Oximetry 12/18/20 12/18/20 12/18/20 02:51 03:00 03:11 Temperature Pulse Rate 123 H 122 H 124 H Pulse Rate [ From Monitor] Respiratory 17 17 17 Rate Blood Pressure 101/41 108/40 108/40 O2 Sat by Pulse 98 98 98 Oximetry 12/18/20 12/18/20 12/18/20 03:21 03:30 03:41 Temperature Pulse Rate 124 H 121 H 119 H Pulse Rate [ From Monitor] Respiratory 16 17 19 Rate Blood Pressure 89/41 110/36 110/36 O2 Sat by Pulse 98 98 98 Oximetry 12/18/20 12/18/20 12/18/20 03:51 04:00 04:11 Temperature 98.6 F Pulse Rate 120 H 122 H 123 H Pulse Rate [ 122 H From Monitor] Respiratory 16 16 19 Rate Blood Pressure 98/41 101/45 108/39 O2 Sat by Pulse 98 98 98 Oximetry 12/18/20 12/18/20 12/18/20 04:21 04:30 04:41 Temperature Pulse Rate 121 H 122 H 114 H Pulse Rate [ From Monitor] Respiratory 17 21 23 Rate Blood Pressure 97/38 98/51 98/51 O2 Sat by Pulse 99 99 99 Oximetry 12/18/20 12/18/20 12/18/20 04:51 05:00 05:11 Temperature Pulse Rate 106 H 118 H 107 H Pulse Rate [ From Monitor] Respiratory 22 20 20 Rate Blood Pressure 91/49 100/46 100/46 O2 Sat by Pulse 100 99 99 Oximetry 12/18/20 12/18/20 12/18/20 05:21 05:31 05:41 Temperature Pulse Rate 114 H 116 H 113 H Pulse Rate [ From Monitor] Respiratory 20 18 22 Rate Blood Pressure 108/45 106/34 106/34 O2 Sat by Pulse 98 96 97 Oximetry 12/18/20 12/18/20 12/18/20 05:51 06:00 06:11 Temperature Pulse Rate 117 H 111 H 118 H Pulse Rate [ From Monitor] Respiratory 18 20 20 Rate Blood Pressure 107/41 102/49 102/49 O2 Sat by Pulse 98 98 97 Oximetry 12/18/20 12/18/20 12/18/20 06:21 06:31 06:41 Temperature Pulse Rate 120 H 107 H 114 H Pulse Rate [ From Monitor] Respiratory 16 19 17 Rate Blood Pressure 83/45 92/35 92/35 O2 Sat by Pulse 98 98 99 Oximetry 12/18/20 12/18/20 12/18/20 06:51 07:00 07:11 Temperature Pulse Rate 111 H 115 H 103 H Pulse Rate [ From Monitor] Respiratory 21 23 39 H Rate Blood Pressure 112/38 113/54 113/54 O2 Sat by Pulse 98 99 99 Oximetry 12/18/20 12/18/20 12/18/20 07:21 07:30 07:41 Temperature Pulse Rate 106 H 113 H 109 H Pulse Rate [ From Monitor] Respiratory 19 21 18 Rate Blood Pressure 111/50 110/48 110/48 O2 Sat by Pulse 99 98 98 Oximetry 12/18/20 12/18/20 12/18/20 07:45 07:51 08:00 Temperature Pulse Rate 115 H 114 H Pulse Rate [ From Monitor] Respiratory 21 19 Rate Blood Pressure 107/42 97/40 O2 Sat by Pulse 98 98 97 Oximetry 12/18/20 12/18/20 12/18/20 08:11 08:21 08:30 Temperature Pulse Rate 106 H 110 H 114 H Pulse Rate [ From Monitor] Respiratory 21 18 17 Rate Blood Pressure 97/40 102/42 121/53 O2 Sat by Pulse 99 99 98 Oximetry 12/18/20 12/18/20 08:41 08:51 Temperature Pulse Rate 107 H 114 H Pulse Rate [ From Monitor] Respiratory 15 17 Rate Blood Pressure 121/53 127/55 O2 Sat by Pulse 99 98 Oximetry Constitutional: other (awke, intermittently agitated) Eyes: non-icteric ENT: oropharynx dry Neck: supple Effort: other (tachypneic) Ascultation: Bilateral: clear Cardiovascular: other (RR, tachy, no mrg) Gastrointestinal: normoactive bowel sounds, soft, non-tender, non-distended Extremities: no cyanosis, no edema, pink and warm Neurologic: unable to assess Psychiatric: other (unable to assess) CBC and BMP: 12/18/20 05:01 12/18/20 05:01 ABG, PT/INR, D-dimer: ABG ABG pH 7.266 pH Units (7.350-7.450) L 12/16/20 19:29 ABG pCO2 28.5 mm Hg 12/16/20 19:29 ABG pO2 72.2 mm Hg (80.0-90.0) L 12/16/20 19:29 ABG O2 Saturation 93.4 % (95.0-99.0) L 12/16/20 19:29 PT/INR, D-dimer PT 16.0 Sec. (12.2-14.9) H 12/17/20 07:59 INR 1.30 (0.87-1.13) H 12/17/20 07:59 D-Dimer 3183.35 ng/mlDDU (0-234) H 12/16/20 18:59 Abnormal lab findings: Abnormal Labs 12/16/20 12/16/20 12/16/20 16:51 18:51 18:59 WBC 18.2 H RBC 3.60 L Hgb Hct RDW 18.0 H Lymph % (Auto) 4.1 L Lymph # (Auto) 0.[address] # (Auto) 1.1 H Seg Neutrophils % 89.8 H Seg Neuts % (Manual) Lymphocytes % (Manual) Seg Neutrophils # 16.3 H Seg Neutrophils # Man Lymphocytes # (Manual) PT INR D-Dimer ABG pH ABG pO2 ABG HCO3 ABG O2 Saturation ABG Base Excess ABG Hemoglobin Oxyhemoglobin Sodium Potassium Chloride Carbon Dioxide BUN Creatinine Glucose POC Glucose 160 H Calcium Ferritin ALT Lactate Dehydrogenase Troponin T C-Reactive Protein NT-Pro-B Natriuret Pep Total Protein Albumin HDL Cholesterol Urine WBC (Auto) > 182.0 H 12/16/20 12/16/20 12/16/20 18:59 18:59 18:59 WBC RBC Hgb Hct RDW Lymph % (Auto) Lymph # (Auto) Lane # (Auto) Seg Neutrophils % Seg Neuts % (Manual) Lymphocytes % (Manual) Seg Neutrophils # Seg Neutrophils # Man Lymphocytes # (Manual) PT INR D-Dimer 3183.35 H ABG pH ABG pO2 ABG HCO3 ABG O2 Saturation ABG Base Excess ABG Hemoglobin Oxyhemoglobin Sodium Potassium 5.2 H Chloride Carbon Dioxide 13 L BUN 191 H Creatinine 5.8 H Glucose 187 H POC Glucose Calcium Ferritin ALT 70 H Lactate Dehydrogenase Troponin T 0.113 H* C-Reactive Protein NT-Pro-B Natriuret Pep 1116 H Total Protein 5.7 L Albumin 3.1 L HDL Cholesterol 24 L Urine WBC (Auto) 12/16/20 12/16/20 12/16/20 19:29 21:03 21:03 WBC RBC Hgb Hct RDW Lymph % (Auto) Lymph # (Auto) Lane # (Auto) Seg Neutrophils % Seg Neuts % (Manual) Lymphocytes % (Manual) Seg Neutrophils # Seg Neutrophils # Man Lymphocytes # (Manual) PT INR D-Dimer ABG pH 7.266 L ABG pO2 72.2 L ABG HCO3 12.7 L ABG O2 Saturation 93.4 L ABG Base Excess -12.9 L ABG Hemoglobin 11.4 L Oxyhemoglobin 91.6 L Sodium Potassium Chloride Carbon Dioxide BUN Creatinine Glucose 172 H POC Glucose Calcium Ferritin 559.4 H ALT Lactate Dehydrogenase 249 H Troponin T C-Reactive Protein 11.30 H NT-Pro-B Natriuret Pep Total Protein Albumin HDL Cholesterol Urine WBC (Auto) 12/17/20 12/17/20 12/17/20 06:28 07:59 07:59 WBC 15.5 H RBC 3.45 L Hgb Hct RDW 17.4 H Lymph % (Auto) Lymph # (Auto) Lane # (Auto) Seg Neutrophils % Seg Neuts % (Manual) 98.0 H Lymphocytes % (Manual) 1.0 L Seg Neutrophils # Seg Neutrophils # Man 15.2 H Lymphocytes # (Manual) 0.2 L PT 16.0 H INR 1.30 H D-Dimer ABG pH ABG pO2 ABG HCO3 ABG O2 Saturation ABG Base Excess ABG Hemoglobin Oxyhemoglobin Sodium Potassium Chloride Carbon Dioxide BUN Creatinine Glucose POC Glucose 167 H Calcium Ferritin ALT Lactate Dehydrogenase Troponin T C-Reactive Protein NT-Pro-B Natriuret Pep Total Protein Albumin HDL Cholesterol Urine WBC (Auto) 12/17/20 12/17/20 12/17/20 07:59 10:15 11:34 WBC RBC Hgb Hct RDW Lymph % (Auto) Lymph # (Auto) Lane # (Auto) Seg Neutrophils % Seg Neuts % (Manual) Lymphocytes % (Manual) Seg Neutrophils # Seg Neutrophils # Man Lymphocytes # (Manual) PT INR D-Dimer ABG pH ABG pO2 ABG HCO3 ABG O2 Saturation ABG Base Excess ABG Hemoglobin Oxyhemoglobin Sodium 147 H D Potassium Chloride 119.5 H Carbon Dioxide 10 L BUN 152 H Creatinine 4.2 H Glucose 168 H POC Glucose 116 H Calcium 7.7 L Ferritin ALT Lactate Dehydrogenase Troponin T 0.070 H D C-Reactive Protein NT-Pro-B Natriuret Pep Total Protein Albumin HDL Cholesterol Urine WBC (Auto) 12/17/20 12/17/20 12/18/20 17:43 23:22 05:01 WBC 11.9 H RBC 3.06 L Hgb 9.2 L Hct 27.5 L RDW 17.6 H Lymph % (Auto) Lymph # (Auto) Lane # (Auto) Seg Neutrophils % Seg Neuts % (Manual) Lymphocytes % (Manual) Seg Neutrophils # Seg Neutrophils # Man Lymphocytes # (Manual) PT INR D-Dimer ABG pH ABG pO2 ABG HCO3 ABG O2 Saturation ABG Base Excess ABG Hemoglobin Oxyhemoglobin Sodium Potassium Chloride Carbon Dioxide BUN Creatinine Glucose POC Glucose 123 H 136 H Calcium Ferritin ALT Lactate Dehydrogenase Troponin T C-Reactive Protein NT-Pro-B Natriuret Pep Total Protein Albumin HDL Cholesterol Urine WBC (Auto) 12/18/20 12/18/20 05:01 05:37 WBC RBC Hgb Hct RDW Lymph % (Auto) Lymph # (Auto) Lane # (Auto) Seg Neutrophils % Seg Neuts % (Manual) Lymphocytes % (Manual) Seg Neutrophils # Seg Neutrophils # Man Lymphocytes # (Manual) PT INR D-Dimer ABG pH ABG pO2 ABG HCO3 ABG O2 Saturation ABG Base Excess ABG Hemoglobin Oxyhemoglobin Sodium 147 H Potassium Chloride 121.6 H Carbon Dioxide 11 L BUN 119 H Creatinine 3.1 H Glucose 124 H POC Glucose 122 H Calcium 8.2 L Ferritin ALT Lactate Dehydrogenase Troponin T C-Reactive Protein NT-Pro-B Natriuret Pep Total Protein Albumin HDL Cholesterol Urine WBC (Auto)
[2020-12-18] MEDS: CEFEPIME/NS 2 GM/100 ML 2 GM/100 ML BAG IV SCH (10:21)
--- NOTE | 2020-12-18 11:09 | Consultation ---
History of Present Illness - Reason for Consult Consult date: 12/18/20 Reason for consult: shouting out - History of Present Psychiatric Illness Per ER Note: Patient is 85 years old female, jail. Patient with history of COPD, dementia and recent diagnosis of COVID-19. Patient brought to the emergency room for evaluation of shortness of breath and tachypnea. Patient is not communicating. Patient found to have a blood pressure of 90/42. Sepsis protocol immediately initiated and patient started on normal saline, Zosyn, albuterol, Atrovent and Solu-Medrol. The patient was seen today. A nurse is at bedside with her. The patient is shouting out appears to be from pain. She is confused. She is able to give very little insight. She answers the questions with one word. The patient denies seeing a psychiatrist or being on any psych medications. She says she has not been sleeping well when asked. The patient denies SI/HI or hallucinations. The nurse at bedside states the patient has not been sleeping, and yelling out from pain. PAST PSYCHIATRIC HISTORY Unable to assess PAST MEDICAL HISTORY: None reported Family Psychiatric History: None reported or documented SOCIAL HISTORY Unable to assess REVIEW OF SYSTEMS Unable to assess MENTAL STATUS EXAMINATION Unable to adequately assess Assessment (1) Bipolar Disorder w/Psychotic Features Current Visit: Yes Status: Acute Treatment Plan Mirtazepin 7.5mg po qhs Sitter: Defer to primary Medical: Per primary Disposition: Do not recommend acute psychiatric inpatient Will follow Case staffed with Dr. Roman Medications and Allergies Allergies Allergy/AdvReac Type Severity Reaction Status Date / Time codeine AdvReac Unknown Verified 12/16/20 19:09 diphenhydramine AdvReac Unknown Verified 12/16/20 19:09 [From Benadryl] oxycodone AdvReac Unknown Verified 12/16/20 19:09 Home Medications Medication Instructions Recorded Confirmed Last Taken Type Acetaminophen [Tylenol] 1,000 mg PO Q8HR PRN 12/17/20 12/17/20 Unknown History Carboxymethylcellulose Sodium 1 each OP QHS 12/17/20 12/17/20 Unknown History [Refresh Plus] Cholecalciferol (Vitamin D3) 250 mcg PO QAM 12/17/20 12/17/20 Unknown History [Vitamin D3] Cyanocobalamin (Vitamin B-12) 1,000 mcg IM [id number] 12/17/20 12/17/20 Unknown History [Physicians Ez Use B-12] Escitalopram Oxalate [Lexapro] 20 mg PO DAILY 12/17/20 12/17/20 Unknown History Ipratropium/Albuterol Sulfate 1 ampul IH Q6HR 12/17/20 12/17/20 Unknown History [DUONEB *Not for PRN Use*] Levothyroxine [Synthroid] 50 mcg PO DAILY 12/17/20 12/17/20 Unknown History Loperamide HCl [Anti-Diarrheal] 2 mg PO Q8HR PRN 12/17/20 12/17/20 Unknown H istory Midodrine HCl 10 mg PO TID 12/17/20 12/17/20 Unknown History Mirtazapine 7.5 mg PO QHS 12/17/20 12/17/20 Unknown History Montelukast [Singulair] 10 mg PO QPM 12/17/20 12/17/20 Unknown History Nitroglycerin [Nitrostat] 0.4 mg SL Q5M PRN 12/17/20 12/17/20 Unknown History Ropinirole HCl [rOPINIRole] 5 mg PO TID 12/17/20 12/17/20 Unknown History polyethylene glycoL 3350 [Miralax 34 gm PO BID 12/17/20 12/17/20 Unknown History 3350] prednisoLONE ACETATE 1% [Pred 1 drops OP DAILY 12/17/20 12/17/20 Unknown History Forte 1%] risperiDONE [RisperDAL] 0.5 mg PO BID 12/17/20 12/17/20 Unknown History Active Meds: Active Medications Acetaminophen (Acetaminophen 325 Mg Tab) 650 mg PO Q4H PRN PRN Reason: Pain MILD(1-3)/Fever >100.5/[place] Heparin Sodium (Porcine) (Heparin 5,000 Unit/1 Ml Vial) 5,000 unit SUB-Q Q8HR [facility] Last Admin: 12/18/20 06:22 Dose: 5,000 unit Documented by: Cefepime HCl (Cefepime/Ns 2 Gm/100 Ml) 2 gm in 100 mls @ 200 mls/hr IV Q24H ZENIA; Protocol Stop: 12/23/20 10:29 Last Admin: 12/18/20 10:21 Dose: 200 mls/hr Documented by: Dextrose/Sodium Chloride (D5/0.45ns) 1,000 mls @ 125 mls/hr IV DIRECT ZENIA Last Admin: 12/18/20 07:58 Dose: 125 mls/hr Documented by: Lorazepam (Lorazepam 0.5 Mg Tab) 0.25 mg PO Q8H PRN PRN Reason: Agitation Magnesium Hydroxide (Magnesium Hydroxide (Mom) Oral Liqd Udc) 30 ml PO Q4H PRN PRN Reason: Constipation Ondansetron HCl (Ondansetron 4 Mg/2 Ml Inj) 4 mg IV Q8H PRN PRN Reason: Nausea And Vomiting Sodium Chloride (Sodium Chloride 0.9% 10 Ml Flush Syringe) 10 ml IV BID ZENIA Last Admin: 12/18/20 10:21 Dose: 10 ml Documented by: Sodium Chloride (Sodium Chloride 0.9% 10 Ml Flush Syringe) 10 ml IV PRN PRN PRN Reason: LINE FLUSH Mental Status Exam - Vital signs Last Vital Signs Temp 98.6 F 12/18/20 04:00 Pulse 114 H 12/18/20 08:51 Resp 17 12/18/20 08:51 BP 127/55 12/18/20 08:51 Pulse Ox 98 12/18/20 08:51 Results Result Diagrams: 12/18/20 05:01 12/18/20 05:01 Abnormal lab results 12/16/20 12/17/20 12/17/20 Range/Units 16:51 06:28 07:59 WBC (4.5-11.0) K/mm3 RBC (3.65-5.03) M/mm3 Hgb (10.1-14.3) gm/dl Hct (30.3-42.9) % RDW (13.2-15.2) % Seg Neuts % (Manual) 98.0 H (40.0-70.0) % Lymphocytes % (Manual) 1.0 L (13.4-35.0) % Seg Neutrophils # Man 15.2 H (1.8-7.7) K/mm3 Lymphocytes # (Manual) 0.2 L (1.2-5.4) K/mm3 Sodium (137-145) mmol/L Chloride (98-107) mmol/L Carbon Dioxide (22-30) mmol/L BUN (7-17) mg/dL Creatinine (0.6-1.2) mg/dL Glucose (65-100) mg/dL POC Glucose 167 H (70-105) mg/dL Calcium (8.4-10.2) mg/dL Troponin T (0.00-0.029) ng/mL Urine WBC (Auto) > 182.0 H (0.0-6.0) /HPF 12/17/20 12/17/20 12/17/20 Range/Units 10:15 11:34 17:43 WBC (4.5-11.0) K/mm3 RBC (3.65-5.03) M/mm3 Hgb (10.1-14.3) gm/dl Hct (30.3-42.9) % RDW (13.2-15.2) % Seg Neuts % (Manual) (40.0-70.0) % Lymphocytes % (Manual) (13.4-35.0) % Seg Neutrophils # Man (1.8-7.7) K/mm3 Lymphocytes # (Manual) (1.2-5.4) K/mm3 Sodium (137-145) mmol/L Chloride (98-107) mmol/L Carbon Dioxide (22-30) mmol/L BUN (7-17) mg/dL Creatinine (0.6-1.2) mg/dL Glucose (65-100) mg/dL POC Glucose 116 H 123 H (70-105) mg/dL Calcium (8.4-10.2) mg/dL Troponin T 0.070 H D (0.00-0.029) ng/mL Urine WBC (Auto) (0.0-6.0) /HPF 12/17/20 12/18/20 12/18/20 Range/Units 23:22 05:01 05:01 WBC 11.9 H (4.5-11.0) K/mm3 RBC 3.06 L (3.65-5.03) M/mm3 Hgb 9.2 L (10.1-14.3) gm/dl Hct 27.5 L (30.3-42.9) % RDW 17.6 H (13.2-15.2) % Seg Neuts % (Manual) (40.0-70.0) % Lymphocytes % (Manual) (13.4-35.0) % Seg Neutrophils # Man (1.8-7.7) K/mm3 Lymphocytes # (Manual) (1.2-5.4) K/mm3 Sodium 147 H (137-145) mmol/L Chloride 121.6 H (98-107) mmol/L Carbon Dioxide 11 L (22-30) mmol/L BUN 119 H (7-17) mg/dL Creatinine 3.1 H (0.6-1.2) mg/dL Glucose 124 H (65-100) mg/dL POC Glucose 136 H (70-105) mg/dL Calcium 8.2 L (8.4-10.2) mg/dL Troponin T (0.00-0.029) ng/mL Urine WBC (Auto) (0.0-6.0) /HPF 12/18/20 Range/Units 05:37 WBC (4.5-11.0) K/mm3 RBC (3.65-5.03) M/mm3 Hgb (10.1-14.3) gm/dl Hct (30.3-42.9) % RDW (13.2-15.2) % Seg Neuts % (Manual) (40.0-70.0) % Lymphocytes % (Manual) (13.4-35.0) % Seg Neutrophils # Man (1.8-7.7) K/mm3 Lymphocytes # (Manual) (1.2-5.4) K/mm3 Sodium (137-145) mmol/L Chloride (98-107) mmol/L Carbon Dioxide (22-30) mmol/L BUN (7-17) mg/dL Creatinine (0.6-1.2) mg/dL Glucose (65-100) mg/dL POC Glucose 122 H (70-105) mg/dL Calcium (8.4-10.2) mg/dL Troponin T (0.00-0.029) ng/mL Urine WBC (Auto) (0.0-6.0) /HPF All other labs normal.
[2020-12-18] MEDS: LORazepam 0.5 MG TAB PO PRN ×2 (11:17→23:27)
--- NOTE | 2020-12-18 11:32 | Progress Note ---
Assessment and Plan - Patient Problems (1) Acute renal failure Current Visit: Yes Status: Acute Plan to address problem: Likely prerenal injury versus possible acute tubular necrosis in the setting of pneumonia and sepsis. With gentle IV fluid hydration it seems that her renal function is slowly starting to improve. We will continue with conservative management. Would adjust her IV fluids to D5 half-normal saline given her worsening hypernatremia. Otherwise would continue with current regimen at this time. We will obtain renal ultrasound for further evaluation and will also add urine electrolytes to current study. We will also add urine analysis for further evaluation. overall renal function remained stable at this time. We will continue to monitor closely. (2) Acute hyperkalemia Current Visit: Yes Status: Acute Plan to address problem: In the setting of acute kidney injury. With appropriate fluid hydration her serum potassium levels have improved at this time. We will continue to monitor. (3) Right lower lobe pneumonia Current Visit: Yes Status: Acute Plan to address problem: Infectious disease consultation appreciated. Patient is under contact precautions for possible underlying COVID-19 pneumonia. We will follow up with further recommendation this time. Please ensure that antibiotics are dosed appropriately for patient's decreased renal function at this time. (4) Suspected COVID-19 virus infection Current Visit: Yes Status: Acute Plan to address problem: she has tested negative for COVID 19 virus infection.. Subjective Date of service: 12/18/20 Interval history: no acute changes overnight. Having echo done this morning during my examination. Objective - Vital Signs Vital signs: Vital Signs - 12hr 12/17/20 12/17/20 12/17/20 23:39 23:41 23:51 Temperature 99.2 F Pulse Rate 104 H 108 H 102 H Pulse Rate [ From Monitor] Respiratory 22 23 23 Rate Blood Pressure 102/51 102/51 111/50 O2 Sat by Pulse 98 97 97 Oximetry 12/18/20 12/18/20 12/18/20 00:00 00:11 00:21 Temperature Pulse Rate 111 H 115 H 116 H Pulse Rate [ 111 H From Monitor] Respiratory Rate Blood Pressure 107/45 107/45 116/41 O2 Sat by Pulse 97 95 97 Oximetry 12/18/20 12/18/20 12/18/20 00:31 00:41 00:51 Temperature Pulse Rate 121 H 122 H 125 H Pulse Rate [ From Monitor] Respiratory 21 21 21 Rate Blood Pressure 110/41 110/41 117/42 O2 Sat by Pulse 97 97 95 Oximetry 12/18/20 12/18/20 12/18/20 01:00 01:11 01:21 Temperature Pulse Rate 124 H 123 H 123 H Pulse Rate [ From Monitor] Respiratory 21 19 18 Rate Blood Pressure 123/41 123/41 114/45 O2 Sat by Pulse 97 96 98 Oximetry 12/18/20 12/18/20 12/18/20 01:30 01:41 01:51 Temperature Pulse Rate 121 H 126 H 118 H Pulse Rate [ From Monitor] Respiratory 20 19 18 Rate Blood Pressure 109/40 109/40 112/40 O2 Sat by Pulse 96 96 99 Oximetry 12/18/20 12/18/20 12/18/20 02:00 02:11 02:21 Temperature Pulse Rate 123 H 114 H 121 H Pulse Rate [ From Monitor] Respiratory 19 17 16 Rate Blood Pressure 111/48 111/48 122/51 O2 Sat by Pulse 96 96 99 Oximetry 12/18/20 12/18/20 12/18/20 02:31 02:41 02:51 Temperature Pulse Rate 121 H 121 H 123 H Pulse Rate [ From Monitor] Respiratory 18 18 17 Rate Blood Pressure 97/36 97/36 101/41 O2 Sat by Pulse 98 97 98 Oximetry 12/18/20 12/18/20 12/18/20 03:00 03:11 03:21 Temperature Pulse Rate 122 H 124 H 124 H Pulse Rate [ From Monitor] Respiratory 17 17 16 Rate Blood Pressure 108/40 108/40 89/41 O2 Sat by Pulse 98 98 98 Oximetry 12/18/20 12/18/20 12/18/20 03:30 03:41 03:51 Temperature Pulse Rate 121 H 119 H 120 H Pulse Rate [ From Monitor] Respiratory 17 19 16 Rate Blood Pressure 110/36 110/36 98/41 O2 Sat by Pulse 98 98 98 Oximetry 12/18/20 12/18/20 12/18/20 04:00 04:11 04:21 Temperature 98.6 F Pulse Rate 122 H 123 H 121 H Pulse Rate [ 122 H From Monitor] Respiratory 16 19 17 Rate Blood Pressure 101/45 108/39 97/38 O2 Sat by Pulse 98 98 99 Oximetry 12/18/20 12/18/20 12/18/20 04:30 04:41 04:51 Temperature Pulse Rate 122 H 114 H 106 H Pulse Rate [ From Monitor] Respiratory 21 23 22 Rate Blood Pressure 98/51 98/51 91/49 O2 Sat by Pulse 99 99 100 Oximetry 12/18/20 12/18/20 12/18/20 05:00 05:11 05:21 Temperature Pulse Rate 118 H 107 H 114 H Pulse Rate [ From Monitor] Respiratory 20 20 20 Rate Blood Pressure 100/46 100/46 108/45 O2 Sat by Pulse 99 99 98 Oximetry 12/18/20 12/18/20 12/18/20 05:31 05:41 05:51 Temperature Pulse Rate 116 H 113 H 117 H Pulse Rate [ From Monitor] Respiratory 18 22 18 Rate Blood Pressure 106/34 106/34 107/41 O2 Sat by Pulse 96 97 98 Oximetry 12/18/20 12/18/20 12/18/20 06:00 06:11 06:21 Temperature Pulse Rate 111 H 118 H 120 H Pulse Rate [ From Monitor] Respiratory 20 20 16 Rate Blood Pressure 102/49 102/49 83/45 O2 Sat by Pulse 98 97 98 Oximetry 12/18/20 12/18/20 12/18/20 06:31 06:41 06:51 Temperature Pulse Rate 107 H 114 H 111 H Pulse Rate [ From Monitor] Respiratory 19 17 21 Rate Blood Pressure 92/35 92/35 112/38 O2 Sat by Pulse 98 99 98 Oximetry 12/18/20 12/18/20 12/18/20 07:00 07:11 07:21 Temperature Pulse Rate 115 H 103 H 106 H Pulse Rate [ From Monitor] Respiratory 23 39 H 19 Rate Blood Pressure 113/54 113/54 111/50 O2 Sat by Pulse 99 99 99 Oximetry 12/18/20 12/18/20 12/18/20 07:30 07:41 07:45 Temperature Pulse Rate 113 H 109 H Pulse Rate [ From Monitor] Respiratory 21 18 Rate Blood Pressure 110/48 110/48 O2 Sat by Pulse 98 98 98 Oximetry 12/18/20 12/18/20 12/18/20 07:51 08:00 08:11 Temperature Pulse Rate 115 H 114 H 106 H Pulse Rate [ From Monitor] Respiratory 21 19 21 Rate Blood Pressure 107/42 97/40 97/40 O2 Sat by Pulse 98 97 99 Oximetry 12/18/20 12/18/20 12/18/20 08:21 08:30 08:41 Temperature Pulse Rate 110 H 114 H 107 H Pulse Rate [ From Monitor] Respiratory 18 17 15 Rate Blood Pressure 102/42 121/53 121/53 O2 Sat by Pulse 99 98 99 Oximetry 12/18/20 08:51 Temperature Pulse Rate 114 H Pulse Rate [ From Monitor] Respiratory 17 Rate Blood Pressure 127/55 O2 Sat by Pulse 98 Oximetry - General Appearance General appearance: appears stated age, chronically ill EENT: ATNC Neck: no JVD Respiratory: Present: Clear to Ascultation Cardiology: regular Gastrointestinal: normal Neurologic: confused, disoriented Musculoskeletal: deferred Psychiatric: agitated - Lab 12/18/20 05:01 12/18/20 05:01 Most recent lab results ABG pH 7.266 pH Units (7.350-7.450) L 12/16/20 19:29 ABG pCO2 28.5 mm Hg 12/16/20 19:29 ABG pO2 72.2 mm Hg (80.0-90.0) L 12/16/20 19:29 ABG HCO3 12.7 mmol/L (20.0-26.0) L 12/16/20 19:29 ABG O2 Saturation 93.4 % (95.0-99.0) L 12/16/20 19:29 Calcium 8.2 mg/dL (8.4-10.2) L 12/18/20 05:01 - Allied health notes Allied health notes reviewed: nursing Medications & Allergies - Medications Allergies/Adverse Reactions: Allergies codeine Adverse Reaction (Verified 12/16/20 19:09) Unknown diphenhydramine [From Benadryl] Adverse Reaction (Verified 12/16/20 19:09) Unknown oxycodone Adverse Reaction (Verified 12/16/20 19:09) Unknown Home Medications: Home Medications Medication Instructions Recorded Confirmed Last Taken Type Acetaminophen [Tylenol] 1,000 mg PO Q8HR PRN 12/17/20 12/17/20 Unknown History Carboxymethylcellulose Sodium 1 each OP QHS 12/17/20 12/17/20 Unknown History [Refresh Plus] Cholecalciferol (Vitamin D3) 250 mcg PO QAM 12/17/20 12/17/20 Unknown History [Vitamin D3] Cyanocobalamin (Vitamin B-12) 1,000 mcg IM [id number] 12/17/20 12/17/20 Unknown History [Physicians Ez Use B-12] Escitalopram Oxalate [Lexapro] 20 mg PO DAILY 12/17/20 12/17/20 Unknown History Ipratropium/Albuterol Sulfate 1 ampul IH Q6HR 12/17/20 12/17/20 Unknown History [DUONEB *Not for PRN Use*] Levothyroxine [Synthroid] 50 mcg PO DAILY 12/17/20 12/17/20 Unknown History Loperamide HCl [Anti-Diarrheal] 2 mg PO Q8HR PRN 12/17/20 12/17/20 Unknown History Midodrine HCl 10 mg PO TID 12/17/20 12/17/20 Unknown History Mirtazapine 7.5 mg PO QHS 12/17/20 12/17/20 Unknown History Montelukast [Singulair] 10 mg PO QPM 12/17/20 12/17/20 Unknown History Nitroglycerin [Nitrostat] 0.4 mg SL Q5M PRN 12/17/20 12/17/20 Unknown History Ropinirole HCl [rOPINIRole] 5 mg PO TID 12/17/20 12/17/20 Unknown History polyethylene glycoL 3350 [Miralax 34 gm PO BID 12/17/20 12/17/20 Unknown History 3350] prednisoLONE ACETATE 1% [Pred 1 drops OP DAILY 12/17/20 12/17/20 Unknown History Forte 1%] risperiDONE [RisperDAL] 0.5 mg PO BID 12/17/20 12/17/20 Unknown History Active Medications: Generic Name Dose Route Start Last Admin Trade Name Yaquelin PRN Reason Stop Dose Admin Acetaminophen 650 mg 12/16/20 22:02 Acetaminophen 325 Mg Tab PO Q4H PRN Pain MILD(1-3)/Fever >100.5/BUCKLEY Heparin Sodium (Porcine) 5,000 unit 12/17/20 06:00 12/18/20 06:22 Heparin 5,000 Unit/1 Ml Vial SUB-Q 5,000 unit Q8HR ZENIA Administration Cefepime HCl 2 gm in 100 mls @ 200 mls/hr 12/17/20 10:00 12/18/20 10:21 Cefepime/Ns 2 Gm/100 Ml IV 12/23/20 10:29 200 mls/hr Q24H ZENIA Administration Protocol Dextrose/Sodium Chloride 1,000 mls @ 125 mls/hr 12/17/20 14:00 12/18/20 07:58 D5/0.45ns IV 125 mls/hr DIRECT ZENIA Administration Lorazepam 0.25 mg 12/18/20 10:46 12/18/20 11:17 Lorazepam 0.5 Mg Tab PO 0.25 mg Q8H PRN Administration Agitation Magnesium Hydroxide 30 ml 12/16/20 22:02 Magnesium Hydroxide (Mom) Oral Liqd Udc PO Q4H PRN Constipation Mirtazapine 7.5 mg 12/18/20 22:00 Mirtazapine 15 Mg Tab PO QHS ZENIA Ondansetron HCl 4 mg 12/16/20 22:02 Ondansetron 4 Mg/2 Ml Inj IV Q8H PRN Nausea And Vomiting Sodium Chloride 10 ml 12/17/20 10:00 12/18/20 10:21 Sodium Chloride 0.9% 10 Ml Flush Syringe IV 10 ml BID ZENIA Administration Sodium Chloride 10 ml 12/16/20 22:02 Sodium Chloride 0.9% 10 Ml Flush Syringe IV PRN PRN LINE FLUSH
--- NOTE | 2020-12-18 12:47 | Progress Note ---
Assessment and Plan Cultures: Blood culture 12/16/2020 no growth today MRSA PCR indeterminate SARS-CoV-2 PCR negative Assessment: 85-year-old female with known history of COPD, dementia and a recent history of COVID-19 who is resident of a [facility], admitted on 12/17/2019 secondary to worsening shortness of breath and tachypnea: #Sepsis with initial septic shock: present on admission with leukocytosis, tachycardia, hypotension; likely secondary to pneumonia +/- UTI. Currently off pressors. #Right-sided pneumonia: Likely healthcare associated pneumonia versus COVID-19 pneumonia. #Recent COVID-19 infection: Noted elevated markers, CRP 11.3 #YULI: Initial creatinine 5.8. Improving #Transaminitis: Mild, likely secondary to sepsis. #UTI: Urinalysis consistent with UTI. Urine culture pending. Recommendations: -Continue cefepime and vancomycin renally adjusted, D2 of 7 -Follow-up urine cultures -Monitor creatinine -Aspiration precautions Will follow. Rianna Bajwa MD Infectious Diseases Online Affiliate Marketing Manager [facility] ([facility]) M [phone] O [phone] Subjective Date of service: 12/18/20 Principal diagnosis: Pneumonia Interval history: Patient remains agitated, alert, no fever. Objective - Exam Narrative Exam: General appearance: Alert, debilitated, confused in no acute distress Eyes: anicteric sclerae, moist conjunctivae; no lid-lag; PERRLA HENT: Normocephalic, Atraumatic; normal external ears, nares open, oropharynx limited Neck: supple, tracheal midline, no JVD Lungs: Clear to auscultation bilaterally CV: RRR no murmur Abdomen: Soft, nontender Extremities: no edema, no cyanosis Skin: No rash. Psych: Mildly agitated Neuro: Alert, confused, does not follow commands - Constitutional Vitals: Vital Signs Temp Pulse Resp BP Pulse Ox 98.6 F 108 H 17 114/52 98 12/18/20 04:00 12/18/20 12:30 12/18/20 12:30 12/18/20 12:30 12/18/20 12:30 Temperature -Last 24 Hours Temperature 98.6 F Temperature 99.4 F Temperature 99.2 F Temperature 99.2 F Temperature 98.2 F - Labs CBC & Chem 7: 12/18/20 05:01 12/18/20 05:01 Labs: Abnormal lab results 12/16/20 12/17/20 12/17/20 Range/Units 16:51 17:43 23:22 WBC (4.5-11.0) K/mm3 RBC (3.65-5.03) M/mm3 Hgb (10.1-14.3) gm/dl Hct (30.3-42.9) % RDW (13.2-15.2) % Sodium (137-145) mmol/L Chloride (98-107) mmol/L Carbon Dioxide (22-30) mmol/L BUN (7-17) mg/dL Creatinine (0.6-1.2) mg/dL Glucose (65-100) mg/dL POC Glucose 123 H 136 H (70-105) mg/dL Calcium (8.4-10.2) mg/dL Urine WBC (Auto) > 182.0 H (0.0-6.0) /HPF 12/18/20 12/18/20 12/18/20 Range/Units 05:01 05:01 05:37 WBC 11.9 H (4.5-11.0) K/mm3 RBC 3.06 L (3.65-5.03) M/mm3 Hgb 9.2 L (10.1-14.3) gm/dl Hct 27.5 L (30.3-42.9) % RDW 17.6 H (13.2-15.2) % Sodium 147 H (137-145) mmol/L Chloride 121.6 H (98-107) mmol/L Carbon Dioxide 11 L (22-30) mmol/L BUN 119 H (7-17) mg/dL Creatinine 3.1 H (0.6-1.2) mg/dL Glucose 124 H (65-100) mg/dL POC Glucose 122 H (70-105) mg/dL Calcium 8.2 L (8.4-10.2) mg/dL Urine WBC (Auto) (0.0-6.0) /HPF
--- NOTE | 2020-12-18 13:20 | Progress Note ---
Hospitalist Physical - Constitutional Vitals: Temp Pulse Resp BP Pulse Ox 98.6 F 108 H 17 114/52 98 12/18/20 04:00 12/18/20 12:30 12/18/20 12:30 12/18/20 12:30 12/18/20 12:30 General appearance: Present: no acute distress, well-nourished, other (Dry Oral Mucosa) HEART Score - HEART Score Troponin: Troponin T 0.070 ng/mL (0.00-0.029) H D 12/17/20 10:15 Results - Labs CBC & Chem 7: 12/18/20 05:01 12/18/20 05:01 Labs: Laboratory Last Values WBC 11.9 K/mm3 (4.5-11.0) H 12/18/20 05:01 RBC 3.06 M/mm3 (3.65-5.03) L 12/18/20 05:01 Hgb 9.2 gm/dl (10.1-14.3) L 12/18/20 05:01 Hct 27.5 % (30.3-42.9) L 12/18/20 05:01 MCV 90 fl (79-97) 12/18/20 05:01 MCH 30 pg (28-32) 12/18/20 05:01 MCHC 33 % (30-34) 12/18/20 05:01 RDW 17.6 % (13.2-15.2) H 12/18/20 05:01 Plt Count 151 K/mm3 (140-440) 12/18/20 05:01 Lymph % (Auto) 4.1 % (13.4-35.0) L 12/16/20 18:59 [place] % (Auto) 5.9 % (0.0-7.3) 12/16/20 18:59 Eos % (Auto) 0.0 % (0.0-4.3) 12/16/20 18:59 Baso % (Auto) 0.2 % (0.0-1.8) 12/16/20 18:59 Lymph # (Auto) 0.8 K/mm3 (1.2-5.4) L 12/16/20 18:59 [place] # (Auto) 1.1 K/mm3 (0.0-0.8) H 12/16/20 18:59 Eos # (Auto) 0.0 K/mm3 (0.0-0.4) 12/16/20 18:59 Baso # (Auto) 0.0 K/mm3 (0.0-0.1) 12/16/20 18:59 Add Manual Diff Complete 12/17/20 07:59 Total Counted 100 12/17/20 07:59 Seg Neutrophils % Sales Enablement Analyst 12/17/20 07:59 Seg Neuts % (Manual) 98.0 % (40.0-70.0) H 12/17/20 07:59 Lymphocytes % (Manual) 1.0 % (13.4-35.0) L 12/17/20 07:59 Monocytes % (Manual) 1.0 % (0.0-7.3) 12/17/20 07:59 Nucleated RBC % Not Reportable 12/17/20 07:59 Seg Neutrophils # 16.3 K/mm3 (1.8-7.7) H 12/16/20 18:59 Seg Neutrophils # Man 15.2 K/mm3 (1.8-7.7) H 12/17/20 07:59 Band Neutrophils # 0.0 K/mm3 12/17/20 07:59 Lymphocytes # (Manual) 0.2 K/mm3 (1.2-5.4) L 12/17/20 07:59 Abs React Lymphs (Man) 0.0 K/mm3 12/17/20 07:59 Monocytes # (Manual) 0.2 K/mm3 (0.0-0.8) 12/17/20 07:59 Eosinophils # (Manual) 0.0 K/mm3 (0.0-0.4) 12/17/20 07:59 Basophils # (Manual) 0.0 K/mm3 (0.0-0.1) 12/17/20 07:59 Metamyelocytes # 0.0 K/mm3 12/17/20 07:59 Myelocytes # 0.0 K/mm3 12/17/20 07:59 Promyelocytes # 0.0 K/mm3 12/17/20 07:59 Blast Cells # 0.0 K/mm3 12/17/20 07:59 WBC Morphology Not Reportable 12/17/20 07:59 Hypersegmented Neuts Not Reportable 12/17/20 07:59 Hyposegmented Neuts Not Reportable 12/17/20 07:59 Hypogranular Neuts Not Reportable 12/17/20 07:59 Smudge Cells Not Reportable 12/17/20 07:59 Toxic Granulation Not Reportable 12/17/20 07:59 Toxic Vacuolation Not Reportable 12/17/20 07:59 Dohle Bodies Not Reportable 12/17/20 07:59 Pelger-Huet Anomaly Not Reportable 12/17/20 07:59 Dave Rods Not Reportable 12/17/20 07:59 Platelet Estimate Consistent w auto 12/17/20 07:59 Clumped Platelets Not Reportable 12/17/20 07:59 Plt Clumps, EDTA Not Reportable 12/17/20 07:59 Large Platelets Not Reportable 12/17/20 07:59 Giant Platelets Not Reportable 12/17/20 07:59 Platelet Satelliting Not Reportable 12/17/20 07:59 Plt Morphology Comment Not Reportable 12/17/20 07:59 RBC Morphology Not Reportable 12/17/20 07:59 Dimorphic RBCs Not Reportable 12/17/20 07:59 Polychromasia Not Reportable 12/17/20 07:59 Hypochromasia Not Reportable 12/17/20 07:59 Poikilocytosis Not Reportable 12/17/20 07:59 Anisocytosis Not Reportable 12/17/20 07:59 Microcytosis Not Reportable 12/17/20 07:59 Macrocytosis Not Reportable 12/17/20 07:59 Spherocytes Not Reportable 12/17/20 07:59 Pappenheimer Bodies Not Reportable 12/17/20 07:59 Sickle Cells Not Reportable 12/17/20 07:59 Target Cells Not Reportable 12/17/20 07:59 Tear Drop Cells Not Reportable 12/17/20 07:59 Ovalocytes Not Reportable 12/17/20 07:59 Helmet Cells Not Reportable 12/17/20 07:59 [place] Bodies Not Reportable 12/17/20 07:59 [place] Rings Not Reportable 12/17/20 07:59 Lisa Cells Rare 12/17/20 07:59 Bite Cells Not Reportable 12/17/20 07:59 Crenated Cell Not Reportable 12/17/20 07:59 Elliptocytes Few 12/17/20 07:59 Acanthocytes (Spur) Not Reportable 12/17/20 07:59 Rouleaux Not Reportable 12/17/20 07:59 Hemoglobin C Crystals Not Reportable 12/17/20 07:59 Schistocytes Not Reportable 12/17/20 07:59 Malaria parasites Not Reportable 12/17/20 07:59 Ant Bodies Not Reportable 12/17/20 07:59 Hem Pathologist Commnt No 12/17/20 07:59 PT 16.0 Sec. (12.2-14.9) H 12/17/20 07:59 INR 1.30 (0.87-1.13) H 12/17/20 07:59 APTT 26.6 Sec. (24.2-36.6) 12/16/20 18:59 D-Dimer 3183.35 ng/mlDDU (0-234) H 12/16/20 18:59 ABG pH 7.266 pH Units (7.350-7.450) L 12/16/20 19:29 ABG pCO2 28.5 mm Hg 12/16/20 19:29 ABG pO2 72.2 mm Hg (80.0-90.0) L 12/16/20 19:29 ABG HCO3 12.7 mmol/L (20.0-26.0) L 12/16/20 19:29 ABG O2 Saturation 93.4 % (95.0-99.0) L 12/16/20 19:29 ABG O2 Content 14.7 (0.0-44) 12/16/20 19:29 ABG Base Excess -12.9 mmol/L (-2.0-3.0) L 12/16/20 19:29 ABG Hemoglobin 11.4 gm/dl (12.0-16.0) L 12/16/20 19:29 ABG Carboxyhemoglobin 1.4 % (0.0-5.0) 12/16/20 19:29 ABG Methemoglobin 0.5 % (0.0-1.5) 12/16/20 19:29 Oxyhemoglobin 91.6 % (95.0-99.0) L 12/16/20 19:29 FiO2 32 % 12/16/20 19:29 Sodium 147 mmol/L (137-145) H 12/18/20 05:01 Potassium 4.4 mmol/L (3.6-5.0) 12/18/20 05:01 Chloride 121.6 mmol/L (98-107) H 12/18/20 05:01 Carbon Dioxide 11 mmol/L (22-30) L 12/18/20 05:01 Anion Gap 19 mmol/L 12/18/20 05:01 BUN 119 mg/dL (7-17) H 12/18/20 05:01 Creatinine 3.1 mg/dL (0.6-1.2) H 12/18/20 05:01 Estimated GFR 14 ml/min 12/18/20 05:01 BUN/Creatinine Ratio 38 % 12/18/20 05:01 Glucose 124 mg/dL (65-100) H 12/18/20 05:01 POC Glucose 102 mg/dL (70-105) 12/18/20 11:26 Lactic Acid 1.90 mmol/L (0.7-2.0) 12/16/20 22:10 Calcium 8.2 mg/dL (8.4-10.2) L 12/18/20 05:01 Ferritin 559.4 ng/mL (10.0-200.0) H 12/16/20 21:03 Total Bilirubin 0.30 mg/dL (0.1-1.2) 12/16/20 18:59 Direct Bilirubin < 0.2 mg/dL (0-0.2) 12/16/20 18:59 Indirect Bilirubin 0.1 mg/dL 12/16/20 18:59 AST 21 units/L (5-40) 12/16/20 18:59 ALT 70 units/L (7-56) H 12/16/20 18:59 Alkaline Phosphatase 94 units/L (35-129) 12/16/20 18:59 Lactate Dehydrogenase 249 units/L (91-180) H 12/16/20 21:03 Troponin T 0.070 ng/mL (0.00-0.029) H D 12/17/20 10:15 C-Reactive Protein 11.30 mg/dL (0.00-1.30) H 12/16/20 21:03 NT-Pro-B Natriuret Pep 1116 pg/mL (0-900) H 12/16/20 18:59 Total Protein 5.7 g/dL (6.3-8.2) L 12/16/20 18:59 Albumin 3.1 g/dL (3.9-5) L 12/16/20 18:59 Albumin/Globulin Ratio 1.2 % 12/16/20 18:59 Triglycerides 104 mg/dL (2-149) 12/16/20 18:59 Cholesterol 99 mg/dL (50-199) 12/16/20 18:59 LDL Cholesterol Direct 59 mg/dL (50-130) 12/16/20 18:59 HDL Cholesterol 24 mg/dL (40-59) L 12/16/20 18:59 Cholesterol/HDL Ratio 4.12 % 12/16/20 18:59 Procalcitonin 0.99 ng/mL (<0.15) 12/16/20 21:03 Urine Color Yellow (Yellow) 12/16/20 16:51 Urine Turbidity Turbid (Clear) 12/16/20 16:51 Urine pH 5.0 (5.0-7.0) 12/16/20 16:51 Ur Specific Fisher 1.010 (1.003-1.030) 12/16/20 16:51 Urine Protein 30 mg/dl mg/dL (Negative) 12/16/20 16:51 Urine Glucose (UA) Neg mg/dL (Negative) 12/16/20 16:51 Urine Ketones Neg mg/dL (Negative) 12/16/20 16:51 Urine Blood Mod (Negative) 12/16/20 16:51 Urine Nitrite Neg (Negative) 12/16/20 16:51 Urine Bilirubin Neg (Negative) 12/16/20 16:51 Urine Urobilinogen < 2.0 mg/dL (<2.0) 12/16/20 16:51 Ur Leukocyte Esterase Lg (Negative) 12/16/20 16:51 Urine WBC (Auto) > 182.0 /HPF (0.0-6.0) H 12/16/20 16:51 Urine RBC (Auto) 8.0 /HPF (0.0-6.0) 12/16/20 16:51 U Epithel Cells (Auto) 2.0 /HPF (0-13.0) 12/16/20 16:51 Urine Bacteria (Auto) 2+ /HPF (Negative) 12/16/20 16:51 Urine WBC Clumps 3+ /HPF 12/16/20 16:51 Urine Mucus 2+ /HPF 12/16/20 16:51 Urine Yeast (Budding) 3+ /HPF 12/16/20 16:51 Nasal Screen MRSA (PCR) Indeterminate (Negative) 12/17/20 03:36 Coronavirus (PCR) Negative (Negative) 12/17/20 Unknown Microbiology: Microbiology 12/16/20 18:59 Peripheral/Venous Blood Culture - Preliminary NO GROWTH AFTER 24 HOURS 12/16/20 18:59 Peripheral/Venous Blood Culture - Preliminary NO GROWTH AFTER 24 HOURS Dexter/IV: Voiding Method Indwelling Catheter Active Medications - Current Medications Current Medications: Generic Name Dose Route Start Last Admin Trade Name Freq PRN Reason Stop Dose Admin Acetaminophen 650 mg 12/16/20 22:02 Acetaminophen 325 Mg Tab PO Q4H PRN Pain MILD(1-3)/Fever >100.5/BUCKLEY Heparin Sodium (Porcine) 5,000 unit 12/17/20 06:00 12/18/20 06:22 Heparin 5,000 Unit/1 Ml Vial SUB-Q 5,000 unit Q8HR ZENIA Administration Cefepime HCl 2 gm in 100 mls @ 200 mls/hr 12/17/20 10:00 12/18/20 10:21 Cefepime/Ns 2 Gm/100 Ml IV 12/23/20 10:29 200 mls/hr Q24H ZENIA Administration Protocol Dextrose/Sodium Chloride 1,000 mls @ 125 mls/hr 12/17/20 14:00 12/18/20 07:58 D5/0.45ns IV 125 mls/hr DIRECT ZENIA Administration Lorazepam 0.25 mg 12/18/20 10:46 12/18/20 11:17 Lorazepam 0.5 Mg Tab PO 0.25 mg Q8H PRN Administration Agitation Magnesium Hydroxide 30 ml 12/16/20 22:02 Magnesium Hydroxide (Mom) Oral Liqd Udc PO Q4H PRN Constipation Mirtazapine 7.5 mg 12/18/20 22:00 Mirtazapine 15 Mg Tab PO QHS ZENIA Ondansetron HCl 4 mg 12/16/20 22:02 Ondansetron 4 Mg/2 Ml Inj IV Q8H PRN Nausea And Vomiting Sodium Chloride 10 ml 12/17/20 10:00 05/11/21 10:21 Sodium Chloride 0.9% 10 Ml Flush Syringe IV 10 ml BID ZENIA Administration Sodium Chloride 10 ml 12/16/20 22:02 Sodium Chloride 0.9% 10 Ml Flush Syringe IV PRN PRN LINE FLUSH Nutrition/Malnutrition Assess - Dietary Evaluation Nutrition/Malnutrition Findings: Nutrition Notes Start: 12/17/20 10:35 Freq: Status: Active Protocol: Document 12/17/20 10:35 AZIVETTE (Rec: 12/17/20 10:45 [facility] [id number]) Nutrition Notes Need for Assessment generated from: cook candy Initial or Follow up Assessment Current Diagnosis COPD,Decubitus(Pressure Ulcer) ,Sepsis Other Pertinent Diagnosis RLL pneu, r/o COVID-19, ARF, Dementia Current Diet Cardiac Labs/Tests Na 147 BUN 152 Cr 4.2 BG 168 Pertinent Medications Decadron, Levophed gtt, NS at 125ml/hr Height 5 ft 7 in Weight 87.9 kg [place] Body Weight (kg) 61.36 BMI 30.3 Weight Status Obese Subjective/Other Information Pt screened for skin risk ( Karlos score: 14). Pt from [place] with PMHx of COVID-19. Nephrology consulted. Burn Absent Trauma Absent Skin Integrity/Comment Pt with pressure ulcers Minimum of two criteria No #1 Nutrition Diagnosis Predicted suboptimal energy intake Etiology advanced age, medical dx As Evidenced by Signs and Symptoms pt with dementia, ? dx of COVID-19 Is patient on ventilator? No Is Patient Ambulatory and/or Out of Bed No REE-([facility]-confined to bed) 1635.060 Kcal/Kg value to use for calculation 14 Approximate Energy Requirements Using 1231 kcal/Kg Calculation Used for Recommendations Kcal/kg Additional Notes Pro needs 2g/kg IBW: up to 123g/day Fluid needs per MD Nutrition Intervention Change Diet Order: Continue current diet order as tolerated; add mech soft restriction Goal #1 PO tolerance Goal #2 PO intakes to meet at least 75 % energy and pro needs Anticipated Discharge Needs: Unable to identify at this time Follow-Up By: 12/20/20 Additional Comments F/U: intakes, renal function/ need for HD
--- NOTE | 2020-12-18 15:24 | Progress Note ---
Assessment and Plan Assessment and plan: 85-year-old female with known history of COPD, dementia and a recent history of COVID-19 who [facility] presents to the emergency room today for evaluation of shortness of breath and tachypnea. Patient is nonverbal most of the history was obtained from the ER staff. Upon arrival in the emergency room patient was found to be hypotensive with a blood pressure of 69/40. Patient was immediately placed on IV fluid with improvement of blood pressure to the low 100s systolic. Work-up in the emergency room reveals a right lower lobe pneumonia. Labs reveals hyperkalemia of 5.2, elevated BUN and creatinine of 191 and 5.8 respectively. Patient is being admitted with pneumonia, acute renal failure and hyperkalemia. We will also rule out for COVID-19. 12/18/20 - Will check ECHO, obtain Psych consultation for medications management. - Reviewed chest xray, will transfer patient to the IMCU - Obtain ID consultation. - Renal function improving, and Hyperkalemia improved. 12/19: Multiple pressure ulcers as noted. Wound care currently managing both sacral and right heel. Also has a deep-seated although. ID following, Psych workup on going. if no clinically improvement will request wound surgeon eval to ensure no deep seated infection in the pressure ulcer. Still with Tachycardia, ?due to the sepsis vs the agitation. (1) Right lower lobe pneumonia Current Visit: Yes Status: Acute Plan to address problem: Patient placed on empiric antibiotics. Will await culture results. (2) Sepsis with initial septic shock Current Visit: Yes Status: Acute Plan to address problem: Secondary to the pneumonia. Continue on IV fluid . Will monitor labs. (3) Acute hyperkalemia Current Visit: Yes Status: Acute Plan to address problem: Will monitor potassium levels. Continue on IV fluid. (4) Acute renal failure likely ATN from hypotension Current Visit: Yes Status: Acute Plan to address problem: Possible pre-renal. Patient placed on IV fluid. However, consult placed to nephrology for further recommendation. (5)Recent COVID-19 virus infection Current Visit: Yes Status: Acute Plan to address problem: Patient placed on isolation precaution. Consult placed to infectious disease for evaluation. (6) DVT prophylaxis Current Visit: Yes Status: Acute Plan to address problem: Patient placed on SQ heparin (7) Full code status Current Visit: Yes Status: Acute Plan to address problem: Full Code History Interval history: Patient seen and examined, no clinical change, still with tachycardia, agitated. Reviewed medication from outside records it appears the patient is on some chronic psych medications. Hospitalist Physical - Physical exam Narrative exam: General appearance: Present: no acute distress, well-nourished, other (Dry Oral Mucosa) - EENT Eyes: Present: PERRL, EOM intact. Absent: scleral icterus ENT: hearing intact, clear oral mucosa, dentition normal - Neck Neck: Present: supple, normal ROM - Respiratory Respiratory effort: normal Respiratory: bilateral: diminished - Cardiovascular Heart Sounds: Present: S1 & S2. Absent: gallop, systolic murmur, diastolic murmur, rub, click - Extremities Extremities: no ischemia, pulses intact, pulses symmetrical, No edema, normal temperature, normal color, Full ROM Peripheral Pulses: within normal limits - Abdominal General gastrointestinal: Present: soft, non-tender, non-distended, normal bowel sounds. Absent: mass - Integumentary Integumentary: Present: See wound care note. - Musculoskeletal Musculoskeletal: strength equal bilaterally - Psychiatric Psychiatric: appropriate mood/affect, intact judgment & insight, memory intact, cooperative - Neurologic Neurologic: CNII-XII intact, no focal deficits, moves all extremities - Constitutional Vitals: Temp Pulse Resp BP Pulse Ox 97.6 F 120 H 23 109/64 98 12/18/20 12:00 12/18/20 15:11 12/18/20 15:11 12/18/20 15:11 12/18/20 15:11 General appearance: Present: no acute distress, well-nourished, other (Dry Oral Mucosa) HEART Score - HEART Score Troponin: Troponin T 0.070 ng/mL (0.00-0.029) H D 12/17/20 10:15 Results - Labs CBC & Chem 7: 12/18/20 05:01 12/18/20 05:01 Labs: Laboratory Last Values WBC 11.9 K/mm3 (4.5-11.0) H 12/18/20 05:01 RBC 3.06 M/mm3 (3.65-5.03) L 12/18/20 05:01 Hgb 9.2 gm/dl (10.1-14.3) L 12/18/20 05:01 Hct 27.5 % (30.3-42.9) L 12/18/20 05:01 MCV 90 fl (79-97) 12/18/20 05:01 MCH 30 pg (28-32) 12/18/20 05:01 MCHC 33 % (30-34) 12/18/20 05:01 RDW 17.6 % (13.2-15.2) H 12/18/20 05:01 Plt Count 151 K/mm3 (140-440) 12/18/20 05:01 Lymph % (Auto) 4.1 % (13.4-35.0) L 12/16/20 18:59 Mower % (Auto) 5.9 % (0.0-7.3) 12/16/20 18:59 Eos % (Auto) 0.0 % (0.0-4.3) 12/16/20 18:59 Baso % (Auto) 0.2 % (0.0-1.8) 12/16/20 18:59 Lymph # (Auto) 0.8 K/mm3 (1.2-5.4) L 12/16/20 18:59 Mower # (Auto) 1.1 K/mm3 (0.0-0.8) H 12/16/20 18:59 Eos # (Auto) 0.0 K/mm3 (0.0-0.4) 12/16/20 18:59 Baso # (Auto) 0.0 K/mm3 (0.0-0.1) 12/16/20 18:59 Add Manual Diff Complete 12/17/20 07:59 Total Counted 100 12/17/20 07:59 Seg Neutrophils % Cd [employer] Make Up Helper 12/17/20 07:59 Seg Neuts % (Manual) 98.0 % (40.0-70.0) H 12/17/20 07:59 Lymphocytes % (Manual) 1.0 % (13.4-35.0) L 12/17/20 07:59 Monocytes % (Manual) 1.0 % (0.0-7.3) 12/17/20 07:59 Nucleated RBC % Not Reportable 12/17/20 07:59 Seg Neutrophils # 16.3 K/mm3 (1.8-7.7) H 12/16/20 18:59 Seg Neutrophils # Man 15.2 K/mm3 (1.8-7.7) H 12/17/20 07:59 Band Neutrophils # 0.0 K/mm3 12/17/20 07:59 Lymphocytes # (Manual) 0.2 K/mm3 (1.2-5.4) L 12/17/20 07:59 Abs React Lymphs (Man) 0.0 K/mm3 12/17/20 07:59 Monocytes # (Manual) 0.2 K/mm3 (0.0-0.8) 12/17/20 07:59 Eosinophils # (Manual) 0.0 K/mm3 (0.0-0.4) 12/17/20 07:59 Basophils # (Manual) 0.0 K/mm3 (0.0-0.1) 12/17/20 07:59 Metamyelocytes # 0.0 K/mm3 12/17/20 07:59 Myelocytes # 0.0 K/mm3 12/17/20 07:59 Promyelocytes # 0.0 K/mm3 12/17/20 07:59 Blast Cells # 0.0 K/mm3 12/17/20 07:59 WBC Morphology Not Reportable 12/17/20 07:59 Hypersegmented Neuts Not Reportable 12/17/20 07:59 Hyposegmented Neuts Not Reportable 12/17/20 07:59 Hypogranular Neuts Not Reportable 12/17/20 07:59 Smudge Cells Not Reportable 12/17/20 07:59 Toxic Granulation Not Reportable 12/17/20 07:59 Toxic Vacuolation Not Reportable 12/17/20 07:59 Dohle Bodies Not Reportable 12/17/20 07:59 Pelger-Huet Anomaly Not Reportable 12/17/20 07:59 Dave Rods Not Reportable 12/17/20 07:59 Platelet Estimate Consistent w auto 12/17/20 07:59 Clumped Platelets Not Reportable 12/17/20 07:59 Plt Clumps, EDTA Not Reportable 12/17/20 07:59 Large Platelets Not Reportable 12/17/20 07:59 Giant Platelets Not Reportable 12/17/20 07:59 Platelet Satelliting Not Reportable 12/17/20 07:59 Plt Morphology Comment Not Reportable 12/17/20 07:59 RBC Morphology Not Reportable 12/17/20 07:59 Dimorphic RBCs Not Reportable 12/17/20 07:59 Polychromasia Not Reportable 12/17/20 07:59 Hypochromasia Not Reportable 12/17/20 07:59 Poikilocytosis Not Reportable 12/17/20 07:59 Anisocytosis Not Reportable 12/17/20 07:59 Microcytosis Not Reportable 12/17/20 07:59 Macrocytosis Not Reportable 12/17/20 07:59 Spherocytes Not Reportable 12/17/20 07:59 Pappenheimer Bodies Not Reportable 12/17/20 07:59 Sickle Cells Not Reportable 12/17/20 07:59 Target Cells Not Reportable 12/17/20 07:59 Tear Drop Cells Not Reportable 12/17/20 07:59 Ovalocytes Not Reportable 12/17/20 07:59 Helmet Cells Not Reportable 12/17/20 07:59 [place] Bodies Not Reportable 12/17/20 07:59 [place] Rings Not Reportable 12/17/20 07:59 [place] Cells Rare 12/17/20 07:59 Bite Cells Not Reportable 12/17/20 07:59 Crenated Cell Not Reportable 12/17/20 07:59 Elliptocytes Few 12/17/20 07:59 Acanthocytes (Spur) Not Reportable 12/17/20 07:59 Rouleaux Not Reportable 12/17/20 07:59 Hemoglobin C Crystals Not Reportable 12/17/20 07:59 Schistocytes Not Reportable 12/17/20 07:59 Malaria parasites Not Reportable 12/17/20 07:59 Ant Bodies Not Reportable 12/17/20 07:59 Hem Pathologist Commnt No 12/17/20 07:59 PT 16.0 Sec. (12.2-14.9) H 12/17/20 07:59 INR 1.30 (0.87-1.13) H 12/17/20 07:59 APTT 26.6 Sec. (24.2-36.6) 12/16/20 18:59 D-Dimer 3183.35 ng/mlDDU (0-234) H 12/16/20 18:59 ABG pH 7.266 pH Units (7.350-7.450) L 12/16/20 19:29 ABG pCO2 28.5 mm Hg 12/16/20 19:29 ABG pO2 72.2 mm Hg (80.0-90.0) L 12/16/20 19: ABG HCO3 12.7 mmol/L (20.0-26.0) L 12/16/20 19:29 ABG O2 Saturation 93.4 % (95.0-99.0) L 12/16/20 19: ABG O2 Content 14.7 (0.0-44) 12/16/20 19: ABG Base Excess -12.9 mmol/L (-2.0-3.0) L 12/16/20 19: ABG Hemoglobin 11.4 gm/dl (12.0-16.0) L 12/16/20: ABG Carboxyhemoglobin 1.4 % (0.0-5.0) 12/16/20: ABG Methemoglobin 0.5 % (0.0-1.5) 12/16/20 19: Oxyhemoglobin 91.6 % (95.0-99.0) L 12/16/20 19: FiO2 32 % 12/16/20 19:29 Sodium 147 mmol/L (137-145) H 12/18/20 05:01 Potassium 4.4 mmol/L (3.6-5.0) 12/18/20 05:01 Chloride 121.6 mmol/L (98-107) H 12/18/20 05:01 Carbon Dioxide 11 mmol/L (22-30) L 12/18/20 05:01 Anion Gap 19 mmol/L 12/18/20 05:01 BUN 119 mg/dL (7-17) H 12/18/20 05:01 Creatinine 3.1 mg/dL (0.6-1.2) H 12/18/20 05:01 Estimated GFR 14 ml/min 12/18/20 05:01 BUN/Creatinine Ratio 38 % 12/18/20 05:01 Glucose 124 mg/dL (65-100) H 12/18/20 05:01 POC Glucose 102 mg/dL (70-105) 12/18/20 11:26 Lactic Acid 1.90 mmol/L (0.7-2.0) 12/16/20 22:10 Calcium 8.2 mg/dL (8.4-10.2) L 12/18/20 05:01 Ferritin 559.4 ng/mL (10.0-200.0) H 12/16/20 21:03 Total Bilirubin 0.30 mg/dL (0.1-1.2) 12/16/20 18:59 Direct Bilirubin < 0.2 mg/dL (0-0.2) 12/16/20 18:59 Indirect Bilirubin 0.1 mg/dL 12/16/20 18:59 AST 21 units/L (5-40) 12/16/20 18:59 ALT 70 units/L (7-56) H 12/16/20 18:59 Alkaline Phosphatase 94 units/L (35-129) 12/16/20 18:59 Lactate Dehydrogenase 249 units/L (91-180) H 12/16/20 21:03 Troponin T 0.070 ng/mL (0.00-0.029) H D 12/17/20 10:15 C-Reactive Protein 11.30 mg/dL (0.00-1.30) H 12/16/20 21:03 NT-Pro-B Natriuret Pep 1116 pg/mL (0-900) H 12/16/20 18:59 Total Protein 5.7 g/dL (6.3-8.2) L 12/16/20 18:59 Albumin 3.1 g/dL (3.9-5) L 12/16/20 18:59 Albumin/Globulin Ratio 1.2 % 12/16/20 18:59 Triglycerides 104 mg/dL (2-149) 12/16/20 18:59 Cholesterol 99 mg/dL (50-199) 12/16/20 18:59 LDL Cholesterol Direct 59 mg/dL (50-130) 12/16/20 18:59 HDL Cholesterol 24 mg/dL (40-59) L 12/16/20 18:59 Cholesterol/HDL Ratio 4.12 % 12/16/20 18:59 Procalcitonin 0.99 ng/mL (<0.15) 12/16/20 21:03 Urine Color Yellow (Yellow) 12/16/20 16:51 Urine Turbidity Turbid (Clear) 12/16/20 16:51 Urine pH 5.0 (5.0-7.0) 12/16/20 16:51 Ur Specific Carpenter 1.010 (1.003-1.030) 12/16/20 16:51 Urine Protein 30 mg/dl mg/dL (Negative) 12/16/20 16:51 Urine Glucose (UA) Neg mg/dL (Negative) 12/16/20 16:51 Urine Ketones Neg mg/dL (Negative) 12/16/20 16:51 Urine Blood Mod (Negative) 12/16/20 16:51 Urine Nitrite Neg (Negative) 12/16/20 16:51 Urine Bilirubin Neg (Negative) 12/16/20 16:51 Urine Urobilinogen < 2.0 mg/dL (<2.0) 12/16/20 16:51 Ur Leukocyte Esterase Lg (Negative) 12/16/20 16:51 Urine WBC (Auto) > 182.0 /HPF (0.0-6.0) H 12/16/20 16:51 Urine RBC (Auto) 8.0 /HPF (0.0-6.0) 12/16/20 16:51 U Epithel Cells (Auto) 2.0 /HPF (0-13.0) 12/16/20 16:51 Urine Bacteria (Auto) 2+ /HPF (Negative) 12/16/20 16:51 Urine WBC Clumps 3+ /HPF 12/16/20 16:51 Urine Mucus 2+ /HPF 12/16/20 16:51 Urine Yeast (Budding) 3+ /HPF 12/16/20 16:51 Nasal Screen MRSA (PCR) Negative (Negative) 12/17/20 16:10 Coronavirus (PCR) Negative (Negative) 12/17/20 Unknown Microbiology: Microbiology 12/16/20 18:59 Peripheral/Venous Blood Culture - Preliminary NO GROWTH AFTER 24 HOURS 12/16/20 18:59 Peripheral/Venous Blood Culture - Preliminary NO GROWTH AFTER 24 HOURS Dexter/IV: Voiding Method Indwelling Catheter Active Medications - Current Medications Current Medications: Generic Name Dose Route Start Last Admin Trade Name Freq PRN Reason Stop Dose Admin Acetaminophen 650 mg 12/16/20 22:02 Acetaminophen 325 Mg Tab PO Q4H PRN Pain MILD(1-3)/Fever >100.5/BUCKLEY Heparin Sodium (Porcine) 5,000 unit 12/17/20 06:00 12/18/20 13:33 Heparin 5,000 Unit/1 Ml Vial SUB-Q 5,000 unit Q8HR ZENIA Administration Cefepime HCl 2 gm in 100 mls @ 200 mls/hr 12/17/20 10:00 12/18/20 10:21 Cefepime/Ns 2 Gm/100 Ml IV 12/23/20 10:29 200 mls/hr Q24H ZENIA Administration Protocol Dextrose/Sodium Chloride 1,000 mls @ 125 mls/hr 12/17/20 14:00 12/18/20 07:58 D5/0.45ns IV 125 mls/hr DIRECT ZENIA Administration Lorazepam 0.25 mg 12/18/20 10:46 12/18/20 11:17 Lorazepam 0.5 Mg Tab PO 0.25 mg Q8H PRN Administration Agitation Magnesium Hydroxide 30 ml 12/16/20 22:02 Magnesium Hydroxide (Mom) Oral Liqd Udc PO Q4H PRN Constipation Mirtazapine 7.5 mg 12/18/20 22:00 Mirtazapine 15 Mg Tab PO QHS ZENIA Ondansetron HCl 4 mg 12/16/20 22:02 Ondansetron 4 Mg/2 Ml Inj IV Q8H PRN Nausea And Vomiting Sodium Chloride 10 ml 12/17/20 10:00 12/18/20 10:21 Sodium Chloride 0.9% 10 Ml Flush Syringe IV 10 ml BID ZENIA Administration Sodium Chloride 10 ml 12/16/20 22:02 Sodium Chloride 0.9% 10 Ml Flush Syringe IV PRN PRN LINE FLUSH Nutrition/Malnutrition Assess - Dietary Evaluation Nutrition/Malnutrition Findings: Nutrition Notes Start: 12/17/20 10:35 Freq: Status: Active Protocol: Document 12/17/20 10:35 URSULA (Rec: 12/17/20 10:45 COUNTS INCLUDE 234 BEDS AT THE [facility] [id number]) Nutrition Notes Need for Assessment generated from: child protective services specialist Initial or Follow up Assessment Current Diagnosis COPD,Decubitus(Pressure Ulcer) ,Sepsis Other Pertinent Diagnosis RLL pneu, r/o COVID-19, ARF, Dementia Current Diet Cardiac Labs/Tests Na 147 BUN 152 Cr 4.2 BG 168 Pertinent Medications Decadron, Levophed gtt, NS at 125ml/hr Height 5 ft 7 in Weight 87.9 kg [place] Body Weight (kg) 61.36 BMI 30.3 Weight Status Obese Subjective/Other Information Pt screened for skin risk ( Karlos score: 14). Pt from [place] with PMHx of COVID-19. Nephrology consulted. Burn Absent Trauma Absent Skin Integrity/Comment Pt with pressure ulcers Minimum of two criteria No #1 Nutrition Diagnosis Predicted suboptimal energy intake Etiology advanced age, medical dx As Evidenced by Signs and Symptoms pt with dementia, ? dx of COVID-19 Is patient on ventilator? No Is Patient Ambulatory and/or Out of Bed No REE-([place]-confined to bed) 1635.060 Kcal/Kg value to use for calculation 14 Approximate Energy Requirements Using 1231 kcal/Kg Calculation Used for Recommendations Kcal/kg Additional Notes Pro needs 2g/kg IBW: up to 123g/day Fluid needs per MD Nutrition Intervention Change Diet Order: Continue current diet order as tolerated; add mech soft restriction Goal #1 PO tolerance Goal #2 PO intakes to meet at least 75 % energy and pro needs Anticipated Discharge Needs: Unable to identify at this time Follow-Up By: 12/20/20 Additional Comments F/U: intakes, renal function/ need for HD
[2020-12-18] MEDS: ACETAMINOPHEN 325 MG TAB PO PRN (17:53)
[2020-12-18] MEDS ORDERED: MIRTAZAPINE 15 MG TAB PO SCH (22:00)
[2020-12-19] MEDS ORDERED: HYDROmorphone 1 MG/1 ML INJ IV ONE (03:09)
[2020-12-19] MEDS ORDERED: LORazepam 2 MG/ML VIAL IV ONE (03:30)
[2020-12-19] MEDS: D5W/0.45% NACL 1,000 ML IV SCH ×2 (04:27→21:42)
[2020-12-19] MEDS: HEPARIN 5,000 UNIT/1 ML VIAL SUB-Q SCH ×3 (05:03→21:37)
[2020-12-19] MEDS ORDERED: LOPERAMIDE HCL 2 MG PO PRN (09:00)
[2020-12-19] MEDS ORDERED: VANCOMYCIN 1,500 MG in SODIUM CHLORIDE 0.9% 500 ML 500 ML IV ONE (10:00)
[2020-12-19] MEDS ORDERED: POLYETHYLENE GLYCOL 3350 17 GM POWDER PO SCH (10:00)
[2020-12-19] MEDS ORDERED: NON-FORMULARY EACH (Escitalopram Oxalate [Lexapro] 20 MG Tablet) PO SCH (10:00)
[2020-12-19] MEDS ORDERED: CHOLECALCIFEROL 250 MCG PO SCH (10:00)
[2020-12-19] MEDS ORDERED: [UNRECOGNIZED DRUG - OTHER] PO SCH (10:00)
[2020-12-19] MEDS ORDERED: NON-FORMULARY EACH (Risperidone [Risperdal] 0.5 MG Tablet) PO SCH (10:00)
[2020-12-19] MEDS: CEFEPIME/NS 2 GM/100 ML 2 GM/100 ML BAG IV SCH (10:05)
[2020-12-19] MEDS: ACETAMINOPHEN 325 MG TAB PO PRN (10:06)
--- NOTE | 2020-12-19 10:22 | Progress Note ---
Assessment and Plan - Patient Problems (1) Acute renal failure Current Visit: Yes Status: Acute Plan to address problem: Likely prerenal injury versus possible acute tubular necrosis in the setting of pneumonia and sepsis. With gentle IV fluid hydration it seems that her renal function is slowly starting to improve. We will continue with conservative management. Follow up on labs today. (2) Acute hyperkalemia Current Visit: Yes Status: Acute Plan to address problem: In the setting of acute kidney injury. With appropriate fluid hydration her serum potassium levels have improved at this time. We will continue to monitor. (3) Right lower lobe pneumonia Current Visit: Yes Status: Acute Plan to address problem: Infectious disease consultation appreciated. Patient is under contact precautions for possible underlying COVID-19 pneumonia. We will follow up with further recommendation this time. Please ensure that antibiotics are dosed appropriately for patient's decreased renal function at this time. (4) Suspected COVID-19 virus infection Current Visit: Yes Status: Acute Plan to address problem: she has tested negative for COVID 19 virus infection.. Subjective Date of service: 12/19/20 Principal diagnosis: Pneumonia Interval history: No acute changes from nephrology standpoint. Labs pending this am. Objective - Vital Signs Vital signs: Vital Signs - 12hr 12/18/20 12/19/20 12/19/20 22:33 04:00 04:33 Temperature 98.4 F 97.9 F Pulse Rate 122 H 110 H 126 H Respiratory 18 18 Rate Blood Pressure 120/62 116/71 O2 Sat by Pulse 95 98 Oximetry 12/19/20 09:25 Temperature Pulse Rate Respiratory Rate Blood Pressure O2 Sat by Pulse 95 Oximetry - General Appearance General appearance: chronically ill EENT: ATNC Neck: no JVD Respiratory: Present: Clear to Ascultation Cardiology: regular Gastrointestinal: normal Integumentary: ulcer (decubitus ulcer ) Neurologic: confused Musculoskeletal: deferred Psychiatric: agitated - Lab 12/18/20 05:01 12/18/20 05:01 Most recent lab results ABG pH 7.266 pH Units (7.350-7.450) L 12/16/20 19:29 ABG pCO2 28.5 mm Hg 12/16/20 19:29 ABG pO2 72.2 mm Hg (80.0-90.0) L 12/16/20 19:29 ABG HCO3 12.7 mmol/L (20.0-26.0) L 12/16/20 19:29 ABG O2 Saturation 93.4 % (95.0-99.0) L 12/16/20 19:29 Calcium 8.2 mg/dL (8.4-10.2) L 12/18/20 05:01 - Allied health notes Allied health notes reviewed: nursing Medications & Allergies - Medications Allergies/Adverse Reactions: Allergies codeine Adverse Reaction (Verified 12/16/20 19:09) Unknown diphenhydramine [From Benadryl] Adverse Reaction (Verified 12/16/20 19:09) Unknown oxycodone Adverse Reaction (Verified 12/16/20 19:09) Unknown Home Medications: Home Medications Medication Instructions Recorded Confirmed Last Taken Type Acetaminophen [Tylenol] 1,000 mg PO Q8HR PRN 12/17/20 12/17/20 Unknown History Carboxymethylcellulose Sodium 1 each OP QHS 12/17/20 12/17/20 Unknown History [Refresh Plus] Cholecalciferol (Vitamin D3) 250 mcg PO QAM 12/17/20 12/17/20 Unknown History [Vitamin D3] Cyanocobalamin (Vitamin B-12) 1,000 mcg IM [id number] 12/17/20 12/17/20 Unknown History [Physicians Ez Use B-12] Escitalopram Oxalate [Lexapro] 20 mg PO DAILY 12/17/20 12/17/20 Unknown History Ipratropium/Albuterol Sulfate 1 ampul IH Q6HR 12/17/20 12/17/20 Unknown History [DUONEB *Not for PRN Use*] Levothyroxine [Synthroid] 50 mcg PO DAILY 12/17/20 12/17/20 Unknown History Loperamide HCl [Anti-Diarrheal] 2 mg PO Q8HR PRN 12/17/20 12/17/20 Unknown History Midodrine HCl 10 mg PO TID 12/17/20 12/17/20 Unknown History Mirtazapine 7.5 mg PO QHS 12/17/20 12/17/20 Unknown History Montelukast [Singulair] 10 mg PO QPM 12/17/20 12/17/20 Unknown History Nitroglycerin [Nitrostat] 0.4 mg SL Q5M PRN 12/17/20 12/17/20 Unknown History Ropinirole HCl [rOPINIRole] 5 mg PO TID 12/17/20 12/17/20 Unknown History polyethylene glycoL 3350 [Miralax 34 gm PO BID 12/17/20 12/17/20 Unknown History 3350] prednisoLONE ACETATE 1% [Pred 1 drops OP DAILY 12/17/20 12/17/20 Unknown History Forte 1%] risperiDONE [RisperDAL] 0.5 mg PO BID 12/17/20 12/17/20 Unknown History Active Medications: Generic Name Dose Route Start Last Admin Trade Name Freq PRN Reason Stop Dose Admin Acetaminophen 650 mg 12/16/20 22:02 12/18/20 17:53 Acetaminophen 325 Mg Tab PO 650 mg Q4H PRN Administration Pain MILD(1-3)/Fever >100.5/BUCKLEY Albuterol/Ipratropium 1 ampul 12/19/20 12:00 Ipratropium/Albuterol Sulfate 3 Ml Ampul.Neb IH Q6HR ZENIA Heparin Sodium (Porcine) 5,000 unit 12/17/20 06:00 12/19/20 05:03 Heparin 5,000 Unit/1 Ml Vial SUB-Q 5,000 unit Q8HR ZENIA Administration Cefepime HCl 2 gm in 100 mls @ 200 mls/hr 12/17/20 10:00 12/19/20 10:05 Cefepime/Ns 2 Gm/100 Ml IV 12/23/20 10:29 200 mls/hr Q24H ZENIA Administration Protocol Dextrose/Sodium Chloride 1,000 mls @ 125 mls/hr 12/17/20 14:00 12/19/20 04:27 D5/0.45ns IV 125 mls/hr DIRECT ZENIA Administration Vancomycin HCl 1,500 mg/ 530 mls @ 333.333 mls/hr 12/19/20 10:00 12/19/20 10:01 Sodium Chloride IV 12/19/20 11:35 333.333 mls/hr ONCE ONE Administration Sodium Chloride 1,000 mls @ 999 mls/hr 12/19/20 09:03 Nacl 0.9% 1000 Ml IV 12/19/20 10:03 BOLUS ONE Levothyroxine Sodium 50 mcg 12/19/20 10:00 Levothyroxine 50 Mcg Tab PO DAILY ZENIA Lorazepam 0.25 mg 12/18/20 10:46 12/18/20 23:27 Lorazepam 0.5 Mg Tab PO 0.25 mg Q8H PRN Administration Agitation Magnesium Hydroxide 30 ml 12/16/20 22:02 Magnesium Hydroxide (Mom) Oral Liqd Udc PO Q4H PRN Constipation Mirtazapine 7.5 mg 12/18/20 22:00 12/18/20 23:28 Mirtazapine 15 Mg Tab PO 7.5 mg QHS ZENIA Administration Miscellaneous Medication 10 mg 12/19/20 14:00 Midodrine Hcl [Midodrine Hcl] PO TID ZENIA Miscellaneous Medication 7.5 mg 12/19/20 22:00 Mirtazapine [Mirtazapine] PO QHS ZENIA Miscellaneous Medication 5 mg 12/19/20 14:00 Ropinirole Hcl [Ropinirole] PO TID ZENIA Miscellaneous Medication 0.5 mg 12/19/20 10:00 Risperidone [Risperdal] PO BID [facility] Miscellaneous Medication 1 each 12/19/20 22:00 Carboxymethylcellulose Sodium [Refresh Plus] OP QHS [facility] Miscellaneous Medication 250 mcg 12/19/20 10:00 Cholecalciferol (Vitamin D3) [Vitamin D3 10,000 Unit] PO QAM ZENIA Miscellaneous Medication 20 mg 12/19/20 10:00 Escitalopram Oxalate [Lexapro] PO DAILY ZENIA Miscellaneous Medication 2 mg 12/19/20 09:00 Loperamide Hcl [Anti-Diarrheal] PO Q8HR PRN Diarrhea Ondansetron HCl 4 mg 12/16/20 22:02 Ondansetron 4 Mg/2 Ml Inj IV Q8H PRN Nausea And Vomiting Polyethylene Glycol 34 gm 12/19/20 10:00 Polyethylene Glycol 3350 17 Gm Powder PO BID ZENIA Sodium Chloride 10 ml 12/17/20 10:00 12/19/20 10:01 Sodium Chloride 0.9% 10 Ml Flush Syringe IV 10 ml BID ZENIA Administration Sodium Chloride 10 ml 12/16/20 22:02 Sodium Chloride 0.9% 10 Ml Flush Syringe IV PRN PRN LINE FLUSH
--- NOTE | 2020-12-19 10:27 | Progress Note ---
Assessment and Plan Assessment and plan: 85-year-old female with known history of COPD, dementia and a recent history of COVID-19 who is resident of a [facility] presents to the emergency room today for evaluation of shortness of breath and tachypnea. Patient is nonverbal most of the history was obtained from the ER staff. Upon arrival in the emergency room patient was found to be hypotensive with a blood pressure of 69/40. Patient was immediately placed on IV fluid with improvement of blood pressure to the low 100s systolic. Work-up in the emergency room reveals a right lower lobe pneumonia. Labs reveals hyperkalemia of 5.2, elevated BUN and creatinine of 191 and 5.8 respectively. Patient is being admitted with pneumonia, acute renal failure and hyperkalemia. We will also rule out for COVID-19. 12/18/20 - Will check ECHO, obtain Psych consultation for medications management. - Reviewed chest xray, will transfer patient to the IMCU - Obtain ID consultation. - Renal function improving, and Hyperkalemia improved. 12/19: Multiple pressure ulcers as noted. Wound care currently managing both sacral and right heel. Also has a deep-seated although. ID following, Psych workup on going. if no clinically improvement will request wound surgeon eval to ensure no deep seated infection in the pressure ulcer. Still with Tachycardia, ?due to the sepsis vs the agitation. Echocardiogram reveals an EF of 40 to 45%. We will bolus of fluid at this time. Will obtain dietitians evaluation patient will benefit diet is optimize. Anti cipate discharge in 24 hours if okay with ID (1) Right lower lobe pneumonia Current Visit: Yes Status: Acute Plan to address problem: Patient placed on empiric antibiotics. Will await culture results. (2) Sepsis with initial septic shock Current Visit: Yes Status: Acute Plan to address problem: Secondary to the pneumonia. Continue on IV fluid . Will monitor labs. (3) Acute hyperkalemia Current Visit: Yes Status: Acute Plan to address problem: Will monitor potassium levels. Continue on IV fluid. (4) Acute renal failure likely ATN from hypotension Current Visit: Yes Status: Acute Plan to address problem: Possible pre-renal. Patient placed on IV fluid. However, consult placed to nephrology for further recommendation. (5)Recent COVID-19 virus infection Current Visit: Yes Status: Acute Plan to address problem: Patient placed on isolation precaution. Consult placed to infectious disease for evaluation. (6) DVT prophylaxis Current Visit: Yes Status: Acute Plan to address problem: Patient placed on SQ heparin (7) Full code status Current Visit: Yes Status: Acute Plan to address problem: Full Code History Interval history: Patient seen and examined, no clinical change, still with tachycardia, not agitated. Hospitalist Physical - Physical exam Narrative exam: General appearance: Present: no acute distress, well-nourished, drowsy other (Dry Oral Mucosa) - EENT Eyes: Present: PERRL, EOM intact. Absent: scleral icterus ENT: hearing intact, clear oral mucosa, dentition normal - Neck Neck: Present: supple, normal ROM - Respiratory Respiratory effort: normal Respiratory: bilateral: diminished - Cardiovascular Heart Sounds: Present: S1 & S2. Absent: gallop, systolic murmur, diastolic murmur, rub, click - Extremities Extremities: no ischemia, pulses intact, pulses symmetrical, No edema, normal temperature, normal color, Full ROM Peripheral Pulses: within normal limits - Abdominal General gastrointestinal: Present: soft, non-tender, non-distended, normal bowel sounds. Absent: mass - Integumentary Integumentary: Present: See wound care note. - Musculoskeletal Musculoskeletal: strength equal bilaterally - Psychiatric Psychiatric: withdrawn - Neurologic Neurologic: CNII-XII intact, no focal deficits, moves all extremities - Constitutional Vitals: Temp Pulse Resp BP Pulse Ox 97.9 F 126 H 18 116/71 95 12/19/20 04:33 12/19/20 04:33 12/19/20 04:33 12/19/20 04:33 12/19/20 09:25 General appearance: Present: no acute distress, well-nourished, other (Dry Oral Mucosa) HEART Score - HEART Score Troponin: Troponin T 0.070 ng/mL (0.00-0.029) H D 12/17/20 10:15 Results - Labs CBC & Chem 7: 12/18/20 05:01 12/18/20 05:01 Labs: Laboratory Last Values WBC 11.9 K/mm3 (4.5-11.0) H 12/18/20 05:01 RBC 3.06 M/mm3 (3.65-5.03) L 12/18/20 05:01 Hgb 9.2 gm/dl (10.1-14.3) L 12/18/20 05:01 Hct 27.5 % (30.3-42.9) L 12/18/20 05:01 MCV 90 fl (79-97) 12/18/20 05:01 MCH 30 pg (28-32) 12/18/20 05:01 MCHC 33 % (30-34) 12/18/20 05:01 RDW 17.6 % (13.2-15.2) H 12/18/20 05:01 Plt Count 151 K/mm3 (140-440) 12/18/20 05:01 Lymph % (Auto) 4.1 % (13.4-35.0) L 12/16/20 18:59 [place] % (Auto) 5.9 % (0.0-7.3) 12/16/20 18:59 Eos % (Auto) 0.0 % (0.0-4.3) 12/16/20 18:59 Baso % (Auto) 0.2 % (0.0-1.8) 12/16/20 18:59 Lymph # (Auto) 0.8 K/mm3 (1.2-5.4) L 12/16/20 18:59 [place] # (Auto) 1.1 K/mm3 (0.0-0.8) H 12/16/20 18:59 Eos # (Auto) 0.0 K/mm3 (0.0-0.4) 12/16/20 18:59 Baso # (Auto) 0.0 K/mm3 (0.0-0.1) 12/16/20 18:59 Add Manual Diff Complete 12/17/20 07:59 Total Counted 100 12/17/20 07:59 Seg Neutrophils % Bank Analyst 12/17/20 07:59 Seg Neuts % (Manual) 98.0 % (40.0-70.0) H 12/17/20 07:59 Lymphocytes % (Manual) 1.0 % (13.4-35.0) L 12/17/20 07:59 Monocytes % (Manual) 1.0 % (0.0-7.3) 12/17/20 07:59 Nucleated RBC % Not Reportable 12/17/20 07:59 Seg Neutrophils # 16.3 K/mm3 (1.8-7.7) H 12/16/20 18:59 Seg Neutrophils # Man 15.2 K/mm3 (1.8-7.7) H 12/17/20 07:59 Band Neutrophils # 0.0 K/mm3 12/17/20 07:59 Lymphocytes # (Manual) 0.2 K/mm3 (1.2-5.4) L 12/17/20 07:59 Abs React Lymphs (Man) 0.0 K/mm3 12/17/20 07:59 Monocytes # (Manual) 0.2 K/mm3 (0.0-0.8) 12/17/20 07:59 Eosinophils # (Manual) 0.0 K/mm3 (0.0-0.4) 12/17/20 07:59 Basophils # (Manual) 0.0 K/mm3 (0.0-0.1) 12/17/20 07:59 Metamyelocytes # 0.0 K/mm3 12/17/20 07:59 Myelocytes # 0.0 K/mm3 12/17/20 07:59 Promyelocytes # 0.0 K/mm3 12/17/20 07:59 Blast Cells # 0.0 K/mm3 12/17/20 07:59 WBC Morphology Not Reportable 12/17/20 07:59 Hypersegmented Neuts Not Reportable 12/17/20 07:59 Hyposegmented Neuts Not Reportable 12/17/20 07:59 Hypogranular Neuts Not Reportable 12/17/20 07:59 Smudge Cells Not Reportable 12/17/20 07:59 Toxic Granulation Not Reportable 12/17/20 07:59 Toxic Vacuolation Not Reportable 12/17/20 07:59 Dohle Bodies Not Reportable 12/17/20 07:59 Pelger-Huet Anomaly Not Reportable 12/17/20 07:59 Dave Rods Not Reportable 12/17/20 07:59 Platelet Estimate Consistent w auto 12/17/20 07:59 Clumped Platelets Not Reportable 12/17/20 07:59 Plt Clumps, EDTA Not Reportable 12/17/20 07:59 Large Platelets Not Reportable 12/17/20 07:59 Giant Platelets Not Reportable 12/17/20 07:59 Platelet Satelliting Not Reportable 12/17/20 07:59 Plt Morphology Comment Not Reportable 12/17/20 07:59 RBC Morphology Not Reportable 12/17/20 07:59 Dimorphic RBCs Not Reportable 12/17/20 07:59 Polychromasia Not Reportable 12/17/20 07:59 Hypochromasia Not Reportable 12/17/20 07:59 Poikilocytosis Not Reportable 12/17/20 07:59 Anisocytosis Not Reportable 12/17/20 07:59 Microcytosis Not Reportable 12/17/20 07:59 Macrocytosis Not Reportable 12/17/20 07:59 Spherocytes Not Reportable 12/17/20 07:59 Pappenheimer Bodies Not Reportable 12/17/20 07:59 Sickle Cells Not Reportable 12/17/20 07:59 Target Cells Not Reportable 12/17/20 07:59 Tear Drop Cells Not Reportable 12/17/20 07:59 Ovalocytes Not Reportable 12/17/20 07:59 Helmet Cells Not Reportable 12/17/20 07:59 [place] Bodies Not Reportable 12/17/20 07:59 [place] Rings Not Reportable 12/17/20 07:59 Lisa Cells Rare 12/17/20 07:59 Bite Cells Not Reportable 12/17/20 07:59 Crenated Cell Not Reportable 12/17/20 07:59 Elliptocytes Few 12/17/20 07:59 Acanthocytes (Spur) Not Reportable 12/17/20 07:59 Rouleaux Not Reportable 12/17/20 07:59 Hemoglobin C Crystals Not Reportable 12/17/20 07:59 Schistocytes Not Reportable 12/17/20 07:59 Malaria parasites Not Reportable 12/17/20 07:59 Ant Bodies Not Reportable 12/17/20 07:59 Hem Pathologist Commnt No 12/17/20 07:59 PT 16.0 Sec. (12.2-14.9) H 12/17/20 07:59 INR 1.30 (0.87-1.13) H 12/17/20 07:59 APTT 26.6 Sec. (24.2-36.6) 12/16/20 18:59 D-Dimer 3183.35 ng/mlDDU (0-234) H 12/16/20 18:59 ABG pH 7.266 pH Units (7.350-7.450) L 12/16/20 19: ABG pCO2 28.5 mm Hg 12/16/20 19: ABG pO2 72.2 mm Hg (80.0-90.0) L 12/16/20 19: ABG HCO3 12.7 mmol/L (20.0-26.0) L 12/16/20 19: ABG O2 Saturation 93.4 % (95.0-99.0) L 12/16/20: ABG O2 Content 14.7 (0.0-44) 12/16/20: ABG Base Excess -12.9 mmol/L (-2.0-3.0) L 12/16/20: ABG Hemoglobin 11.4 gm/dl (12.0-16.0) L 12/16/20: ABG Carboxyhemoglobin 1.4 % (0.0-5.0) 12/16/20: ABG Methemoglobin 0.5 % (0.0-1.5) 12/16/20: Oxyhemoglobin 91.6 % (95.0-99.0) L 12/16/20 19: FiO2 32 % 12/16/20 19: Sodium 147 mmol/L (137-145) H 12/18/20 05:01 Potassium 4.4 mmol/L (3.6-5.0) 12/18/20 05:01 Chloride 121.6 mmol/L (98-107) H 12/18/20 05:01 Carbon Dioxide 11 mmol/L (22-30) L 12/18/20 05:01 Anion Gap 19 mmol/L 12/18/20 05:01 BUN 119 mg/dL (7-17) H 12/18/20 05:01 Creatinine 3.1 mg/dL (0.6-1.2) H 12/18/20 05:01 Estimated GFR 14 ml/min 12/18/20 05:01 BUN/Creatinine Ratio 38 % 12/18/20 05:01 Glucose 124 mg/dL (65-100) H 12/18/20 05:01 POC Glucose 143 mg/dL (70-105) H 12/19/20 08:01 Lactic Acid 1.90 mmol/L (0.7-2.0) 12/16/20 22:10 Calcium 8.2 mg/dL (8.4-10.2) L 12/18/20 05:01 Ferritin 559.4 ng/mL (10.0-200.0) H 12/16/20 21:03 Total Bilirubin 0.30 mg/dL (0.1-1.2) 12/16/20 18:59 Direct Bilirubin < 0.2 mg/dL (0-0.2) 12/16/20 18:59 Indirect Bilirubin 0.1 mg/dL 12/16/20 18:59 AST 21 units/L (5-40) 12/16/20 18:59 ALT 70 units/L (7-56) H 12/16/20 18:59 Alkaline Phosphatase 94 units/L (35-129) 12/16/20 18:59 Lactate Dehydrogenase 249 units/L (91-180) H 12/16/20 21:03 Troponin T 0.070 ng/mL (0.00-0.029) H D 12/17/20 10:15 C-Reactive Protein 11.30 mg/dL (0.00-1.30) H 12/16/20 21:03 NT-Pro-B Natriuret Pep 1116 pg/mL (0-900) H 12/16/20 18:59 Total Protein 5.7 g/dL (6.3-8.2) L 12/16/20 18:59 Albumin 3.1 g/dL (3.9-5) L 12/16/20 18:59 Albumin/Globulin Ratio 1.2 % 12/16/20 18:59 Triglycerides 104 mg/dL (2-149) 12/16/20 18:59 Cholesterol 99 mg/dL (50-199) 12/16/20 18:59 LDL Cholesterol Direct 59 mg/dL (50-130) 12/16/20 18:59 HDL Cholesterol 24 mg/dL (40-59) L 12/16/20 18:59 Cholesterol/HDL Ratio 4.12 % 12/16/20 18:59 Procalcitonin 0.99 ng/mL (<0.15) 12/16/20 21:03 Urine Color Yellow (Yellow) 12/16/20 16:51 Urine Turbidity Turbid (Clear) 12/16/20 16:51 Urine pH 5.0 (5.0-7.0) 12/16/20 16:51 Ur Specific [place] 1.010 (1.003-1.030) 12/16/20 16:51 Urine Protein 30 mg/dl mg/dL (Negative) 12/16/20 16:51 Urine Glucose (UA) Neg mg/dL (Negative) 12/16/20 16:51 Urine Ketones Neg mg/dL (Negative) 12/16/20 16:51 Urine Blood Mod (Negative) 12/16/20 16:51 Urine Nitrite Neg (Negative) 12/16/20 16:51 Urine Bilirubin Neg (Negative) 12/16/20 16:51 Urine Urobilinogen < 2.0 mg/dL (<2.0) 12/16/20 16:51 Ur Leukocyte Esterase Lg (Negative) 12/16/20 16:51 Urine WBC (Auto) > 182.0 /HPF (0.0-6.0) H 12/16/20 16:51 Urine RBC (Auto) 8.0 /HPF (0.0-6.0) 12/16/20 16:51 U Epithel Cells (Auto) 2.0 /HPF (0-13.0) 12/16/20 16:51 Urine Bacteria (Auto) 2+ /HPF (Negative) 12/16/20 16:51 Urine WBC Clumps 3+ /HPF 12/16/20 16:51 Urine Mucus 2+ /HPF 12/16/20 16:51 Urine Yeast (Budding) 3+ /HPF 12/16/20 16:51 Nasal Screen MRSA (PCR) Negative (Negative) 12/17/20 16:10 Random Vancomycin 5.4 ug/mL (0-40.0) 12/19/20 05:05 Coronavirus (PCR) Negative (Negative) 12/17/20 Unknown Microbiology: Microbiology 12/16/20 18:59 Peripheral/Venous Blood Culture - Preliminary NO GROWTH AFTER 48 HOURS 12/16/20 18:59 Peripheral/Venous Blood Culture - Preliminary NO GROWTH AFTER 48 HOURS Dexter/IV: Voiding Method Indwelling Catheter Active Medications - Current Medications Current Medications: Generic Name Dose Route Start Last Admin Trade Name Freq PRN Reason Stop Dose Admin Acetaminophen 650 mg 12/16/20 22:02 12/18/20 17:53 Acetaminophen 325 Mg Tab PO 650 mg Q4H PRN Administration Pain MILD(1-3)/Fever >100.5/BUCKLEY Albuterol/Ipratropium 1 ampul 12/19/20 12:00 Ipratropium/Albuterol Sulfate 3 Ml Ampul.Neb IH Q6HR ZENIA Heparin Sodium (Porcine) 5,000 unit 12/17/20 06:00 12/19/20 05:03 Heparin 5,000 Unit/1 Ml Vial SUB-Q 5,000 unit Q8HR ZENIA Administration Cefepime HCl 2 gm in 100 mls @ 200 mls/hr 12/17/20 10:00 12/19/20 10:05 Cefepime/Ns 2 Gm/100 Ml IV 12/23/20 10:29 200 mls/hr Q24H ZENIA Administration Protocol Dextrose/Sodium Chloride 1,000 mls @ 125 mls/hr 12/17/20 14:00 12/19/20 04:27 D5/0.45ns IV 125 mls/hr DIRECT ZENIA Administration Vancomycin HCl 1,500 mg/ 530 mls @ 333.333 mls/hr 12/19/20 10:00 12/19/20 10:01 Sodium Chloride IV 12/19/20 11:35 333.333 mls/hr ONCE ONE Administration Sodium Chloride 1,000 mls @ 999 mls/hr 12/19/20 09:03 Nacl 0.9% 1000 Ml IV 12/19/20 10:03 BOLUS ONE Levothyroxine Sodium 50 mcg 12/19/20 10:00 Levothyroxine 50 Mcg Tab PO DAILY ZENIA Lorazepam 0.25 mg 12/18/20 10:46 12/18/20 23:27 Lorazepam 0.5 Mg Tab PO 0.25 mg Q8H PRN Administration Agitation Magnesium Hydroxide 30 ml 12/16/20 22:02 Magnesium Hydroxide (Mom) Oral Liqd Udc PO Q4H PRN Constipation Mirtazapine 7.5 mg 12/18/20 22:00 12/18/20 23:28 Mirtazapine 15 Mg Tab PO 7.5 mg QHS ZENIA Administration Miscellaneous Medication 10 mg 12/19/20 14:00 Midodrine Hcl [Midodrine Hcl] PO TID ZENIA Miscellaneous Medication 7.5 mg 12/19/20 22:00 Mirtazapine [Mirtazapine] PO QHS ZENIA Miscellaneous Medication 5 mg 12/19/20 14:00 Ropinirole Hcl [Ropinirole] PO TID ZENIA Miscellaneous Medication 0.5 mg 12/19/20 10:00 Risperidone [Risperdal] PO BID ZENIA Miscellaneous Medication 1 each 12/19/20 22:00 Carboxymethylcellulose Sodium [Refresh Plus] OP QHS ZENIA Miscellaneous Medication 250 mcg 12/19/20 10:00 Cholecalciferol (Vitamin D3) [Vitamin D3 10,000 Unit] PO QAM ZENIA Miscellaneous Medication 20 mg 12/19/20 10:00 Escitalopram Oxalate [Lexapro] PO DAILY ZENIA Miscellaneous Medication 2 mg 12/19/20 09:00 Loperamide Hcl [Anti-Diarrheal] PO Q8HR PRN Diarrhea Ondansetron HCl 4 mg 12/16/20 22:02 Ondansetron 4 Mg/2 Ml Inj IV Q8H PRN Nausea And Vomiting Polyethylene Glycol 34 gm 12/19/20 10:00 Polyethylene Glycol 3350 17 Gm Powder PO BID ZENIA Sodium Chloride 10 ml 12/17/20 10:00 12/19/20 10:01 Sodium Chloride 0.9% 10 Ml Flush Syringe IV 10 ml BID ZENIA Administration Sodium Chloride 10 ml 12/16/20 22:02 Sodium Chloride 0.9% 10 Ml Flush Syringe IV PRN PRN LINE FLUSH Nutrition/Malnutrition Assess - Dietary Evaluation Nutrition/Malnutrition Findings: Nutrition Notes Start: 12/17/20 10:35 Freq: Status: Active Protocol: Document 12/17/20 10:35 RIIVETTE (Rec: 12/17/20 10:45 [facility] [id number]) Nutrition Notes Need for Assessment generated from: english division chair Initial or Follow up Assessment Current Diagnosis COPD,Decubitus(Pressure Ulcer) ,Sepsis Other Pertinent Diagnosis RLL pneu, r/o COVID-19, ARF, Dementia Current Diet Cardiac Labs/Tests Na 147 BUN 152 Cr 4.2 BG 168 Pertinent Medications Decadron, Levophed gtt, NS at 125ml/hr Height 5 ft 7 in Weight 87.9 kg [place] Body Weight (kg) 61.36 BMI 30.3 Weight Status Obese Subjective/Other Information Pt screened for skin risk ( Karlos score: 14). Pt from [place] with PMHx of COVID-19. Nephrology consulted. Burn Absent Trauma Absent Skin Integrity/Comment Pt with pressure ulcers Minimum of two criteria No #1 Nutrition Diagnosis Predicted suboptimal energy intake Etiology advanced age, medical dx As Evidenced by Signs and Symptoms pt with dementia, ? dx of COVID-19 Is patient on ventilator? No Is Patient Ambulatory and/or Out of Bed No REE-([place]-confined to bed) 1635.060 Kcal/Kg value to use for calculation 14 Approximate Energy Requirements Using 1231 kcal/Kg Calculation Used for Recommendations Kcal/kg Additional Notes Pro needs 2g/kg IBW: up to 123g/day Fluid needs per MD Nutrition Intervention Change Diet Order: Continue current diet order as tolerated; add mech soft restriction Goal #1 PO tolerance Goal #2 PO intakes to meet at least 75 % energy and pro needs Anticipated Discharge Needs: Unable to identify at this time Follow-Up By: 12/20/20 Additional Comments F/U: intakes, renal function/ need for HD
--- NOTE | 2020-12-19 10:45 | XRay Report ---
CHEST 1 VIEW INDICATION: pneumonia. COMPARISON: 12/16/2020 FINDINGS: Support devices: None. Heart: Within normal limits. Lungs/Pleura: The lungs are generally clear. Right basilar opacity has resolved. No pleural effusion or pneumothorax. Additional findings: None. IMPRESSION: No acute findings. Signer Name: Crispin Aden Jr, MD Signed: 12/19/2020 10:40 AM Workstation Name: [id number]
--- NOTE | 2020-12-19 10:56 | Progress Note ---
Assessment and Plan - Patient Problems (1) Acute hyperkalemia Current Visit: Yes Status: Acute (2) Acute renal failure Current Visit: Yes Status: Acute (3) Right lower lobe pneumonia Current Visit: Yes Status: Acute (4) Sepsis Current Visit: Yes Status: Acute Subjective Principal diagnosis: Pneumonia Interval history: awake Objective Vital Signs - 12hr 12/19/20 12/19/20 12/19/20 04:00 04:33 09:25 Temperature 97.9 F Pulse Rate 110 H 126 H Respiratory 18 Rate Blood Pressure 116/71 O2 Sat by Pulse 98 95 Oximetry Constitutional: other (awke, intermittently agitated) Eyes: non-icteric ENT: oropharynx moist Neck: supple Effort: other (tachypneic) Ascultation: Bilateral: clear Cardiovascular: other (RR, tachy, no mrg) Gastrointestinal: normoactive bowel sounds, soft, non-tender, non-distended Extremities: no cyanosis, no edema, pink and warm Neurologic: unable to assess Psychiatric: other (unable to assess) CBC and BMP: 12/18/20 05:01 12/19/20 10:50 ABG, PT/INR, D-dimer: ABG ABG pH 7.266 pH Units (7.350-7.450) L 12/16/20 19:29 ABG pCO2 28.5 mm Hg 12/16/20 19:29 ABG pO2 72.2 mm Hg (80.0-90.0) L 12/16/20 19:29 ABG O2 Saturation 93.4 % (95.0-99.0) L 12/16/20 19:29 PT/INR, D-dimer PT 16.0 Sec. (12.2-14.9) H 12/17/20 07:59 INR 1.30 (0.87-1.13) H 12/17/20 07:59 D-Dimer 3183.35 ng/mlDDU (0-234) H 12/16/20 18:59 Abnormal lab findings: Abnormal Labs 12/16/20 12/16/20 12/16/20 16:51 18:51 18:59 WBC 18.2 H RBC 3.60 L Hgb Hct RDW 18.0 H Lymph % (Auto) 4.1 L Lymph # (Auto) 0.8 L [place] # (Auto) 1.1 H Seg Neutrophils % 89.8 H Seg Neuts % (Manual) Lymphocytes % (Manual) Seg Neutrophils # 16.3 H Seg Neutrophils # Man Lymphocytes # (Manual) PT INR D-Dimer ABG pH ABG pO2 ABG HCO3 ABG O2 Saturation ABG Base Excess ABG Hemoglobin Oxyhemoglobin Sodium Potassium Chloride Carbon Dioxide BUN Creatinine Glucose POC Glucose 160 H Calcium Ferritin ALT Lactate Dehydrogenase Troponin T C-Reactive Protein NT-Pro-B Natriuret Pep Total Protein Albumin HDL Cholesterol Urine WBC (Auto) > 182.0 H 12/16/20 12/16/20 12/16/20 18:59 18:59 18:59 WBC RBC Hgb Hct RDW Lymph % (Auto) Lymph # (Auto) [place] # (Auto) Seg Neutrophils % Seg Neuts % (Manual) Lymphocytes % (Manual) Seg Neutrophils # Seg Neutrophils # Man Lymphocytes # (Manual) PT INR D-Dimer 3183.35 H ABG pH ABG pO2 ABG HCO3 ABG O2 Saturation ABG Base Excess ABG Hemoglobin Oxyhemoglobin Sodium Potassium 5.2 H Chloride Carbon Dioxide 13 L BUN 191 H Creatinine 5.8 H Glucose 187 H POC Glucose Calcium Ferritin ALT 70 H Lactate Dehydrogenase Troponin T 0.113 H* C-Reactive Protein NT-Pro-B Natriuret Pep 1116 H Total Protein 5.7 L Albumin 3.1 L HDL Cholesterol 24 L Urine WBC (Auto) 12/16/20 12/16/20 12/16/20 19:29 21:03 21:03 WBC RBC Hgb Hct RDW Lymph % (Auto) Lymph # (Auto) [place] # (Auto) Seg Neutrophils % Seg Neuts % (Manual) Lymphocytes % (Manual) Seg Neutrophils # Seg Neutrophils # Man Lymphocytes # (Manual) PT INR D-Dimer ABG pH 7.266 L ABG pO2 72.2 L ABG HCO3 12.7 L ABG O2 Saturation 93.4 L ABG Base Excess -12.9 L ABG Hemoglobin 11.4 L Oxyhemoglobin 91.6 L Sodium Potassium Chloride Carbon Dioxide BUN Creatinine Glucose 172 H POC Glucose Calcium Ferritin 559.4 H ALT Lactate Dehydrogenase 249 H Troponin T C-Reactive Protein 11.30 H NT-Pro-B Natriuret Pep Total Protein Albumin HDL Cholesterol Urine WBC (Auto) 12/17/20 12/17/20 12/17/20 06:28 07:59 07:59 WBC 15.5 H RBC 3.45 L Hgb Hct RDW 17.4 H Lymph % (Auto) Lymph # (Auto) [place] # (Auto) Seg Neutrophils % Seg Neuts % (Manual) 98.0 H Lymphocytes % (Manual) 1.0 L Seg Neutrophils # Seg Neutrophils # Man 15.2 H Lymphocytes # (Manual) 0.2 L PT 16.0 H INR 1.30 H D-Dimer ABG pH ABG pO2 ABG HCO3 ABG O2 Saturation ABG Base Excess ABG Hemoglobin Oxyhemoglobin Sodium Potassium Chloride Carbon Dioxide BUN Creatinine Glucose POC Glucose 167 H Calcium Ferritin ALT Lactate Dehydrogenase Troponin T C-Reactive Protein NT-Pro-B Natriuret Pep Total Protein Albumin HDL Cholesterol Urine WBC (Auto) 12/17/20 12/17/20 12/17/20 07:59 10:15 11:34 WBC RBC Hgb Hct RDW Lymph % (Auto) Lymph # (Auto) [place] # (Auto) Seg Neutrophils % Seg Neuts % (Manual) Lymphocytes % (Manual) Seg Neutrophils # Seg Neutrophils # Man Lymphocytes # (Manual) PT INR D-Dimer ABG pH ABG pO2 ABG HCO3 ABG O2 Saturation ABG Base Excess ABG Hemoglobin Oxyhemoglobin Sodium 147 H D Potassium Chloride 119.5 H Carbon Dioxide 10 L BUN 152 H Creatinine 4.2 H Glucose 168 H POC Glucose 116 H Calcium 7.7 L Ferritin ALT Lactate Dehydrogenase Troponin T 0.070 H D C-Reactive Protein NT-Pro-B Natriuret Pep Total Protein Albumin HDL Cholesterol Urine WBC (Auto) 12/17/20 12/17/20 12/18/20 17:43 23:22 05:01 WBC 11.9 H RBC 3.06 L Hgb 9.2 L Hct 27.5 L RDW 17.6 H Lymph % (Auto) Lymph # (Auto) [place] # (Auto) Seg Neutrophils % Seg Neuts % (Manual) Lymphocytes % (Manual) Seg Neutrophils # Seg Neutrophils # Man Lymphocytes # (Manual) PT INR D-Dimer ABG pH ABG pO2 ABG HCO3 ABG O2 Saturation ABG Base Excess ABG Hemoglobin Oxyhemoglobin Sodium Potassium Chloride Carbon Dioxide BUN Creatinine Glucose POC Glucose 123 H 136 H Calcium Ferritin ALT Lactate Dehydrogenase Troponin T C-Reactive Protein NT-Pro-B Natriuret Pep Total Protein Albumin HDL Cholesterol Urine WBC (Auto) 12/18/20 12/18/20 12/19/20 05:01 05:37 04:41 WBC RBC Hgb Hct RDW Lymph % (Auto) Lymph # (Auto) [place] # (Auto) Seg Neutrophils % Seg Neuts % (Manual) Lymphocytes % (Manual) Seg Neutrophils # Seg Neutrophils # Man Lymphocytes # (Manual) PT INR D-Dimer ABG pH ABG pO2 ABG HCO3 ABG O2 Saturation ABG Base Excess ABG Hemoglobin Oxyhemoglobin Sodium 147 H Potassium Chloride 121.6 H Carbon Dioxide 11 L BUN 119 H Creatinine 3.1 H Glucose 124 H POC Glucose 122 H 200 H Calcium 8.2 L Ferritin ALT Lactate Dehydrogenase Troponin T C-Reactive Protein NT-Pro-B Natriuret Pep Total Protein Albumin HDL Cholesterol Urine WBC (Auto) 12/19/20 12/19/20 05:36 08:01 WBC RBC Hgb Hct RDW Lymph % (Auto) Lymph # (Auto) [place] # (Auto) Seg Neutrophils % Seg Neuts % (Manual) Lymphocytes % (Manual) Seg Neutrophils # Seg Neutrophils # Man Lymphocytes # (Manual) PT INR D-Dimer ABG pH ABG pO2 ABG HCO3 ABG O2 Saturation ABG Base Excess ABG Hemoglobin Oxyhemoglobin Sodium Potassium Chloride Carbon Dioxide BUN Creatinine Glucose POC Glucose 220 H 143 H Calcium Ferritin ALT Lactate Dehydrogenase Troponin T C-Reactive Protein NT-Pro-B Natriuret Pep Total Protein Albumin HDL Cholesterol Urine WBC (Auto) Allied health notes reviewed: nursing
--- NOTE | 2020-12-19 11:43 | Progress Note ---
Subjective - Reason for Consult Consult date: 12/19/20 Reason for consult: restless - Chief Complaint Chief complaint: The patient was seen today. She is staring at the ceiling. She is grunting and doesn't acknowledge me being there initially. I have to call her name a couple of times. She then says "yea" but continues to grunt. REVIEW OF SYSTEMS Unable to assess MENTAL STATUS EXAMINATION Unable to adequately assess Assessment (1) Bipolar Disorder w/Psychotic Features Current Visit: Yes Status: Acute Treatment Plan Continue Mirtazepin 7.5mg po qhs Agree with Risperidone Sitter: Defer to primary Medical: Per primary Disposition: Do not recommend acute psychiatric inpatient Will follow Case staffed with Dr. Roman Mental Status Exam - Vital signs Last Vital Signs Temp 97.9 F 12/19/20 04:33 Pulse 126 H 12/19/20 04:33 Resp 18 12/19/20 04:33 BP 116/71 12/19/20 04:33 Pulse Ox 95 12/19/20 09:25
[2020-12-19 11:46] LABS: Calcium 7.9 mg/dL (8.4-10.2)
[2020-12-19] MEDS ORDERED: IPRATROPIUM/ALBUTEROL SULFATE 3 ML AMPUL.NEB IH SCH (12:00)
[2020-12-19] MEDS ORDERED: SODIUM CHLORIDE 0.9% 1000 ML 1,000 ML IV ONE (13:00)
[2020-12-19] MEDS ORDERED: NON-FORMULARY EACH (Midodrine Hcl [Midodrine Hcl] 10 MG Tablet) PO SCH (14:00)
[2020-12-19] MEDS ORDERED: ROPINIROLE HCL 5 MG PO SCH (14:00)
[2020-12-19] MEDS: CHOLECALCIFEROL (VIT D3) 5,000 UNIT TAB PO SCH (14:03)
[2020-12-19] MEDS: LORazepam 0.5 MG TAB PO PRN (14:03)
[2020-12-19] MEDS: MIDODRINE 5 MG TAB PO SCH ×2 (14:03→21:36)
[2020-12-19] MEDS: IPRATROPIUM/ALBUTEROL SULFATE 3 ML AMPUL.NEB IH SCH ×2 (14:20→20:32)
--- NOTE | 2020-12-19 14:56 | Progress Note ---
Assessment and Plan Cultures: Blood culture 12/16/2020 no growth today MRSA PCR indeterminate SARS-CoV-2 PCR negative Assessment: 85-year-old female with known history of COPD, dementia and a recent history of COVID-19 who is resident of a assisted, admitted on 12/17/2019 secondary to worsening shortness of breath and tachypnea: #Sepsis with initial septic shock: Leukocytosis improving; likely secondary to pneumonia +/- UTI. Currently off pressors. #Right-sided pneumonia: Likely healthcare associated pneumonia versus COVID-19 pneumonia. #UTI: Urinalysis consistent with UTI. Urine culture pending. #History of COVID-19 infection: In August 2020 treated at [facility]. Noted elevated markers, CRP 11.3 #YULI: Initial creatinine 5.8. Improving #Transaminitis: Mild, likely secondary to sepsis. Recommendations: -Continue cefepime and vancomycin renally adjusted, D3 of 7 -Anticipate discharge home on Augmentin 500 mg p.o. twice daily and doxycycline 100 mg p.o. twice daily total 7 days until 12/23 -Follow-up urine cultures -Monitor creatinine -Aspiration precautions Will follow. Rianna Bajwa MD Infectious Diseases [employer] [facility] M [phone] O [phone] Subjective Date of service: 12/19/20 Principal diagnosis: Pneumonia Interval history: Patient remains alert, nonverbal, noncommunicative Objective - Exam Narrative Exam: General appearance: Alert, debilitated, nonverbal Eyes: anicteric sclerae, moist conjunctivae; no lid-lag; PERRLA HENT: Normocephalic, Atraumatic; normal external ears, nares open, oropharynx limited Neck: supple, tracheal midline, no JVD Lungs: Clear to auscultation bilaterally CV: RRR no murmur Abdomen: Soft, nontender Extremities: no edema, no cyanosis Skin: No rash. Psych: Mildly agitated Neuro: Alert, confused, does not follow commands - Constitutional Vitals: Vital Signs Temp Pulse Resp BP Pulse Ox 98.7 F 115 H 24 120/42 98 12/19/20 12:32 12/19/20 14:20 12/19/20 14:20 12/19/20 12:32 12/19/20 12:32 Temperature -Last 24 Hours Temperature 98.7 F Temperature 97.9 F Temperature 98.4 F Temperature 98.5 F Temperature 98.1 F - Labs CBC & Chem 7: 12/18/20 05:01 12/19/20 10:50 Labs: Abnormal lab results 12/19/20 12/19/20 12/19/20 Range/Units 04:41 05:36 08:01 Sodium (137-145) mmol/L Chloride (98-107) mmol/L Carbon Dioxide (22-30) mmol/L BUN (7-17) mg/dL Creatinine (0.6-1.2) mg/dL POC Glucose 200 H 220 H 143 H (70-105) mg/dL Calcium (8.4-10.2) mg/dL 12/19/20 Range/Units 10:50 Sodium 148 H (137-145) mmol/L Chloride 123.8 H (98-107) mmol/L Carbon Dioxide 11 L (22-30) mmol/L BUN 99 H (7-17) mg/dL Creatinine 2.6 H (0.6-1.2) mg/dL POC Glucose (70-105) mg/dL Calcium 7.9 L (8.4-10.2) mg/dL
[2020-12-19] MEDS ORDERED: LOPERAMIDE 2 MG CAP PO PRN (15:00)
[2020-12-19] MEDS: risperiDONE 0.25 MG TAB PO SCH ×2 (15:37→21:36)
[2020-12-19] MEDS: ESCITALOPRAM 10 MG TAB PO SCH (15:37)
[2020-12-19] MEDS: LEVOTHYROXINE 50 MCG TAB PO SCH (15:37)
[2020-12-19] MEDS: AYR SALINE NASAL GEL 14.1 GM NS SCH ×2 (16:41→21:36)
[2020-12-19] MEDS: rOPINIRole 1 MG TAB PO SCH ×2 (16:45→21:39)
[2020-12-19] MEDS: MIRTAZAPINE 15 MG TAB PO SCH (21:36)
[2020-12-19] MEDS ORDERED: NON-FORMULARY EACH (Mirtazapine [Mirtazapine] 7.5 MG Tablet) PO SCH (22:00)
[2020-12-19] MEDS ORDERED: DROPERETTE OP SCH (22:00)
[2020-12-19] MEDS ORDERED: CARBOXYMETHYLCELLULOSE SODIUM OP SCH (22:00)
[2020-12-19] MEDS: HYPROMELLOSE 0.5% OPHTH SOLN 15 ML OU SCH (22:42)
[2020-12-20] MEDS: IPRATROPIUM/ALBUTEROL SULFATE 3 ML AMPUL.NEB IH SCH ×4 (03:12→21:05)
[2020-12-20] MEDS: HEPARIN 5,000 UNIT/1 ML VIAL SUB-Q SCH ×3 (05:36→21:34)
[2020-12-20] MEDS ORDERED: oxyCODONE /ACETAMINOPHEN 5-325MG TAB PO PRN (06:19)
[2020-12-20] MEDS ORDERED: HYDROcodone/ACETAMINOPHEN 5-325 MG TAB PO PRN (06:30)
[2020-12-20 08:19] LABS: Calcium 7.9 mg/dL (8.4-10.2)
[2020-12-20] MEDS: CEFEPIME/NS 2 GM/100 ML 2 GM/100 ML BAG IV SCH (09:36)
[2020-12-20] MEDS: risperiDONE 0.25 MG TAB PO SCH ×2 (09:39→21:34)
[2020-12-20] MEDS: ESCITALOPRAM 10 MG TAB PO SCH (09:41)
[2020-12-20] MEDS: rOPINIRole 1 MG TAB PO SCH ×3 (09:41→21:35)
[2020-12-20] MEDS: LEVOTHYROXINE 50 MCG TAB PO SCH (09:41)
[2020-12-20] MEDS: MIDODRINE 5 MG TAB PO SCH ×3 (09:41→21:34)
--- NOTE | 2020-12-20 09:57 | Progress Note ---
Subjective - Reason for Consult Consult date: 12/20/20 Reason for consult: restlessness - Chief Complaint Chief complaint: The patient was seen today. A nurse is at bedside. The patient is just moaning out. She is lying still and doesn't appear to be agitated. She just continues to grunt. She does not answer when her name is called. REVIEW OF SYSTEMS Unable to assess MENTAL STATUS EXAMINATION Unable to adequately assess Assessment (1) Bipolar Disorder w/Psychotic Features Current Visit: Yes Status: Acute Treatment Plan Continue Mirtazepin 7.5mg po qhs Vistaril 25mg po daily for anxiety Agree with Risperidone Sitter: Defer to primary Medical: Per primary Disposition: Do not recommend acute psychiatric inpatient Will follow Case staffed with Dr. Roman Mental Status Exam - Vital signs Last Vital Signs Temp 98.7 F 12/20/20 05:10 Pulse 120 H 12/20/20 05:10 Resp 18 12/20/20 05:10 BP 135/51 12/20/20 05:10 Pulse Ox 99 12/20/20 05:10
[2020-12-20] MEDS: CHOLECALCIFEROL (VIT D3) 5,000 UNIT TAB PO SCH (10:45)
--- NOTE | 2020-12-20 10:48 | Cat Scan Report ---
CT head/brain wo con INDICATION: Altered mental status. TECHNIQUE: Routine CT head without contrast. All CT scans at this location are performed using CT dos e reduction for ALARA by means of automated exposure control. COMPARISON: None. FINDINGS: BRAIN / INTRACRANIAL CONTENTS: No acute hemorrhage, mass effect, midline shift, or hydrocephalus. No appreciable acute large territorial or lacunar infarct. No chronic infarct. Age-commensurate ventricu lar and cisternal/sulcal prominence. ORBITS: No significant abnormality of visualized orbits. SINUSES / MASTOIDS: No significant abnormality of visualized sinuses and mastoid air cells. ADDITIONAL FINDINGS: None. IMPRESSION: 1. No acute intracranial abnormality. Signer Name: Edgar Nelson MD Signed: 12/20/2020 10:43 AM Workstation Name: [id number]
--- NOTE | 2020-12-20 11:30 | Discharge Summary ---
Providers - Providers Date of Admission: 12/16/20 22:04 Attending physician: LUIGI DAMIAN MD 12/16/20 22:02 Consult to Physician [CONS] Routine Comment: Consulting Provider: DURGA ROBERTSON Physician Instructions: Reason For Exam: Pneumonia R/O Covid-19 12/16/20 22:24 Consult to Physician [CONS] Routine Comment: called office/ mariama Consulting Provider: VICKY FLORES Physician Instructions: Reason For Exam: Acute Renal Failure 12/17/20 02:31 Consult to Physician [CONS] Routine Comment: dr. knott o/c mariama Consulting Provider: ZANE ACEVEDO Physician Instructions: Reason For Exam: Pneumonia with sepsis,Hypotension- on Levophed 12/17/20 07:28 Consult to Wound/ET Nurse [CONS] Routine Reason For Exam: wound eval 12/17/20 14:09 Consult to Physician [CONS] Routine Comment: spoke to mark (angel) mariama Consulting Provider: MARISOL FITZGERALD Physician Instructions: Reason For Exam: medication mangement 12/18/20 11:33 Speech Therapy Evaluation and Treat [CONS] Routine Reason For Exam: swallowing 12/19/20 17:48 Physical Therapy Evaluation and Treat [CONS] Routine Comment: Reason For Exam: PT eval for discharge needs Primary care physician: LUL PIERCE Hospitalization Reason for admission: PNEUMONIA Condition: Stable Hospital course: 85-year-old female with known history of COPD, dementia and a recent history of COVID-19 who is resident of a intermediate presents to the emergency room today for evaluation of shortness of breath and tachypnea. Patient is nonverbal most of the history was obtained from the ER staff. Upon arrival in the emergency room patient was found to be hypotensive with a blood pressure of 69/40. Patient was immediately placed on IV fluid with improvement of blood pressure to the low 100s systolic. Work-up in the emergency room reveals a right lower lobe pneumonia. Labs reveals hyperkalemia of 5.2, elevated BUN and creatinine of 191 and 5.8 respectively. Patient is being admitted with pneumonia, acute renal failure and hyperkalemia. We will also rule out for COVID-19. 12/18/20 - Will check ECHO, obtain Psych consultation for medications management. - Reviewed chest xray, will transfer patient to the IMCU - Obtain ID consultation. - Renal function improving, and Hyperkalemia improved. 12/19: Multiple pressure ulcers as noted. Wound care currently managing both sacral and right heel. Also has a deep-seated although. ID following, Psych workup on going. if no clinically improvement will request wound surgeon eval to ensure no deep seated infection in the pressure ulcer. Still with Tachycardia, ?due to the sepsis vs the agitation. Echocardiogram reveals an EF of 40 to 45%. We will bolus of fluid at this time. Will obtain dietitians evaluation patient will benefit diet is optimize. Anticipate discharge in 24 hours if okay with ID 12/20: I had extensive discussion on advanced care planning with the daughter we decided to check a CT scan of the head to ensure no CVA as patient was more grunting and questionable if aphasic. She does make some sounds. She has not demonstrated any further fever and by sounds admit that she does have some audible words. She does follow commands. She is debilitated. The daughter had discussed hospice with the case management manager and once again requested for hospice management which I do not think is an unreasonable request and will continue management under hospice/palliative care. Further management to be directed by the hospice team and the daughter and attending. We will complete antibiotics as requested. 12/21: Patient remains stable. Discussed with case management placement found for the patient. No new complaints reported overnight. Pulmonary and ID input noted. (1) Right lower lobe pneumonia (2) Sepsis with initial septic shock (3) Acute hyperkalemia- resolved (4) Acute renal failure likely ATN from hypotension Resolving (5)Recent COVID-19 virus infection (6) Metabolic Acidosis (7) Hypernatremia (8) acute cystitis (9) metabolic encephalopathy Disposition: [facility] ([facility]) Final Discharge Diagnosis (Prints w/discharge instructions): SEPSIS Time spent for discharge: 35 MINS Core Measure Documentation - Palliative Care Palliative Care/ Comfort Measures: Not Applicable - Core Measures Any of the following diagnoses?: none Exam - Physical Exam Narrative exam: General appearance: Present: no acute distress, well-nourished, more awake, Eyes: Present: PERRL, EOM intact. Absent: scleral icterus ENT: hearing intact, clear oral mucosa, dentition normal - Neck Neck: Present: supple, normal ROM - Respiratory Respiratory effort: normal Respiratory: bilateral: diminished - Cardiovascular Heart Sounds: Present: S1 & S2. Absent: gallop, systolic murmur, diastolic murmur, rub, click - Extremities Extremities: no ischemia, pulses intact, pulses symmetrical, No edema, normal temperature, normal color, Full ROM Peripheral Pulses: within normal limits - Abdominal General gastrointestinal: Present: soft, non-tender, non-distended, normal bowel sounds. Absent: mass - Integumentary Integumentary: Present: See wound care note. - Musculoskeletal Musculoskeletal: strength equal bilaterally - Psychiatric Psychiatric: withdrawn - Neurologic Neurologic: CNII-XII intact, no focal deficits, moves all extremities - Constitutional Vitals: Temp Pulse Resp BP Pulse Ox 98.7 F 78 18 135/51 94 12/20/20 05:10 12/20/20 07:38 12/20/20 07:38 12/20/20 05:10 12/20/20 07:38 Plan Activity: advance as tolerated, fall precautions Diet: low fat Special Instructions: record daily weights, record daily BP diary Follow up with: LUL PIERCE MD [Primary Care Provider] - 3-5 Days MARISOL FITZGERALD MD [Staff Physician] - 7 Days LELIA WEI DO [Staff Physician] - 7 Days LILIANA JOSEPH MD [Staff Physician] - 7 Days Prescriptions: Amoxicillin/K Clav Tab [Augmentin 500 MG TAB] 1 each PO Q12HR #14 tablet Doxycycline Hyclate [Doxycycline Hyclate TAB] 100 mg PO Q12HR #14 tab Ipratropium/Albuterol Sulfate [DUONEB *Not for PRN Use*] 1 ampul IH Q6HR #90 Cholecalciferol (Vitamin D3) [Vitamin D3] 5,000 unit PO QDAY #30 tablet
[2020-12-20] MEDS ORDERED: hydrOXYzine PAMOATE 25 MG CAP PO SCH (12:00)
[2020-12-20] MEDS: D5W/0.45% NACL 1,000 ML IV SCH (16:04)
--- NOTE | 2020-12-20 16:19 | Progress Note ---
Assessment and Plan Assessment and plan: 85-year-old female with known history of COPD, dementia and a recent history of COVID-19 who is resident of a senior care presents to the emergency room today for evaluation of shortness of breath and tachypnea. Patient is nonverbal most of the history was obtained from the ER staff. Upon arrival in the emergency room patient was found to be hypotensive with a blood pressure of 69/40. Patient was immediately placed on IV fluid with improvement of blood pressure to the low 100s systolic. Work-up in the emergency room reveals a right lower lobe pneumonia. Labs reveals hyperkalemia of 5.2, elevated BUN and creatinine of 191 and 5.8 respectively. Patient is being admitted with pneumonia, acute renal failure and hyperkalemia. We will also rule out for COVID-19. 12/18/20 - Will check ECHO, obtain Psych consultation for medications management. - Reviewed chest xray, will transfer patient to the IMCU - Obtain ID consultation. - Renal function improving, and Hyperkalemia improved. 12/19: Multiple pressure ulcers as noted. Wound care currently managing both sacral and right heel. Also has a deep-seated although. ID following, Psych workup on going. if no clinically improvement will request wound surgeon eval to ensure no deep seated infection in the pressure ulcer. Still with Tachycardia, ?due to the sepsis vs the agitation. Echocardiogram reveals an EF of 40 to 45%. We will bolus of fluid at this time. Will obtain dietitians evaluation patient will benefit diet is optimize. Anti cipate discharge in 24 hours if okay with ID 12/20: I had extensive discussion on advanced care planning with the daughter we decided to check a CT scan of the head to ensure no CVA as patient was more grunting and questionable if aphasic. She does make some sounds. She has not demonstrated any further fever and by sounds admit that she does have some audible words. She does follow commands. She is debilitated. The daughter had discussed hospice with the patient case manager and once again requested for hospice management which I do not think is an unreasonable request and will continue management under hospice/palliative care. Further management to be directed by the hospice team and the daughter and attending. We will complete antibiotics as requested. (1) Right lower lobe pneumonia (2) Sepsis with initial septic shock (3) Acute hyperkalemia- resolved (4) Acute renal failure likely ATN from hypotension Resolving (5)Recent COVID-19 virus infection (6) Metabolic Acidosis (7) Hypernatremia History Interval history: Patient seen and examined, no clinical change. Hospitalist Physical - Physical exam Narrative exam: General appearance: Present: no acute distress, well-nourished, more awake, still grunting - EENT Eyes: Present: PERRL, EOM intact. Absent: scleral icterus ENT: hearing intact, clear oral mucosa, dentition normal - Neck Neck: Present: supple, normal ROM - Respiratory Respiratory effort: normal Respiratory: bilateral: diminished - Cardiovascular Heart Sounds: Present: S1 & S2. Absent: gallop, systolic murmur, diastolic m urmur, rub, click - Extremities Extremities: no ischemia, pulses intact, pulses symmetrical, No edema, normal temperature, normal color, Full ROM Peripheral Pulses: within normal limits - Abdominal General gastrointestinal: Present: soft, non-tender, non-distended, normal bowel sounds. Absent: mass - Integumentary Integumentary: Present: See wound care note. - Musculoskeletal Musculoskeletal: strength equal bilaterally - Psychiatric Psychiatric: withdrawn - Neurologic Neurologic: CNII-XII intact, no focal deficits, moves all extremities - Constitutional Vitals: Temp Pulse Resp BP Pulse Ox 98.7 F 121 H 18 135/51 94 12/20/20 05:10 12/20/20 14:33 12/20/20 14:33 12/20/20 05:10 12/20/20 07:38 General appearance: Present: no acute distress, well-nourished, other (Dry Oral Mucosa) HEART Score - HEART Score Troponin: Troponin T 0.070 ng/mL (0.00-0.029) H D 12/17/20 10:15 Results - Labs CBC & Chem 7: 12/18/20 05:01 12/20/20 06:54 Labs: Laboratory Last Values WBC 11.9 K/mm3 (4.5-11.0) H 12/18/20 05:01 RBC 3.06 M/mm3 (3.65-5.03) L 12/18/20 05:01 Hgb 9.2 gm/dl (10.1-14.3) L 12/18/20 05:01 Hct 27.5 % (30.3-42.9) L 12/18/20 05:01 MCV 90 fl (79-97) 12/18/20 05:01 MCH 30 pg (28-32) 12/18/20 05:01 MCHC 33 % (30-34) 12/18/20 05:01 RDW 17.6 % (13.2-15.2) H 12/18/20 05:01 Plt Count 151 K/mm3 (140-440) 12/18/20 05:01 Lymph % (Auto) 4.1 % (13.4-35.0) L 12/16/20 18:59 [place] % (Auto) 5.9 % (0.0-7.3) 12/16/20 18:59 Eos % (Auto) 0.0 % (0.0-4.3) 12/16/20 18:59 Baso % (Auto) 0.2 % (0.0-1.8) 12/16/20 18:59 Lymph # (Auto) 0.8 K/mm3 (1.2-5.4) L 12/16/20 18:59 [place] # (Auto) 1.1 K/mm3 (0.0-0.8) H 12/16/20 18:59 Eos # (Auto) 0.0 K/mm3 (0.0-0.4) 12/16/20 18:59 Baso # (Auto) 0.0 K/mm3 (0.0-0.1) 12/16/20 18:59 Add Manual Diff Complete 12/17/20 07:59 Total Counted 100 12/17/20 07:59 Seg Neutrophils % Transit Planning Manager 12/17/20 07:59 Seg Neuts % (Manual) 98.0 % (40.0-70.0) H 12/17/20 07:59 Lymphocytes % (Manual) 1.0 % (13.4-35.0) L 12/17/20 07:59 Monocytes % (Manual) 1.0 % (0.0-7.3) 12/17/20 07:59 Nucleated RBC % Not Reportable 12/17/20 07:59 Seg Neutrophils # 16.3 K/mm3 (1.8-7.7) H 12/16/20 18:59 Seg Neutrophils # Man 15.2 K/mm3 (1.8-7.7) H 12/17/20 07:59 Band Neutrophils # 0.0 K/mm3 12/17/20 07:59 Lymphocytes # (Manual) 0.2 K/mm3 (1.2-5.4) L 12/17/20 07:59 Abs React Lymphs (Man) 0.0 K/mm3 12/17/20 07:59 Monocytes # (Manual) 0.2 K/mm3 (0.0-0.8) 12/17/20 07:59 Eosinophils # (Manual) 0.0 K/mm3 (0.0-0.4) 12/17/20 07:59 Basophils # (Manual) 0.0 K/mm3 (0.0-0.1) 12/17/20 07:59 Metamyelocytes # 0.0 K/mm3 12/17/20 07:59 Myelocytes # 0.0 K/mm3 12/17/20 07:59 Promyelocytes # 0.0 K/mm3 12/17/20 07:59 Blast Cells # 0.0 K/mm3 12/17/20 07:59 WBC Morphology Not Reportable 12/17/20 07:59 Hypersegmented Neuts Not Reportable 12/17/20 07:59 Hyposegmented Neuts Not Reportable 12/17/20 07:59 Hypogranular Neuts Not Reportable 12/17/20 07:59 Smudge Cells Not Reportable 12/17/20 07:59 Toxic Granulation Not Reportable 12/17/20 07:59 Toxic Vacuolation Not Reportable 12/17/20 07:59 Dohle Bodies Not Reportable 12/17/20 07:59 Pelger-Huet Anomaly Not Reportable 12/17/20 07:59 Dave Rods Not Reportable 12/17/20 07:59 Platelet Estimate Consistent w auto 12/17/20 07:59 Clumped Platelets Not Reportable 12/17/20 07:59 Plt Clumps, EDTA Not Reportable 12/17/20 07:59 Large Platelets Not Reportable 12/17/20 07:59 Giant Platelets Not Reportable 12/17/20 07:59 Platelet Satelliting Not Reportable 12/17/20 07:59 Plt Morphology Comment Not Reportable 12/17/20 07:59 RBC Morphology Not Reportable 12/17/20 07:59 Dimorphic RBCs Not Reportable 12/17/20 07:59 Polychromasia Not Reportable 12/17/20 07:59 Hypochromasia Not Reportable 12/17/20 07:59 Poikilocytosis Not Reportable 12/17/20 07:59 Anisocytosis Not Reportable 12/17/20 07:59 Microcytosis Not Reportable 12/17/20 07:59 Macrocytosis Not Reportable 12/17/20 07:59 Spherocytes Not Reportable 12/17/20 07:59 Pappenheimer Bodies Not Reportable 12/17/20 07:59 Sickle Cells Not Reportable 12/17/20 07:59 Target Cells Not Reportable 12/17/20 07:59 Tear Drop Cells Not Reportable 12/17/20 07:59 Ovalocytes Not Reportable 12/17/20 07:59 Helmet Cells Not Reportable 12/17/20 07:59 [place] Bodies Not Reportable 12/17/20 07:59 Buna Rings Not Reportable 12/17/20 07:59 Lisa Cells Rare 12/17/20 07:59 Bite Cells Not Reportable 12/17/20 07:59 Crenated Cell Not Reportable 12/17/20 07:59 Elliptocytes Few 12/17/20 07:59 Acanthocytes (Spur) Not Reportable 12/17/20 07:59 Rouleaux Not Reportable 12/17/20 07:59 Hemoglobin C Crystals Not Reportable 12/17/20 07:59 Schistocytes Not Reportable 12/17/20 07:59 Malaria parasites Not Reportable 12/17/20 07:59 Ant Bodies Not Reportable 12/17/20 07:59 Hem Pathologist Commnt No 12/17/20 07:59 PT 16.0 Sec. (12.2-14.9) H 12/17/20 07:59 INR 1.30 (0.87-1.13) H 12/17/20 07:59 APTT 26.6 Sec. (24.2-36.6) 12/16/20 18:59 D-Dimer 3183.35 ng/mlDDU (0-234) H 12/16/20 18:59 ABG pH 7.266 pH Units (7.350-7.450) L 12/16/20 19:29 ABG pCO2 28.5 mm Hg 12/16/20 19:29 ABG pO2 72.2 mm Hg (80.0-90.0) L 12/16/20 19:29 ABG HCO3 12.7 mmol/L (20.0-26.0) L 12/16/20 19:29 ABG O2 Saturation 93.4 % (95.0-99.0) L 12/16/20 19:29 ABG O2 Content 14.7 (0.0-44) 12/16/20 19:29 ABG Base Excess -12.9 mmol/L (-2.0-3.0) L 12/16/20 19: ABG Hemoglobin 11.4 gm/dl (12.0-16.0) L 12/16/20 19:29 ABG Carboxyhemoglobin 1.4 % (0.0-5.0) 12/16/20 19: ABG Methemoglobin 0.5 % (0.0-1.5) 12/16/20 19: Oxyhemoglobin 91.6 % (95.0-99.0) L 12/16/20 19:29 FiO2 32 % 12/16/20 19:29 Sodium 149 mmol/L (137-145) H 12/20/20 06:54 Potassium 3.5 mmol/L (3.6-5.0) L D 12/20/20 06:54 Chloride 123.1 mmol/L (98-107) H 12/20/20 06:54 Carbon Dioxide 14 mmol/L (22-30) L 12/20/20 06:54 Anion Gap 15 mmol/L 12/20/20 06:54 BUN 86 mg/dL (7-17) H 12/20/20 06:54 Creatinine 2.2 mg/dL (0.6-1.2) H 12/20/20 06:54 Estimated GFR 21 ml/min 12/20/20 06:54 BUN/Creatinine Ratio 39 % 12/20/20 06:54 Glucose 109 mg/dL (65-100) H 12/20/20 06:54 POC Glucose 143 mg/dL (70-105) H 12/19/20 08:01 Lactic Acid 1.90 mmol/L (0.7-2.0) 12/16/20 22:10 Calcium 7.9 mg/dL (8.4-10.2) L 12/20/20 06:54 Ferritin 559.4 ng/mL (10.0-200.0) H 12/16/20 21:03 Total Bilirubin 0.30 mg/dL (0.1-1.2) 12/16/20 18:59 Direct Bilirubin < 0.2 mg/dL (0-0.2) 12/16/20 18:59 Indirect Bilirubin 0.1 mg/dL 12/16/20 18:59 AST 21 units/L (5-40) 12/16/20 18:59 ALT 70 units/L (7-56) H 12/16/20 18:59 Alkaline Phosphatase 94 units/L (35-129) 12/16/20 18:59 Lactate Dehydrogenase 249 units/L (91-180) H 12/16/20 21:03 Troponin T 0.070 ng/mL (0.00-0.029) H D 12/17/20 10:15 C-Reactive Protein 11.30 mg/dL (0.00-1.30) H 12/16/20 21:03 NT-Pro-B Natriuret Pep 1116 pg/mL (0-900) H 12/16/20 18:59 Total Protein 5.7 g/dL (6.3-8.2) L 12/16/20 18:59 Albumin 3.1 g/dL (3.9-5) L 12/16/20 18:59 Albumin/Globulin Ratio 1.2 % 12/16/20 18:59 Triglycerides 104 mg/dL (2-149) 12/16/20 18:59 Cholesterol 99 mg/dL (50-199) 12/16/20 18:59 LDL Cholesterol Direct 59 mg/dL (50-130) 12/16/20 18:59 HDL Cholesterol 24 mg/dL (40-59) L 12/16/20 18:59 Cholesterol/HDL Ratio 4.12 % 12/16/20 18:59 Procalcitonin 0.99 ng/mL (<0.15) 12/16/20 21:03 TSH 2.770 mlU/mL (0.270-4.200) 12/20/20 Unknown Urine Color Yellow (Yellow) 12/16/20 16:51 Urine Turbidity Turbid (Clear) 12/16/20 16:51 Urine pH 5.0 (5.0-7.0) 12/16/20 16:51 Ur Specific [place] 1.010 (1.003-1.030) 12/16/20 16:51 Urine Protein 30 mg/dl mg/dL (Negative) 12/16/20 16:51 Urine Glucose (UA) Neg mg/dL (Negative) 12/16/20 16:51 Urine Ketones Neg mg/dL (Negative) 12/16/20 16:51 Urine Blood Mod (Negative) 12/16/20 16:51 Urine Nitrite Neg (Negative) 12/16/20 16:51 Urine Bilirubin Neg (Negative) 12/16/20 16:51 Urine Urobilinogen < 2.0 mg/dL (<2.0) 12/16/20 16:51 Ur Leukocyte Esterase Lg (Negative) 12/16/20 16:51 Urine WBC (Auto) > 182.0 /HPF (0.0-6.0) H 12/16/20 16:51 Urine RBC (Auto) 8.0 /HPF (0.0-6.0) 12/16/20 16:51 U Epithel Cells (Auto) 2.0 /HPF (0-13.0) 12/16/20 16:51 Urine Bacteria (Auto) 2+ /HPF (Negative) 12/16/20 16:51 Urine WBC Clumps 3+ /HPF 12/16/20 16:51 Urine Mucus 2+ /HPF 12/16/20 16:51 Urine Yeast (Budding) 3+ /HPF 12/16/20 16:51 Nasal Screen MRSA (PCR) Negative (Negative) 12/17/20 16:10 Random Vancomycin 5.4 ug/mL (0-40.0) 12/19/20 05:05 C. difficile Tox (PCR) Negative (Negative) 12/18/20 14:22 Coronavirus (PCR) Negative (Negative) 12/17/20 Unknown Microbiology: Microbiology 12/18/20 Unknown Urine,Catheterized - Indwelling Catheter Urine Culture - Final 12/16/20 18:59 Peripheral/Venous Blood Culture - Preliminary NO GROWTH AFTER 72 HOURS 12/16/20 18:59 Peripheral/Venous Blood Culture - Preliminary NO GROWTH AFTER 72 HOURS Dexter/IV: Voiding Method Indwelling Catheter Active Medications - Current Medications Current Medications: Generic Name Dose Route Start Last Admin Trade Name Freq PRN Reason Stop Dose Admin Acetaminophen 650 mg 12/16/20 22:02 12/18/20 17:53 Acetaminophen 325 Mg Tab PO 650 mg Q4H PRN Administration Pain MILD(1-3)/Fever >100.5/BUCKLEY Hydrocodone Bitart/Acetaminophen 1 each 12/20/20 06:30 Hydrocodone/Acetaminophen 5-325 Mg Tab PO Q4H PRN Pain, Moderate (4-6) Albuterol/Ipratropium 1 ampul 12/19/20 14:00 12/20/20 14:33 Ipratropium/Albuterol Sulfate 3 Ml Ampul.Neb IH 1 ampul Q6HRT ZENIA Administration Artificial Tears 1 drops 12/19/20 22:00 12/19/20 22:42 Hypromellose 0.5% Ophth Soln 15 Ml OU 1 drops QHS ZENIA Administration Cholecalciferol 5,000 unit 12/19/20 14:30 12/20/20 10:45 Cholecalciferol (Vit D3) 5,000 Unit Tab PO 5,000 unit QDAY ZENIA Administration Escitalopram Oxalate 20 mg 12/19/20 14:30 12/20/20 09:41 Escitalopram 10 Mg Tab PO 20 mg DAILY ZENIA Administration Heparin Sodium (Porcine) 5,000 unit 12/17/20 06:00 12/20/20 16:00 Heparin 5,000 Unit/1 Ml Vial SUB-Q 5,000 unit Q8HR ZENIA Administration Hydroxyzine Pamoate 25 mg 12/21/20 10:00 Hydroxyzine Pamoate 25 Mg Cap PO DAILY ZENIA Cefepime HCl 2 gm in 100 mls @ 200 mls/hr 12/17/20 10:00 12/20/20 09:36 Cefepime/Ns 2 Gm/100 Ml IV 12/23/20 10:29 200 mls/hr Q24H ZENIA Administration Protocol Dextrose/Sodium Chloride 1,000 mls @ 125 mls/hr 12/17/20 14:00 12/20/20 16:04 D5/0.45ns IV 125 mls/hr DIRECT ZENIA Administration Levothyroxine Sodium 50 mcg 12/19/20 13:00 12/20/20 09:41 Levothyroxine 50 Mcg Tab PO 50 mcg DAILY ZENIA Administration Loperamide HCl 2 mg 12/19/20 15:00 Loperamide 2 Mg Cap PO Q8H PRN Diarrhea Lorazepam 0.25 mg 12/18/20 10:46 12/19/20 14:03 Lorazepam 0.5 Mg Tab PO 0.25 mg Q8H PRN Administration Agitation Magnesium Hydroxide 30 ml 12/16/20 22:02 Magnesium Hydroxide (Mom) Oral Liqd Udc PO Q4H PRN Constipation Midodrine 10 mg 12/19/20 14:00 12/20/20 16:00 Midodrine 5 Mg Tab PO 10 mg TID ZENIA Administration Mirtazapine 7.5 mg 12/19/20 22:00 12/19/20 21:36 Mirtazapine 15 Mg Tab PO 7.5 mg QHS ZENIA Administration Ondansetron HCl 4 mg 12/16/20 22:02 Ondansetron 4 Mg/2 Ml Inj IV Q8H PRN Nausea And Vomiting Risperidone 0.5 mg 12/19/20 14:30 12/20/20 09:39 Risperidone 0.25 Mg Tab PO 0.5 mg BID ZENIA Administration Ropinirole HCl 5 mg 12/19/20 15:00 12/20/20 16:01 Ropinirole 1 Mg Tab PO 5 mg TID ZENIA Administration Sodium Chloride 10 ml 12/17/20 10:00 12/20/20 16:09 Sodium Chloride 0.9% 10 Ml Flush Syringe IV Not Given BID ZENIA Sodium Chloride 10 ml 12/16/20 22:02 Sodium Chloride 0.9% 10 Ml Flush Syringe IV PRN PRN LINE FLUSH Sodium Chloride 1 applic 12/19/20 13:00 12/19/20 21:36 [place] Saline Nasal Gel 14.1 Gm NS 1 applic BID ZENIA Administration Nutrition/Malnutrition Assess - Dietary Evaluation Nutrition/Malnutrition Findings: Nutrition Notes Start: 12/17/20 10:35 Freq: Status: Active Protocol: Document 12/20/20 09:03 AT (Rec: 12/20/20 09:19 AT [id number]) Co-Sign 12/20/20 09:03 MK Nutrition Notes Initial or Follow up Reassessment Current Diagnosis Acute Kidney Injury,COPD, Decubitus(Pressure Ulcer), Sepsis Other Pertinent Diagnosis RLL pneu, r/o COVID-19, ARF, Dementia Current Diet Pureed Diet with thin/regular liquids Labs/Tests Na 149 K 3.5 BUN 86 Cr 2.2 Ca 7.9 Pertinent Medications D51/2NS at 125 mL/hr Remeron Synthroid Vitamin D3 Height 5 ft 7 in Weight 89 kg [place] Body Weight (kg) 61.36 BMI 30.7 Weight Status Obese Subjective/Other Information Follow up for intakes, renal function, and need for HD. Pt' s renal function appears to be improving. Per chart, pt has consumed 0% of meals x 4 days. Per RN, pt consumed applesauce for breakfast. Manager Cleaning recommends nutrition support if intake does not improve. RN states that pt is discharging to hospice care. Percent of energy/protein needs met: 0%/0% Burn Absent Trauma Absent Skin Integrity/Comment Pt with pressure ulcers Current % PO Negligible Minimum of two criteria No Reduced Chassis Mechanic Strength Measurably Reduced (severe) #2 Nutrition Diagnosis Inadequate oral intake Etiology advanced age As Evidenced by Signs and Symptoms pt consuming 0% of meals x 4 days and negligible amounts for breakfast #1 Nutrition Diagnosis Predicted suboptimal energy intake Diagnosis Progress(for reassessment Resolved documentation) Is patient on ventilator? No Is Patient Ambulatory and/or Out of Bed No REE-([facility]-confined to bed) 1648.248 Kcal/Kg value to use for calculation 14 Approximate Energy Requirements Using 1246 kcal/Kg Calculation Used for Recommendations Kcal/kg Additional Notes PRO needs: 60-90g (0.8-1.2g/kg for YULI AdBW 75 kg) Fluid needs: 1 mL/kcal or per MD Nutrition Intervention Change Diet Order: Continue Pureed Diet with thin /regular liquids Add Supplement/Snack (indicate name/kcal Ensure Enlive TID (Vanilla, /protein ) Aromas) Provides kCal: 1,050 Provides Protein (gm) 60 Goal #1 PO tolerance Goal #2 Meet at least 75% of estimated energy and protein needs via diet and ONS Goal #3 Wound healing Anticipated Discharge Needs: Unable to determine at this time Follow-Up By: 12/24/20 Additional Comments F/U for intakes, ONS tolerance , POC
--- NOTE | 2020-12-20 18:10 | Progress Note ---
Assessment and Plan Imp: 1. UTI 2. RLL pneumonia, ? aspiration 3. Severe sepsis 4. Severe volume depletion 5. Hypernatremia 6. YULI 7. Metabolic encephalopathy 8. Covid-19 08/2020 at [facility] Rec: 1. Covid-19 episode was 08/2020 at [facility]; PCR negative here 2. ABX per ID 3. Diet per ST 4. Further plans per IMS; stable pulm-dubose No family present Subjective Date of service: 12/20/20 Principal diagnosis: Pneumonia Interval history: No events. Arouses but nonverbal, moans only. Active Medications Acetaminophen (Acetaminophen 325 Mg Tab) 650 mg PO Q4H PRN PRN Reason: Pain MILD(1-3)/Fever >100.5/[place] Last Admin: 12/18/20 17:53 Dose: 650 mg Documented by: Hydrocodone Bitart/Acetaminophen (Hydrocodone/Acetaminophen 5-325 Mg Tab) 1 each PO Q4H PRN PRN Reason: Pain, Moderate (4-6) Albuterol/Ipratropium (Ipratropium/Albuterol Sulfate 3 Ml Ampul.Neb) 1 ampul IH Q6HRT [facility] Last Admin: 12/20/20 21:05 Dose: 1 ampul Documented by: Artificial Tears (Hypromellose 0.5% Ophth Soln 15 Ml) 1 drops OU QHS [facility] Last Admin: 12/20/20 21:37 Dose: 1 drops Documented by: Cholecalciferol (Cholecalciferol (Vit D3) 5,000 Unit Tab) 5,000 unit PO QDAY [facility] Last Admin: 12/20/20 10:45 Dose: 5,000 unit Documented by: Escitalopram Oxalate (Escitalopram 10 Mg Tab) 20 mg PO DAILY [facility] Last Admin: 12/20/20 09:41 Dose: 20 mg Documented by: Heparin Sodium (Porcine) (Heparin 5,000 Unit/1 Ml Vial) 5,000 unit SUB-Q Q8HR [facility] Last Admin: 12/20/20 21:34 Dose: 5,000 unit Documented by: Hydroxyzine Pamoate (Hydroxyzine Pamoate 25 Mg Cap) 25 mg PO DAILY [facility] Cefepime HCl (Cefepime/Ns 2 Gm/100 Ml) 2 gm in 100 mls @ 200 mls/hr IV Q24H [facility]; Protocol Stop: 12/23/20 10:29 Last Admin: 12/20/20 09:36 Dose: 200 mls/hr Documented by: Dextrose/Sodium Chloride (D5/0.45ns) 1,000 mls @ 125 mls/hr IV DIRECT [facility] Last Admin: 12/20/20 16:04 Dose: 125 mls/hr Documented by: Levothyroxine Sodium (Levothyroxine 50 Mcg Tab) 50 mcg PO DAILY [facility] Last Admin: 12/20/20 09:41 Dose: 50 mcg Documented by: Loperamide HCl (Loperamide 2 Mg Cap) 2 mg PO Q8H PRN PRN Reason: Diarrhea Lorazepam (Lorazepam 0.5 Mg Tab) 0.25 mg PO Q8H PRN PRN Reason: Agitation Last Admin: 12/19/20 14:03 Dose: 0.25 mg Documented by: Magnesium Hydroxide (Magnesium Hydroxide (Mom) Oral Liqd Udc) 30 ml PO Q4H PRN PRN Reason: Constipation Midodrine (Midodrine 5 Mg Tab) 10 mg PO TID [facility] Last Admin: 12/20/20 21:34 Dose: 10 mg Documented by: Mirtazapine (Mirtazapine 15 Mg Tab) 7.5 mg PO QHS [facility] Last Admin: 12/20/20 21:38 Dose: 7.5 mg Documented by: Ondansetron HCl (Ondansetron 4 Mg/2 Ml Inj) 4 mg IV Q8H PRN PRN Reason: Nausea And Vomiting Risperidone (Risperidone 0.25 Mg Tab) 0.5 mg PO BID [facility] Last Admin: 12/20/20 21:34 Dose: 0.5 mg Documented by: Ropinirole HCl (Ropinirole 1 Mg Tab) 5 mg PO TID [facility] Last Admin: 12/20/20 21:35 Dose: 5 mg Documented by: Sodium Chloride (Sodium Chloride 0.9% 10 Ml Flush Syringe) 10 ml IV BID [facility] Last Admin: 12/20/20 21:35 Dose: 10 ml Documented by: Sodium Chloride (Sodium Chloride 0.9% 10 Ml Flush Syringe) 10 ml IV PRN PRN PRN Reason: LINE FLUSH Sodium Chloride ([place] Saline Nasal Gel 14.1 Gm) 1 applic NS BID [facility] Last Admin: 12/20/20 21:40 Dose: 1 applic Documented by: Objective Vital Signs - 12hr 05/12/20/20 12/20/20 07:38 14:33 16:06 Temperature 97.6 F Pulse Rate 123 H Pulse Rate [ 78 121 H Bilateral Throughout] Respiratory 16 Rate Respiratory 18 18 Rate [Bilateral Throughout] Blood Pressure 128/64 O2 Sat by Pulse 94 97 Oximetry Constitutional: no acute distress, alert Eyes: non-icteric ENT: oropharynx moist Neck: supple Effort: normal Ascultation: Bilateral: clear Cardiovascular: other (RR, tachy, no mrg) Gastrointestinal: normoactive bowel sounds, soft, non-tender, non-distended Extremities: no cyanosis, no edema, pink and warm Neurologic: unable to assess Psychiatric: other (unable to assess) CBC and BMP: 12/18/20 05:01 12/20/20 06:54 ABG, PT/INR, D-dimer: ABG ABG pH 7.266 pH Units (7.350-7.450) L 12/16/20 19:29 ABG pCO2 28.5 mm Hg 12/16/20 19:29 ABG pO2 72.2 mm Hg (80.0-90.0) L 12/16/20 19:29 ABG O2 Saturation 93.4 % (95.0-99.0) L 12/16/20 19:29 PT/INR, D-dimer PT 16.0 Sec. (12.2-14.9) H 12/17/20 07:59 INR 1.30 (0.87-1.13) H 12/17/20 07:59 D-Dimer 3183.35 ng/mlDDU (0-234) H 12/16/20 18:59 Abnormal lab findings: Abnormal Labs 12/16/20 12/16/20 12/16/20 16:51 18:51 18:59 WBC 18.2 H RBC 3.60 L Hgb Hct RDW 18.0 H Lymph % (Auto) 4.1 L Lymph # (Auto) 0.8 L [place] # (Auto) 1.1 H Seg Neutrophils % 89.8 H Seg Neuts % (Manual) Lymphocytes % (Manual) Seg Neutrophils # 16.3 H Seg Neutrophils # Man Lymphocytes # (Manual) PT INR D-Dimer ABG pH ABG pO2 ABG HCO3 ABG O2 Saturation ABG Base Excess ABG Hemoglobin Oxyhemoglobin Sodium Potassium Chloride Carbon Dioxide BUN Creatinine Glucose POC Glucose 160 H Calcium Ferritin ALT Lactate Dehydrogenase Troponin T C-Reactive Protein NT-Pro-B Natriuret Pep Total Protein Albumin HDL Cholesterol Urine WBC (Auto) > 182.0 H 12/16/20 12/16/20 12/16/20 18:59 18:59 18:59 WBC RBC Hgb Hct RDW Lymph % (Auto) Lymph # (Auto) [place] # (Auto) Seg Neutrophils % Seg Neuts % (Manual) Lymphocytes % (Manual) Seg Neutrophils # Seg Neutrophils # Man Lymphocytes # (Manual) PT INR D-Dimer 3183.35 H ABG pH ABG pO2 ABG HCO3 ABG O2 Saturation ABG Base Excess ABG Hemoglobin Oxyhemoglobin Sodium Potassium 5.2 H Chloride Carbon Dioxide 13 L BUN 191 H Creatinine 5.8 H Glucose 187 H POC Glucose Calcium Ferritin ALT 70 H Lactate Dehydrogenase Troponin T 0.113 H* C-Reactive Protein NT-Pro-B Natriuret Pep 1116 H Total Protein 5.7 L Albumin 3.1 L HDL Cholesterol 24 L Urine WBC (Auto) 12/16/20 12/16/20 12/16/20 19:29 21:03 21:03 WBC RBC Hgb Hct RDW Lymph % (Auto) Lymph # (Auto) [place] # (Auto) Seg Neutrophils % Seg Neuts % (Manual) Lymphocytes % (Manual) Seg Neutrophils # Seg Neutrophils # Man Lymphocytes # (Manual) PT INR D-Dimer ABG pH 7.266 L ABG pO2 72.2 L ABG HCO3 12.7 L ABG O2 Saturation 93.4 L ABG Base Excess -12.9 L ABG Hemoglobin 11.4 L Oxyhemoglobin 91.6 L Sodium Potassium Chloride Carbon Dioxide BUN Creatinine Glucose 172 H POC Glucose Calcium Ferritin 559.4 H ALT Lactate Dehydrogenase 249 H Troponin T C-Reactive Protein 11.30 H NT-Pro-B Natriuret Pep Total Protein Albumin HDL Cholesterol Urine WBC (Auto) 12/17/20 12/17/20 12/17/20 06:28 07:59 07:59 WBC 15.5 H RBC 3.45 L Hgb Hct RDW 17.4 H Lymph % (Auto) Lymph # (Auto) [place] # (Auto) Seg Neutrophils % Seg Neuts % (Manual) 98.0 H Lymphocytes % (Manual) 1.0 L Seg Neutrophils # Seg Neutrophils # Man 15.2 H Lymphocytes # (Manual) 0.2 L PT 16.0 H INR 1.30 H D-Dimer ABG pH ABG pO2 ABG HCO3 ABG O2 Saturation ABG Base Excess ABG Hemoglobin Oxyhemoglobin Sodium Potassium Chloride Carbon Dioxide BUN Creatinine Glucose POC Glucose 167 H Calcium Ferritin ALT Lactate Dehydrogenase Troponin T C-Reactive Protein NT-Pro-B Natriuret Pep Total Protein Albumin HDL Cholesterol Urine WBC (Auto) 12/17/20 12/17/20 12/17/20 07:59 10:15 11:34 WBC RBC Hgb Hct RDW Lymph % (Auto) Lymph # (Auto) [place] # (Auto) Seg Neutrophils % Seg Neuts % (Manual) Lymphocytes % (Manual) Seg Neutrophils # Seg Neutrophils # Man Lymphocytes # (Manual) PT INR D-Dimer ABG pH ABG pO2 ABG HCO3 ABG O2 Saturation ABG Base Excess ABG Hemoglobin Oxyhemoglobin Sodium 147 H D Potassium Chloride 119.5 H Carbon Dioxide 10 L BUN 152 H Creatinine 4.2 H Glucose 168 H POC Glucose 116 H Calcium 7.7 L Ferritin ALT Lactate Dehydrogenase Troponin T 0.070 H D C-Reactive Protein NT-Pro-B Natriuret Pep Total Protein Albumin HDL Cholesterol Urine WBC (Auto) 12/17/20 12/17/20 12/18/20 17:43 23:22 05:01 WBC 11.9 H RBC 3.06 L Hgb 9.2 L Hct 27.5 L RDW 17.6 H Lymph % (Auto) Lymph # (Auto) [place] # (Auto) Seg Neutrophils % Seg Neuts % (Manual) Lymphocytes % (Manual) Seg Neutrophils # Seg Neutrophils # Man Lymphocytes # (Manual) PT INR D-Dimer ABG pH ABG pO2 ABG HCO3 ABG O2 Saturation ABG Base Excess ABG Hemoglobin Oxyhemoglobin Sodium Potassium Chloride Carbon Dioxide BUN Creatinine Glucose POC Glucose 123 H 136 H Calcium Ferritin ALT Lactate Dehydrogenase Troponin T C-Reactive Protein NT-Pro-B Natriuret Pep Total Protein Albumin HDL Cholesterol Urine WBC (Auto) 12/18/20 12/18/20 12/19/20 05:01 05:37 04:41 WBC RBC Hgb Hct RDW Lymph % (Auto) Lymph # (Auto) [place] # (Auto) Seg Neutrophils % Seg Neuts % (Manual) Lymphocytes % (Manual) Seg Neutrophils # Seg Neutrophils # Man Lymphocytes # (Manual) PT INR D-Dimer ABG pH ABG pO2 ABG HCO3 ABG O2 Saturation ABG Base Excess ABG Hemoglobin Oxyhemoglobin Sodium 147 H Potassium Chloride 121.6 H Carbon Dioxide 11 L BUN 119 H Creatinine 3.1 H Glucose 124 H POC Glucose 122 H 200 H Calcium 8.2 L Ferritin ALT Lactate Dehydrogenase Troponin T C-Reactive Protein NT-Pro-B Natriuret Pep Total Protein Albumin HDL Cholesterol Urine WBC (Auto) 12/19/20 12/19/20 12/19/20 05:36 08:01 10:50 WBC RBC Hgb Hct RDW Lymph % (Auto) Lymph # (Auto) [place] # (Auto) Seg Neutrophils % Seg Neuts % (Manual) Lymphocytes % (Manual) Seg Neutrophils # Seg Neutrophils # Man Lymphocytes # (Manual) PT INR D-Dimer ABG pH ABG pO2 ABG HCO3 ABG O2 Saturation ABG Base Excess ABG Hemoglobin Oxyhemoglobin Sodium 148 H Potassium Chloride 123.8 H Carbon Dioxide 11 L BUN 99 H Creatinine 2.6 H Glucose POC Glucose 220 H 143 H Calcium 7.9 L Ferritin ALT Lactate Dehydrogenase Troponin T C-Reactive Protein NT-Pro-B Natriuret Pep Total Protein Albumin HDL Cholesterol Urine WBC (Auto) 12/20/20 06:54 WBC RBC Hgb Hct RDW Lymph % (Auto) Lymph # (Auto) [place] # (Auto) Seg Neutrophils % Seg Neuts % (Manual) Lymphocytes % (Manual) Seg Neutrophils # Seg Neutrophils # Man Lymphocytes # (Manual) PT INR D-Dimer ABG pH ABG pO2 ABG HCO3 ABG O2 Saturation ABG Base Excess ABG Hemoglobin Oxyhemoglobin Sodium 149 H Potassium 3.5 L D Chloride 123.1 H Carbon Dioxide 14 L BUN 86 H Creatinine 2.2 H Glucose 109 H POC Glucose Calcium 7.9 L Ferritin ALT Lactate Dehydrogenase Troponin T C-Reactive Protein NT-Pro-B Natriuret Pep Total Protein Albumin HDL Cholesterol Urine WBC (Auto) Chest x-ray: report reviewed, image reviewed Allied health notes reviewed: nursing
[2020-12-20] MEDS: AYR SALINE NASAL GEL 14.1 GM NS SCH ×3 (21:35→21:40)
[2020-12-20] MEDS: HYPROMELLOSE 0.5% OPHTH SOLN 15 ML OU SCH (21:37)
[2020-12-20] MEDS: MIRTAZAPINE 15 MG TAB PO SCH (21:38)
[2020-12-21] MEDS: IPRATROPIUM/ALBUTEROL SULFATE 3 ML AMPUL.NEB IH SCH ×4 (03:21→19:55)
[2020-12-21] MEDS: HEPARIN 5,000 UNIT/1 ML VIAL SUB-Q SCH ×2 (05:09→17:06)
[2020-12-21] MEDS: rOPINIRole 1 MG TAB PO SCH ×3 (09:50→21:20)
[2020-12-21] MEDS: MIDODRINE 5 MG TAB PO SCH ×3 (09:51→20:56)
[2020-12-21] MEDS: CHOLECALCIFEROL (VIT D3) 5,000 UNIT TAB PO SCH (09:53)
[2020-12-21] MEDS: LEVOTHYROXINE 50 MCG TAB PO SCH (09:53)
[2020-12-21] MEDS: risperiDONE 0.25 MG TAB PO SCH (09:54)
[2020-12-21] MEDS ORDERED: hydrOXYzine PAMOATE 25 MG CAP PO SCH (10:00)
[2020-12-21] MEDS: ESCITALOPRAM 10 MG TAB PO SCH (10:14)
[2020-12-21] MEDS: CEFEPIME/NS 2 GM/100 ML 2 GM/100 ML BAG IV SCH (10:15)
[2020-12-21] MEDS: AYR SALINE NASAL GEL 14.1 GM NS SCH (10:25)
--- NOTE | 2020-12-21 12:06 | Progress Note ---
Subjective - Reason for Consult Consult date: 12/21/20 Reason for consult: MHE Requesting physician: LUIGI DAMIAN - Chief Complaint Chief complaint: PSYCH HPI Patient in room, does not appear to sense presence of others, constantly murmurs and unable to respond to questions. REVIEW OF SYSTEMS ROS cannot be reliably obtained from the patient due to her confusion MENTAL STATUS EXAMINATION General Appearance and Behavior: Age appropriate, good hygiene, wearing appropriate clothes, good eye contact, uncooperative with questioning. Cooperation: Withdrawn Psychomotor Behavior: unremarkable and within normal limits Mood: Neutral Affect and affective range: Flat Thought Process:N/A Thought Content: N/A Speech: murmuring Intellectual Functioning: N/A Suicidal Ideation: N/A l Homicidal Ideation: N/A Impulse Control: Impaired Insight and Judgment: Impaired Memory: N/A Attention: Normal, Orientation: Alert Diagnoses: Assessment and Plan - Patient Problems (1) Altered mental state Current Visit: Yes Status: Acute R41.82 Treatment Plan MEDICATIONS: Risks, benefits and alternatives of medications discussed with the patient, questions answered and consent obtained from patient. PSYCHOTHERAPY: Supportive psychotherapy provided MEDICAL: Per primary team DELIRIUM PRECAUTIONS: Please re-orient patient frequently, keep lights on during the day, and minimize benzodiazepines and opiates as these medications could worsen patient's confusion. TRUSS BUILDER: DISPOSITION: Do Not Recommend acute inpatient psychiatric hospitalization at this time. Case discussed with Dr. Roman who agrees with current disposition LEGAL STATUS: 1013 FOLLOW-UP: Will sign off Thank you for the consult. Please contact with any questions and/or concerns. Mental Status Exam - Vital signs Last Vital Signs Temp 98.7 F 12/21/20 04:32 Pulse 83 12/21/20 07:43 Resp 18 12/21/20 07:43 BP 119/56 12/21/20 04:32 Pulse Ox 97 12/21/20 07:43 Assessment and Plan - Patient Problems (1) Altered mental state Current Visit: Yes Status: Acute
--- NOTE | 2020-12-21 13:55 | Progress Note ---
Assessment and Plan Cultures: Blood culture 12/16/2020 no growth today MRSA PCR indeterminate SARS-CoV-2 PCR negative Urine culture mixed filiberto Assessment: 85-year-old female with known history of COPD, dementia and a recent history of COVID-19 who is resident of a intermediate, admitted on 12/17/2019 secondary to worsening shortness of breath and tachypnea: #Sepsis with initial septic shock: Leukocytosis improving; likely secondary to pneumonia +/- UTI. Currently off pressors. #Right-sided pneumonia: Likely healthcare associated pneumonia versus COVID-19 pneumonia. #UTI: Urinalysis consistent with UTI. Urine culture mixed filiberto. #History of COVID-19 infection: In August 2020 treated at [facility]. Noted elevated markers, CRP 11.3 #YULI: Initial creatinine 5.8. Improving #Transaminitis: Mild, likely secondary to sepsis. Recommendations: -Stop cefepime and vancomycin -Start Augmentin 500 mg p.o. twice daily and doxycycline 100 mg p.o. twice daily total 7 days until 12/23 Okay to discharge from ID standpoint We will sign off Rianna Bajwa MD Infectious Diseases [employer] [facility] M [phone] O [phone] Subjective Date of service: 12/21/20 Principal diagnosis: Pneumonia Interval history: Remains confused, mildly agitated, no fever Objective - Exam Narrative Exam: General appearance: Alert, debilitated, confused Eyes: anicteric sclerae, moist conjunctivae; no lid-lag; PERRLA HENT: Normocephalic, Atraumatic; normal external ears, nares open, oropharynx limited Neck: supple, tracheal midline, no JVD Lungs: Clear to auscultation bilaterally CV: RRR no murmur Abdomen: Soft, nontender Extremities: no edema, no cyanosis Skin: No rash. Psych: Mildly agitated Neuro: Alert, confused, does not follow commands - Constitutional Vitals: Vital Signs Temp Pulse Resp BP Pulse Ox 98.0 F 118 H 18 148/75 97 12/21/20 12:46 12/21/20 12:46 12/21/20 07:43 12/21/20 12:46 12/21/20 12:46 Temperature -Last 24 Hours Temperature 98.0 F Temperature 98.7 F Temperature 97.6 F Temperature 97.6 F - Labs CBC & Chem 7: 12/18/20 05:01 12/20/20 06:54
[2020-12-21] MEDS ORDERED: AMOXICILLIN/K CLAV 875/125MG TAB PO SCH (14:00)
[2020-12-21] MEDS ORDERED: DOXYCYCLINE 100 MG CAP PO SCH (14:00)
--- NOTE | 2020-12-21 15:36 | Progress Note ---
Assessment and Plan Imp: 1. UTI 2. RLL pneumonia, ? aspiration 3. Severe sepsis 4. Severe volume depletion 5. Hypernatremia 6. YULI 7. Metabolic encephalopathy 8. Covid-19 08/2020 at [facility] Rec: 1. Covid-19 episode was 08/2020 at [facility]; PCR negative here 2. ABX per ID 3. Diet per ST 4. Further plans per IMS; stable pulm-dubose; note plans for hospice so signing off No family present Subjective Date of service: 12/21/20 Principal diagnosis: Pneumonia Interval history: No events. Arouses but nonverbal, moans only. Active Medications Acetaminophen (Acetaminophen 325 Mg Tab) 650 mg PO Q4H PRN PRN Reason: Pain MILD(1-3)/Fever >100.5/BUCKLEY Last Admin: 12/18/20 17:53 Dose: 650 mg Documented by: Hydrocodone Bitart/Acetaminophen (Hydrocodone/Acetaminophen 5-325 Mg Tab) 1 each PO Q4H PRN PRN Reason: Pain, Moderate (4-6) Last Admin: 12/20/20 22:20 Dose: 1 each Documented by: Albuterol/Ipratropium (Ipratropium/Albuterol Sulfate 3 Ml Ampul.Neb) 1 ampul IH Q6HRT [facility] Last Admin: 12/21/20 14:02 Dose: Not Given Documented by: Amoxicillin/Clavulanate Potassium (Amoxicillin/K Clav 875/125mg Tab) 1 each PO Q12HR ZENIA; Protocol Artificial Tears (Hypromellose 0.5% Ophth Soln 15 Ml) 1 drops OU QHS ZENIA Last Admin: 12/20/20 21:37 Dose: 1 drops Documented by: Cholecalciferol (Cholecalciferol (Vit D3) 5,000 Unit Tab) 5,000 unit PO QDAY [facility] Last Admin: 12/21/20 09:53 Dose: 5,000 unit Documented by: Doxycycline Hyclate (Doxycycline 100 Mg Cap) 100 mg PO BID ZENIA; Protocol Escitalopram Oxalate (Escitalopram 10 Mg Tab) 20 mg PO DAILY [facility] Last Admin: 12/21/20 10:14 Dose: 20 mg Documented by: Heparin Sodium (Porcine) (Heparin 5,000 Unit/1 Ml Vial) 5,000 unit SUB-Q Q8HR ZENIA Last Admin: 12/21/20 05:09 Dose: 5,000 unit Documented by: Hydroxyzine Pamoate (Hydroxyzine Pamoate 25 Mg Cap) 25 mg PO DAILY [facility] Last Admin: 12/21/20 09:53 Dose: 25 mg Documented by: Dextrose/Sodium Chloride (D5/0.45ns) 1,000 mls @ 125 mls/hr IV DIRECT [facility] Last Admin: 12/20/20 16:04 Dose: 125 mls/hr Documented by: Levothyroxine Sodium (Levothyroxine 50 Mcg Tab) 50 mcg PO DAILY [facility] Last Admin: 12/21/20 09:53 Dose: 50 mcg Documented by: Loperamide HCl (Loperamide 2 Mg Cap) 2 mg PO Q8H PRN PRN Reason: Diarrhea Lorazepam (Lorazepam 0.5 Mg Tab) 0.25 mg PO Q8H PRN PRN Reason: Agitation Last Admin: 12/19/20 14:03 Dose: 0.25 mg Documented by: Magnesium Hydroxide (Magnesium Hydroxide (Mom) Oral Liqd Udc) 30 ml PO Q4H PRN PRN Reason: Constipation Midodrine (Midodrine 5 Mg Tab) 10 mg PO TID [facility] Last Admin: 12/21/20 09:51 Dose: 10 mg Documented by: Mirtazapine (Mirtazapine 15 Mg Tab) 7.5 mg PO QHS [facility] Last Admin: 12/20/20 21:38 Dose: 7.5 mg Documented by: Ondansetron HCl (Ondansetron 4 Mg/2 Ml Inj) 4 mg IV Q8H PRN PRN Reason: Nausea And Vomiting Risperidone (Risperidone 0.25 Mg Tab) 0.5 mg PO BID [facility] Last Admin: 12/21/20 09:54 Dose: 0.5 mg Documented by: Ropinirole HCl (Ropinirole 1 Mg Tab) 5 mg PO TID [facility] Last Admin: 12/21/20 09:50 Dose: 5 mg Documented by: Sodium Chloride (Sodium Chloride 0.9% 10 Ml Flush Syringe) 10 ml IV BID [facility] Last Admin: 12/21/20 09:54 Dose: 10 ml Documented by: Sodium Chloride (Sodium Chloride 0.9% 10 Ml Flush Syringe) 10 ml IV PRN PRN PRN Reason: LINE FLUSH Sodium Chloride (Roby Saline Nasal Gel 14.1 Gm) 1 applic NS BID [facility] Last Admin: 12/21/20 10:25 Dose: 1 applic Documented by: Objective Vital Signs - 12hr 12/21/20 12/21/20 12/21/20 04:32 07:43 08:00 Temperature 98.7 F Pulse Rate 114 H 118 H Pulse Rate [ 83 Bilateral Throughout] Respiratory 16 Rate Respiratory 18 Rate [Bilateral Throughout] Blood Pressure 119/56 Blood Pressure [Right] O2 Sat by Pulse 96 97 Oximetry 12/21/20 12/21/20 12:00 12:46 Temperature 98.0 F Pulse Rate 119 H 118 H Pulse Rate [ Bilateral Throughout] Respiratory Rate Respiratory Rate [Bilateral Throughout] Blood Pressure Blood Pressure 148/75 [Right] O2 Sat by Pulse 97 Oximetry Constitutional: no acute distress, alert Eyes: non-icteric ENT: oropharynx moist Neck: supple Effort: normal Ascultation: Bilateral: clear Cardiovascular: other (RR, tachy, no mrg) Gastrointestinal: normoactive bowel sounds, soft, non-tender, non-distended Extremities: no cyanosis, no edema, pink and warm Neurologic: unable to assess Psychiatric: other (unable to assess) CBC and BMP: 12/18/20 05:01 12/20/20 06:54 ABG, PT/INR, D-dimer: ABG ABG pH 7.266 pH Units (7.350-7.450) L 12/16/20 19:29 ABG pCO2 28.5 mm Hg 12/16/20 19:29 ABG pO2 72.2 mm Hg (80.0-90.0) L 12/16/20 19:29 ABG O2 Saturation 93.4 % (95.0-99.0) L 12/16/20 19:29 PT/INR, D-dimer PT 16.0 Sec. (12.2-14.9) H 12/17/20 07:59 INR 1.30 (0.87-1.13) H 12/17/20 07:59 D-Dimer 3183.35 ng/mlDDU (0-234) H 12/16/20 18:59 Abnormal lab findings: Abnormal Labs 12/16/20 12/16/20 12/16/20 16:51 18:51 18:59 WBC 18.2 H RBC 3.60 L Hgb Hct RDW 18.0 H Lymph % (Auto) 4.1 L Lymph # (Auto) 0.8 L [place] # (Auto) 1.1 H Seg Neutrophils % 89.8 H Seg Neuts % (Manual) Lymphocytes % (Manual) Seg Neutrophils # 16.3 H Seg Neutrophils # Man Lymphocytes # (Manual) PT INR D-Dimer ABG pH ABG pO2 ABG HCO3 ABG O2 Saturation ABG Base Excess ABG Hemoglobin Oxyhemoglobin Sodium Potassium Chloride Carbon Dioxide BUN Creatinine Glucose POC Glucose 160 H Calcium Ferritin ALT Lactate Dehydrogenase Troponin T C-Reactive Protein NT-Pro-B Natriuret Pep Total Protein Albumin HDL Cholesterol Urine WBC (Auto) > 182.0 H 12/16/20 12/16/20 12/16/20 18:59 18:59 18:59 WBC RBC Hgb Hct RDW Lymph % (Auto) Lymph # (Auto) [place] # (Auto) Seg Neutrophils % Seg Neuts % (Manual) Lymphocytes % (Manual) Seg Neutrophils # Seg Neutrophils # Man Lymphocytes # (Manual) PT INR D-Dimer 3183.35 H ABG pH ABG pO2 ABG HCO3 ABG O2 Saturation ABG Base Excess ABG Hemoglobin Oxyhemoglobin Sodium Potassium 5.2 H Chloride Carbon Dioxide 13 L BUN 191 H Creatinine 5.8 H Glucose 187 H POC Glucose Calcium Ferritin ALT 70 H Lactate Dehydrogenase Troponin T 0.113 H* C-Reactive Protein NT-Pro-B Natriuret Pep 1116 H Total Protein 5.7 L Albumin 3.1 L HDL Cholesterol 24 L Urine WBC (Auto) 12/16/20 12/16/20 12/16/20 19:29 21:03 21:03 WBC RBC Hgb Hct RDW Lymph % (Auto) Lymph # (Auto) [place] # (Auto) Seg Neutrophils % Seg Neuts % (Manual) Lymphocytes % (Manual) Seg Neutrophils # Seg Neutrophils # Man Lymphocytes # (Manual) PT INR D-Dimer ABG pH 7.266 L ABG pO2 72.2 L ABG HCO3 12.7 L ABG O2 Saturation 93.4 L ABG Base Excess -12.9 L ABG Hemoglobin 11.4 L Oxyhemoglobin 91.6 L Sodium Potassium Chloride Carbon Dioxide BUN Creatinine Glucose 172 H POC Glucose Calcium Ferritin 559.4 H ALT Lactate Dehydrogenase 249 H Troponin T C-Reactive Protein 11.30 H NT-Pro-B Natriuret Pep Total Protein Albumin HDL Cholesterol Urine WBC (Auto) 12/17/20 12/17/20 12/17/20 06:28 07:59 07:59 WBC 15.5 H RBC 3.45 L Hgb Hct RDW 17.4 H Lymph % (Auto) Lymph # (Auto) [place] # (Auto) Seg Neutrophils % Seg Neuts % (Manual) 98.0 H Lymphocytes % (Manual) 1.0 L Seg Neutrophils # Seg Neutrophils # Man 15.2 H Lymphocytes # (Manual) 0.2 L PT 16.0 H INR 1.30 H D-Dimer ABG pH ABG pO2 ABG HCO3 ABG O2 Saturation ABG Base Excess ABG Hemoglobin Oxyhemoglobin Sodium Potassium Chloride Carbon Dioxide BUN Creatinine Glucose POC Glucose 167 H Calcium Ferritin ALT Lactate Dehydrogenase Troponin T C-Reactive Protein NT-Pro-B Natriuret Pep Total Protein Albumin HDL Cholesterol Urine WBC (Auto) 12/17/20 12/17/20 12/17/20 07:59 10:15 11:34 WBC RBC Hgb Hct RDW Lymph % (Auto) Lymph # (Auto) [place] # (Auto) Seg Neutrophils % Seg Neuts % (Manual) Lymphocytes % (Manual) Seg Neutrophils # Seg Neutrophils # Man Lymphocytes # (Manual) PT INR D-Dimer ABG pH ABG pO2 ABG HCO3 ABG O2 Saturation ABG Base Excess ABG Hemoglobin Oxyhemoglobin Sodium 147 H D Potassium Chloride 119.5 H Carbon Dioxide 10 L BUN 152 H Creatinine 4.2 H Glucose 168 H POC Glucose 116 H Calcium 7.7 L Ferritin ALT Lactate Dehydrogenase Troponin T 0.070 H D C-Reactive Protein NT-Pro-B Natriuret Pep Total Protein Albumin HDL Cholesterol Urine WBC (Auto) 12/17/20 12/17/20 12/18/20 17:43 23:22 05:01 WBC 11.9 H RBC 3.06 L Hgb 9.2 L Hct 27.5 L RDW 17.6 H Lymph % (Auto) Lymph # (Auto) Ro[place] # (Auto) Seg Neutrophils % Seg Neuts % (Manual) Lymphocytes % (Manual) Seg Neutrophils # Seg Neutrophils # Man Lymphocytes # (Manual) PT INR D-Dimer ABG pH ABG pO2 ABG HCO3 ABG O2 Saturation ABG Base Excess ABG Hemoglobin Oxyhemoglobin Sodium Potassium Chloride Carbon Dioxide BUN Creatinine Glucose POC Glucose 123 H 136 H Calcium Ferritin ALT Lactate Dehydrogenase Troponin T C-Reactive Protein NT-Pro-B Natriuret Pep Total Protein Albumin HDL Cholesterol Urine WBC (Auto) 12/18/20 12/18/20 12/19/20 05:01 05:37 04:41 WBC RBC Hgb Hct RDW Lymph % (Auto) Lymph # (Auto) [place] # (Auto) Seg Neutrophils % Seg Neuts % (Manual) Lymphocytes % (Manual) Seg Neutrophils # Seg Neutrophils # Man Lymphocytes # (Manual) PT INR D-Dimer ABG pH ABG pO2 ABG HCO3 ABG O2 Saturation ABG Base Excess ABG Hemoglobin Oxyhemoglobin Sodium 147 H Potassium Chloride 121.6 H Carbon Dioxide 11 L BUN 119 H Creatinine 3.1 H Glucose 124 H POC Glucose 122 H 200 H Calcium 8.2 L Ferritin ALT Lactate Dehydrogenase Troponin T C-Reactive Protein NT-Pro-B Natriuret Pep Total Protein Albumin HDL Cholesterol Urine WBC (Auto) 12/19/20 12/19/20 12/19/20 05:36 08:01 10:50 WBC RBC Hgb Hct RDW Lymph % (Auto) Lymph # (Auto) [place] # (Auto) Seg Neutrophils % Seg Neuts % (Manual) Lymphocytes % (Manual) Seg Neutrophils # Seg Neutrophils # Man Lymphocytes # (Manual) PT INR D-Dimer ABG pH ABG pO2 ABG HCO3 ABG O2 Saturation ABG Base Excess ABG Hemoglobin Oxyhemoglobin Sodium 148 H Potassium Chloride 123.8 H Carbon Dioxide 11 L BUN 99 H Creatinine 2.6 H Glucose POC Glucose 220 H 143 H Calcium 7.9 L Ferritin ALT Lactate Dehydrogenase Troponin T C-Reactive Protein NT-Pro-B Natriuret Pep Total Protein Albumin HDL Cholesterol Urine WBC (Auto) 12/20/20 06:54 WBC RBC Hgb Hct RDW Lymph % (Auto) Lymph # (Auto) [place] # (Auto) Seg Neutrophils % Seg Neuts % (Manual) Lymphocytes % (Manual) Seg Neutrophils # Seg Neutrophils # Man Lymphocytes # (Manual) PT INR D-Dimer ABG pH ABG pO2 ABG HCO3 ABG O2 Saturation ABG Base Excess ABG Hemoglobin Oxyhemoglobin Sodium 149 H Potassium 3.5 L D Chloride 123.1 H Carbon Dioxide 14 L BUN 86 H Creatinine 2.2 H Glucose 109 H POC Glucose Calcium 7.9 L Ferritin ALT Lactate Dehydrogenase Troponin T C-Reactive Protein NT-Pro-B Natriuret Pep Total Protein Albumin HDL Cholesterol Urine WBC (Auto) Chest x-ray: report reviewed, image reviewed Allied health notes reviewed: nursing
[2020-12-21] MEDS: D5W/0.45% NACL 1,000 ML IV SCH (17:29)
[2020-12-21] MEDS ORDERED: NEOMY 3.5 MG/BACIT 400 UNITS/POLY B 5000 UNITS/GM OINT PACKET TP ONE (18:27)
[2020-12-21 21:39] VITALS: BP 147/90
[2020-12-22] MEDS ORDERED: VANCOMYCIN/NS 1 GM/250 ML 1 GM/250 ML BAG IV ONE (08:00)
== END 2020-12-21 21:40 | disposition hospice, inpatient (51) | DRG 871 ==
LOC: ED 18:44 → EDBD 18:44 → 3A 22:04 → CC1 23:43 → 3A 12-18 17:48
PROVIDERS: ADMIT Internal Medicine Geriatric Medicine; ATTEND Internal Medicine
PROC: 06HY33Z Insertion of Infusion Device into Lower Vein, Percutaneous Approach (ICD-10-PCS; principal; 2020-12-16)
PROC: 4A033R1 Measurement of Arterial Saturation, Peripheral, Percutaneous Approach (ICD-10-PCS; 2020-12-16)
DX: A41.9 Sepsis, unspecified organism (principal); J18.9 Pneumonia, unspecified organism; N17.0 Acute kidney failure with tubular necrosis; R65.21 Severe sepsis with septic shock; G93.41 Metabolic encephalopathy; J44.0 Chronic obstructive pulmonary disease with (acute) lower respiratory infection; E87.2 Acidosis; E87.0 Hyperosmolality and hypernatremia; N30.00 Acute cystitis without hematuria; Z20.822 Contact with and (suspected) exposure to COVID-19; R74.01 Elevation of levels of liver transaminase levels; F31.9 Bipolar disorder, unspecified; L89.159 Pressure ulcer of sacral region, unspecified stage; E87.5 Hyperkalemia; F03.90 Unspecified dementia, unspecified severity, without behavioral disturbance, psychotic disturbance, mood disturbance, and anxiety; Z88.6 Allergy status to analgesic agent; Z88.5 Allergy status to narcotic agent; Z88.8 Allergy status to other drugs, medicaments and biological substances
CPT/HCPCS: 36415; 70450; 71045; 80048; 80061; 80076; 80202; 81001; 82140; 82728; 82803; 82947; 82962; 83615; 83880; 84145; 84443; 84484; 85007; 85025; 85027; 85379; 85610; 85730; 86140; 87040; 87086; 87493; 87641; 93005; 93306; 94640; 94644; 96365; 96375; G0378; A6250; J0692; J1100; J1170; J1644; J2543; J2930; J3370; J7030; J7040; J7050; Q0177; U0003